=== PATIENT | female | born 1940 | race African-American/Black ===

== ENCOUNTER 2016-10-27 05:20 | Day surgery (SDC) ==
[2016-10-27] MEDS ORDERED: LR 1,000 ML ONE (05:26)
[2016-10-27] MEDS ORDERED: XYLOCAINE 1%/EPI 1:100,000 ONE (06:22)
[2016-10-27] MEDS ORDERED: HEPARIN ONE (06:22)
[2016-10-27] MEDS ORDERED: SENSORCAINE 0.25%/EPI 1:200,000 ONE (06:22)
[2016-10-27] MEDS ORDERED: NS 250 ML ONE (06:23)
[2016-10-27] MEDS: KEFZOL 1 GM/D5W 50 ML ONE ×2 (06:54→07:20)
[2016-10-27] MEDS ORDERED: DIPRIVAN 1% ONE (08:10)
[2016-10-27] MEDS ORDERED: ZOFRAN IV PRN (09:05)
[2016-10-27] MEDS ORDERED: NORCO-5 PO PRN (09:05)
[2016-10-27] MEDS ORDERED: BUPRENEX IV PRN (09:05)
--- NOTE | 2016-10-27 09:28 | Diag Imaging Result Document ---
PROCEDURE NAME: CHEST-PORTABLE - 10/27/2016 AP PORTABLE CHEST: TIME: 0810 hours. FINDINGS: There is a right-sided internal jugular Port-A-Cath with its tip in the upper portion of the superior vena cava. Otherwise, there has been no appreciable change since 07/24/2016, considering differences in inspiration. IMPRESSION: 1. No evidence of pneumothorax or pleural fluid collection. 2. Right Port-A-Cath, as described.
[2016-10-27 09:50] VITALS: BP 195/78
[2016-10-27] MEDS ORDERED: XYLOCAINE-MPF 2% ONE (10:09)
--- NOTE | 2016-10-27 12:24 | OPERATIVE NOTE ---
PROCEDURE DATE: 10/27/2016 PREOPERATIVE DIAGNOSES: Multiple myeloma. POSTOPERATIVE DIAGNOSIS: Multiple myeloma. PROCEDURE PERFORMED: Insertion of tunneled central venous catheter with port using ultrasound and fluoroscopic guidance. SURGEON: Rafa Whipple MD SCALEMAN: Sukhdev Galicia. ANESTHESIA: General. ESTIMATED BLOOD LOSS: 5 mL. COMPLICATIONS: None apparent. TECHNIQUE: The patient was brought to the operating room and placed supine on the table. General anesthesia was induced. She was prepped and draped in the usual sterile fashion. Marcaine 0.25% with epinephrine was used to anesthetize our skin incisions. An incision was made below the right clavicle. Dissection was carried down through the fat with cautery. The pocket for the port was created anterior to the pectoral fascia with cautery and blunt finger dissection. The patient was then placed in Trendelenburg. The right internal jugular vein was visualized with the [facility] ultrasound. The skin over the vein was anesthetized with Marcaine and an 11 blade was used to make a small incision in the skin. The vein was then accessed under ultrasound guidance, drawing back dark, nonpulsatile blood. The wire passed easily through the needle and was confirmed to be in the vein with ultrasound and in the right atrium with fluoroscopy. The wire was fixed to the drape. We then tunneled the catheter from the lower incision out through the neck incision. A dilator and sheath were passed over the wire. The wire and dilator were removed. The catheter was passed into the sheath. The sheath was removed. The tip of the catheter was checked with fluoroscopy and found to be in the superior vena cava right at the atrial junction. The catheter was then cut to size and fixed to the port. The port was anchored to the fascia with 2-0 Surgipro at 2 o'clock, 6 o'clock, and 10 o'clock. The port was accessed. It matthew back blood and was flushed with saline easily. The incisions were closed with interrupted subcutaneous 3-0 Polysorb and running 4-0 subcuticular Monocryl, and then Steri-Strips. There were no apparent complications. She was awakened in stable condition and transferred to the recovery room where a chest x-ray was ordered.
== END 2016-10-27 09:35 | disposition home or self-care (01) ==
LOC: OPS 05:20
PROVIDERS: ATTEND Surgery
DX: C90.00 Multiple myeloma not having achieved remission (principal); F17.210 Nicotine dependence, cigarettes, uncomplicated; M19.90 Unspecified osteoarthritis, unspecified site; I10 Essential (primary) hypertension
CPT/HCPCS: 71010; 77001; C1788; J0690; J7050; J7120

== ENCOUNTER 2016-12-12 19:04 | Inpatient (IN) ==
[2016-12-12] MEDS ORDERED: TYLENOL PO ONE (19:27)
[2016-12-12 19:36] LABS: MANUAL DIFF NEEDED? NO
[2016-12-12 19:39] LABS: BASO% 0.2 % (0.0-0.8); HEMATOCRIT 36.5 % (37.0-47.0); HEMOGLOBIN 12.2 g/dL (12.0-16.0); IMM GRAN# 0.02 X1000 (0.0-0.04); IMM GRAN% 0.3 % (0.0-0.5); LYMPH# 0.37 X1000 (1.2-3.4); LYMPH% 5.8 % (20.5-51.1); MCH 34.6 PG (27-31); MCHC 33.4 g/dL (33-37); MCV 103.4 FL (81-99); MONO# 1.21 X1000 (0.11-0.59); MONO% 18.9 % (1.7-9.3); MPV 11.7 FL (7.4-10.4); NEUT% 74.8 % (42.2-75.2); PLT 116 X1000 (130-400); RBC 3.53 XMIL (4.2-5.4)
--- NOTE | 2016-12-12 19:46 | ED EKG INTERP ---
EKG Interpretation - EKG Time of EKG reading by physician:: 19:37 EKG Read and Signed by:: Tim Hodge EKG Interpretation (*Must complete 3 of following elements*): Abnormal ( Possible L atrial enalrgement) Rate: 88 Rhythm: Normal sinus rhythm Attestation - Scribe Verification/Attestation Scribe:: Chico Matamoros Acting as Scribe for:: Tim Hodge Scribrenu documention review:: This chart was documented by a scribe and accurately reflects the service the provider performed and the decisions made by the provider.
[2016-12-12 19:48] LABS: INR 1.01; PROTIME 10.7 Seconds (9.2-11.7); PTT 27.2 Seconds (22.0-36.0)
--- NOTE | 2016-12-12 19:55 | PROVIDER DOCUMENTATION ---
HPI-General Adult - General Chief Complaint: Altered Mental Status Stated Complaint: AMS Time Seen by Provider: 12/12/16 19:21 Source: patient, family (daughter/son-in-law) Allergies/Adverse Reactions: Patient Allergies Allergy/AdvReac Type Severity Reaction Status Date / Time No Known Allergies Allergy Verified 10/26/16 10:06 Home Medications: Home Medication List Medication Instructions Recorded Confirmed Last Taken Type Nebivolol HCl [Bystolic] 10 mg PO DAILY 07/14/13 12/12/16 10/27/16 04:30 History 10 Alprazolam [Xanax] 0.5 mg PO PRN PRN 03/23/16 12/12/16 10/25/16 History 0.25 Folic Acid/Mv,Fe,Other Min/Lut 1 each PO DAILY 10/26/16 12/12/16 Unknown History [Certagen Tablet] Hydrocodone/Acetaminophen [Gallina 1 each PO PRN PRN #20 tablet 10/27/16 12/12/16 Unknown Rx 7.5-325 Tablet] Amlodipine [Norvasc] 5 mg PO DAILY 12/12/16 12/12/16 Unknown History Nebivolol HCl [Bystolic] 10 mg PO DAILY 12/12/16 12/12/16 Unknown History - History of Present Illness -Gen Adult Nature of Presenting Problems: Pt is a 76 yof who presents to ER via EMS with CC of AMS. Pt's daughter reports that pt woke up this am saying that she didn't feel right, had her temperature checked and had a fever of 102. Pt became more lethargic, confused, and altered as the day progressed and pt's daughter was going to take pt to see her doctor when she seized up (muscle stiffness) for 10 seconds prior to EMS arrival on scene. Pt complains of cough, sore throat, rhinorrhea, diarrhea, sob. Location of Pain/Injury: reports: none Pain Radiation: reports: no radiation Quality of Pain: reports: none Severity: reports: moderate Onset/Duration: reports: this morning Timing: reports: still present, improving Associated Symptoms: reports: cough, diarrhea, fatigue, seizure, weakness, trouble walking, other (AMS). denies: chest pain, constipation, diaphoresis, dizziness, fever/chills, headaches, loss of appetite, nausea, syncope, vomiting Review of Systems - Adult - REVIEW OF SYSTEMS - ADULT Constitutional: reports: fever (102), fatique. denies: chills, night sweats Eyes: reports: no symptoms reported Ears, Nose, Mouth & Throat: reports: no symptoms reported Cardiovascular: reports: no symptoms reported Respiratory: reports: cough, excessive sputum production, shortness of breath. denies: chronic cough, dyspnea on exertion, hemoptysis, pleurisy, wheezing Gastrointestinal: reports: diarrhea. denies: abdominal pain, hematemesis, constipation, difficulty swallowing, frequent heartburn, nausea, poor appetite, rectal bleeding, vomiting Genitourinary: reports: no symptoms reported Musculoskeletal: reports: no symptoms reported Integumentary: reports: no symptoms reported Neurological: reports: no symptoms reported Psychiatric: reports: other (AMS/confusion). denies: anxiety, anti-depressant use, alcohol/drug dependence, depression, emotional problems, insomnia, panic attacks, suicidal thoughts Endocrine: reports: no symptoms reported Hematologic/Lymphatic: reports: no symptoms reported Allergic/Immunologic: reports: no symptoms reported All Other Systems: Reviewed and Negative Past History - Adult - PAST MEDICAL HISTORY-ADULT Review of Records: reports: Nursing Assessment Review, Medications Reviewed Cardiovascular: reports: HTN Other Conditions: reports: other cancer (multiple myleoma) - PRIOR SURGERIES/PROCEDURES Surgical/Procedure History: reports: cholecystectomy (stent in leg), hysterectomy, other (stent ) - IMMUNIZATION STATUS Childhood Immunizations: See Nurse Assessment Flu Vaccine: See Nurse Assessment Physical Exam-General - PHYSICAL EXAM-ADULT Initial Vital Signs Reviewed: Yes - CONSTITUTIONAL General Appearance: appears well, alert, mild distress, lethargic, slow to respond. negative: obese, thin, anxious, obtunded, combative - NECK Neck: non-tender, full range of motion, supple. negative: lymphadenopathy, thyromegaly - RESPIRATORY Respiratory: chest non-tender, lungs clear, normal breath sounds. negative: respiratory distress, decreased breath sounds, accessory muscle use, rhonchi, wheezing - CARDIOVASCULAR Cardiovascular: normal peripheral pulses, regular rate, rhythm. negative: bradycardia, tachycardia, irregularly irregular - GASTROINTESTINAL (ABDOMEN) Abdominal Exam: negative: normal bowel sounds, non tender, soft, abnormal bowel sounds, distended, guarding, tenderness, mass - LYMPHATIC Lymphatic: no adenopathy. negative: axilla node tender, cervical node tenderness, inguinal node tender - MUSCULOSKELETAL Back Exam: no CVA tenderness, no vertebral tenderness. negative: CVA tenderness , decreased range of motion, ecchymosis, muscle spasm, vertebral tenderness - NEUROLOGIC Neurologic: grossly normal, no motor/sensory deficits - PSYCHIATRIC Psych/Mental Status: normal thought content, normal thought process, oriented x 3, disheveled Progress - PLAN OF CARE/RESULTS Progress/Plan/Lab Results: POC: Chest X-ray; Head CT; Blood work; Ammonia 2045: Influenza screen came back, positive for type A. Will be given tamiflu. Vital Signs - 24 hr 12/12/16 20:08 Pulse Rate 86 Respiratory 28 H Rate Blood Pressure 170/83 O2 Sat by Pulse 97 Oximetry Orders Category Date Time Status Cardiac Monitoring DIRECTED Care 12/12/16 19:26 Active Finger Stick Blood Sugar (ED) DIRECTED Care 12/12/16 19:26 Active Saline Loc NOW Care 12/12/16 19:26 Active CHEST-2 VIEWS [RAD] Stat Exams 12/12/16 19:27 Taken HEAD W/O CONTRAST [CT] Stat Exams 12/12/16 19:26 Ordered ALCOHOL BLOOD Stat Lab 12/12/16 19:20 Completed AMMONIA [CHEM] Stat Lab 12/12/16 20:35 Received BLOOD CULTURE [BLDCUL] Stat Lab 12/12/16 19:20 Results CBC WITH ELECTRONIC DIFF [HEME] Stat Lab 12/12/16 19:20 Completed CK PROFILE [SP CHEM] Stat Lab 12/12/16 19:20 Completed COMPREHENSIVE METABOLIC PANEL [CHEM] Stat Lab 12/12/16 19:20 Completed INFLUENZA SCREEN A/B Stat Lab 12/12/16 20:01 Completed LACTATE, PLASMA [CHEM] Stat Lab 12/12/16 19:20 Completed LIPASE [CHEM] Stat Lab 12/12/16 19:20 Completed PROTIME WITH INR [COAG] Stat Lab 12/12/16 19:20 Completed PTT [COAG] Stat Lab 12/12/16 19:20 Completed TROPONIN T Stat Lab 12/12/16 19:20 Completed URINALYSIS W/POSS RFLX CULT [URINALYSIS] Stat Lab 12/12/16 20:27 Completed URINE DRUG SCREEN Stat Lab 12/12/16 20:27 Received Acetaminophen [Tylenol] Med 12/12/16 19:27 Discontinued 1,000 mg PO NOW ONE Oseltamivir [Tamiflu] Med 12/12/16 20:46 Once 75 mg PO NOW ONE Pulse Oximetry Stat Oth 12/12/16 19:26 Active EKG [EKG] Stat Ther 12/12/16 19:26 Ordered Laboratory Tests 12/12/16 12/12/16 12/12/16 19:20 19:20 19:20 WBC 6.40 RBC 3.53 L Hgb 12.2 Hct 36.5 L MCV 103.4 H MCH 34.6 H MCHC 33.4 RDW Std Deviation 13.5 Plt Count 116 L MPV 11.7 H Immature Gran % (Auto) 0.3 Neut % (Auto) 74.8 Lymph % (Auto) 5.8 L Chambers % (Auto) 18.9 H Eos % (Auto) 0.0 Baso % (Auto) 0.2 Immature Gran # (Auto) 0.02 Neut # (Auto) 4.79 Lymph # (Auto) 0.37 L Chambers # (Auto) 1.21 H Eos # (Auto) 0.00 Baso # (Auto) 0.01 PT INR PTT (Actin FS) Sodium 138 Potassium 4.1 Chloride 101 Carbon Dioxide 20 L Anion Gap 17 BUN 12 Creatinine 1.3 H Estimated GFR/1.73 m2 48 BUN/Creatinine Ratio 9 Glucose 102 Calculated Osmolality 276 Calcium 8.3 L Total Bilirubin 0.70 AST 541 H ALT 316 H Alkaline Phosphatase 179 H Creatine Kinase 60 Troponin T Total Protein 8.0 Albumin 3.4 L Globulin 4.6 Albumin/Globulin Ratio 0.7 Lipase Plasma Lactate Urine Source Urine Color Urine Turbidity Urine pH Ur Specific [place] Urine Protein Ur Glucose (Stick) Ur Ketones (Stick) Urine Blood Urine Nitrite Urine Bilirubin Urobilinogen Dipstick Urine Leukocytes Urine WBC (Auto) Urine RBC (Auto) U Epithel Cells (Auto) Urine Bacteria (Auto) Plasma/Serum Ethyl Alc 12/12/16 12/12/16 12/12/16 19:20 19:20 19:20 WBC RBC Hgb Hct MCV MCH MCHC RDW Std Deviation Plt Count MPV Immature Gran % (Auto) Neut % (Auto) Lymph % (Auto) Chambers % (Auto) Eos % (Auto) Baso % (Auto) Immature Gran # (Auto) Neut # (Auto) Lymph # (Auto) Chambers # (Auto) Eos # (Auto) Baso # (Auto) PT 10.7 INR 1.01 PTT (Actin FS) 27.2 Sodium Potassium Chloride Carbon Dioxide Anion Gap BUN Creatinine Estimated GFR/1.73 m2 BUN/Creatinine Ratio Glucose Calculated Osmolality Calcium Total Bilirubin AST ALT Alkaline Phosphatase Creatine Kinase Troponin T < 0.010 Total Protein Albumin Globulin Albumin/Globulin Ratio Lipase Plasma Lactate 1.2 Urine Source Urine Color Urine Turbidity Urine pH Ur Specific [place] Urine Protein Ur Glucose (Stick) Ur Ketones (Stick) Urine Blood Urine Nitrite Urine Bilirubin Urobilinogen Dipstick Urine Leukocytes Urine WBC (Auto) Urine RBC (Auto) U Epithel Cells (Auto) Urine Bacteria (Auto) Plasma/Serum Ethyl Alc 12/12/16 12/12/16 19:20 20:27 WBC RBC Hgb Hct MCV MCH MCHC RDW Std Deviation Plt Count MPV Immature Gran % (Auto) Neut % (Auto) Lymph % (Auto) Chambers % (Auto) Eos % (Auto) Baso % (Auto) Immature Gran # (Auto) Neut # (Auto) Lymph # (Auto) Chambers # (Auto) Eos # (Auto) Baso # (Auto) PT INR PTT (Actin FS) Sodium Potassium Chloride Carbon Dioxide Anion Gap BUN Creatinine Estimated GFR/1.73 m2 BUN/Creatinine Ratio Glucose Calculated Osmolality Calcium Total Bilirubin AST ALT Alkaline Phosphatase Creatine Kinase Troponin T Total Protein Albumin Globulin Albumin/Globulin Ratio Lipase 21 Plasma Lactate Urine Source CATH Urine Color YELLOW Urine Turbidity CLEAR Urine pH 6.5 Ur Specific [place] 1.016 Urine Protein 70 A Ur Glucose (Stick) NEGATIVE Ur Ketones (Stick) NEGATIVE Urine Blood NEGATIVE Urine Nitrite NEGATIVE Urine Bilirubin NEGATIVE Urobilinogen Dipstick NORMAL Urine Leukocytes NEGATIVE Urine WBC (Auto) <10 Urine RBC (Auto) <10 U Epithel Cells (Auto) <10 Urine Bacteria (Auto) NEGATIVE Plasma/Serum Ethyl Alc - XRAY 1 XRAY: Bilateral XRAY Study: Chest Impression: See EMR Report XRAY Interpretation: Normal - CT/MRI 1 CT Study: Head Impression: See EMR Report CT Results: No acute pathology - CONSULTS/PCP/HOSPITALIST Notification #1 *Consult/PCP/Hospitalist*: Dr. Ramirez (Hospitalist) Time Discussed: 21:03 Consult Disposition: Admit Departure - Departure Time of Disposition Order: 20:46 DIAGNOSIS: Influenza A Disposition: ADMITTED INPATIENT 09 Certified Medical Emergency: Emergent Condition: Stable Additional Instructions: ED Follow Up Instructions: You have been treated by a care provider in the Emergency Department. These instructions are being provided to you so you can have an understanding of how to care for yourself upon discharge. Upon discharge from the Emergency Department, you are responsible for making arrangements for follow-up care by a physician of your choice. Take all prescribed medications as directed. Return to the Emergency Department immediately for any new or worsening symptoms. You may call the Physician Referral phone number at [phone] to obtain a list of Physicians who are taking new patients. Referrals: None,PCP [Primary Care Provider] - Attestation - Scribe Verification/Attestation Scribe:: Chico Matamoros Acting as Scribe for:: Tim Hodge Scribe documention review:: This chart was documented by a scribe and accurately reflects the service the provider performed and the decisions made by the provider.
[2016-12-12 19:56] LABS: ALBUMIN 3.4 g/dL (3.5-5.0); CALCIUM 8.3 mg/dL (8.8-10.2); POTASSIUM 4.1 mmol/L (3.5-5.1); TOTAL BILIRUBIN 0.7 mg/dL (0.20-1.00)
[2016-12-12 20:35] LABS: URINE CULTURE NEEDED? NO; URINE MICRO REVIEW NEEDED? NO; URINE SOURCE CATH
[2016-12-12 20:40] LABS: BILIRUBIN URINE NEGATIVE (NEGATIVE); BLOOD URINE NEGATIVE (NEGATIVE); COLOR YELLOW; GLUCOSE URINE NEGATIVE (NEGATIVE); LEUKOCYTES URINE NEGATIVE (NEGATIVE); NITRITE URINE NEGATIVE (NEGATIVE); PH URINE 6.5; PROTEIN URINE 70 mg/dL (NEGATIVE); SP GRAVITY URINE 1.016; TURBIDITY URINE CLEAR (CLEAR); UROBILINOGEN URINE NORMAL (NORMAL)
[2016-12-12 20:44] LABS: UR EPITHELIAL CELLS <10 /HPF (<10); URINE BACTERIA NEGATIVE /HPF; URINE RBC <10 /HPF (<10); URINE WBC <10 /HPF (<10)
[2016-12-12] MEDS ORDERED: TAMIFLU PO ONE (20:46)
[2016-12-12 20:53] LABS: UR AMPHETAMINES QUAL NONE DETECTED (NONE DETECT); UR BARBITUATES QUAL NONE DETECTED (NONE DETECT); UR BENZODIAZEPIN QUAL NONE DETECTED (NONE DETECT); UR CANNABINOIDS QUAL NONE DETECTED (NONE DETECT); UR COCAINE QUAL NONE DETECTED (NONE DETECT); UR METHADONE QUAL NONE DETECTED (NONE DETECT); UR OPIATES QUAL NONE DETECTED (NONE DETECT); UR OXYCODONE QUAL NONE DETECTED (NONE DETECT); UR PCP QUAL NONE DETECTED (NONE DETECT)
[2016-12-12] MEDS ORDERED: XANAX PO PRN (22:54)
[2016-12-12] MEDS ORDERED: LOVENOX SUBQ SCH (23:50)
[2016-12-12] MEDS ORDERED: ZOFRAN IV PRN (23:50)
[2016-12-12] MEDS ORDERED: SODIUM CHLORIDE 0.9% INJ SCH (23:50)
[2016-12-13] MEDS: NS 1,000 ML IV SCH ×2 (00:56→16:29)
[2016-12-13] MEDS: PROTONIX IV SCH (00:56)
--- NOTE | 2016-12-13 05:28 | EKG Report ---
Test Performed on : 12/12/2016 7:37:14 PM Test Reason : AMS Blood Pressure : / mmHG Vent. Rate : 088 BPM Atrial Rate : 088 BPM P-R Int : 140 ms QRS Dur : 072 ms QT Int : 390 ms P-R-T Axes : 066 010 087 degrees QTc Int : 471 ms Normal sinus rhythm. Possible Left atrial enlargement Borderline ECG When compared with ECG of 24-JUL-2016 18:10, Vent. rate has increased BY 34 BPM QT has lengthened Unconfirmed Result
[2016-12-13] MEDS ORDERED: TYLENOL ONE (06:40)
[2016-12-13] MEDS: TYLENOL PO PRN ×3 (06:44→22:25)
--- NOTE | 2016-12-13 07:00 | Diag Imaging Result Document ---
PROCEDURE NAME: CHEST-2 VIEWS - 12/12/2016 FRONTAL AND LATERAL CHEST, TWO VIEWS: COMPARISON: Compared to 10/27/2016. FINDINGS: The lungs are well expanded. The heart is not enlarged. The vessels are not distended. No change in the right jugular line. No pneumothorax. No pleural effusions. No infiltrates. IMPRESSION: No pneumonia.
--- NOTE | 2016-12-13 07:01 | HISTORY AND PHYSICAL ---
PRIMARY CARE PROVIDER: Mauricio Vincent MD in [place]. STONEWORKING BELT SANDER: Melvin Gomez MD. CHIEF COMPLAINT: Altered mental status and fever. HISTORY OF PRESENT ILLNESS: This is a 76-year-old, female with a history of multiple myeloma, hypertension, and anemia of chronic disease who presents to the emergency room today after having complaint of cough that started 2 days ago. The patient and her daughter at the bedside are poor historians. Apparently, the patient lives alone. She started having a cough. The daughter went to get her. The daughter states that she seized up. There was no tonic- clonic movement, just muscle stiffness. She did not lose consciousness. She did not have bowel or bladder incontinence. Prior to EMS arrival on the scene was when she had this stiffness. When they arrived, she was normal, complaining of cough, sore throat, diarrhea, runny nose and shortness of breath. On arrival to the emergency room, a CT of her head was obtained, which showed no acute pathology. Chest x-ray was no acute disease. Laboratory data was similar to patient's baseline other than an AST of 541 and ALT of 319 and a positive influenza A swab. She will be admitted for further evaluation and treatment. PAST MEDICAL HISTORY: Multiple myeloma without achieving remission. Polyneuropathy. Anemia of chronic disease. Iron deficiency. PREVIOUS SURGICAL HISTORY: 1. Port-A-Cath placement right-side of chest. 2. Hysterectomy. 3. Cholecystectomy. 4. Peripheral vascular disease with stenting to leg. SOCIAL HISTORY: She lives alone. Continues to smoke daily around a 1/4 pack of cigarettes a day. Uses alcohol rarely. Denies illicit drug use. FAMILY HISTORY: Positive for alcohol abuse in the father. Anemia in the daughter. Arthritis in the mother. Cancer of unknown origin in a brother, depression in the daughter. Hyperlipidemia in the daughter, hypertension in the brother, father, mother and sister. ALLERGIES: No known drug allergies. HOME MEDICATIONS: 1. Bystolic 10 mg p.o. daily. 2. Xanax 0.5 mg p.o. p.r.n. 3. Multivitamin 1 p.o. daily. 4. [place] 7.5 one p.o. p.r.n. 5. Norvasc 5 mg p.o. daily. REVIEW OF SYSTEMS: Fourteen point review of systems conducted with patient. All systems negative except for pertinent positives listed above in the HPI. PHYSICAL EXAMINATION: VITAL SIGNS: Temperature 97.4, pulse 83, respirations 23, blood pressure 125/60 , oxygen saturation 99% on room air. GENERAL: Pleasantly confused, 76-year-old female, who is oriented to person, place, and situation, but does have intermittent confusion. No acute distress lying in the ER stretcher. HEENT: Head is atraumatic, normocephalic. Pupils equal, round, reactive to light. Extraocular eye movement intact. Sclerae is anicteric. Conjunctivae is mildly pale. Oral mucosa is dry. Postnasal drip and rhinorrhea noted during ENT assessment. NECK: Supple. No JVD. No thyromegaly. Trachea is midline. CARDIAC: S1-S2 appreciated. No murmurs, gallops, rubs. Regular rhythm. LUNGS: Decreased airway entry bilaterally. Mildly prolonged expiratory phase. No rhonchi, no rales. Symmetrical rise and fall with respirations. ABDOMEN: Soft, nondistended, nontender. Bowel sounds present in all 4 quadrants. Normoactive. No pulsatile mass. No organomegaly. EXTREMITIES: No clubbing, cyanosis, or edema. Decreased pedal pulses bilaterally. GENITOURINARY: Patient voids. No bladder distention. Otherwise deferred. SKIN: Warm dry and intact. No acute lesions or rash. NEUROLOGICAL: Patient is intermittently confused. However, oriented to person , place and situation. DIAGNOSTIC DATA: CT of the head, no acute intracranial process. Chest x-ray shows no acute disease. LABORATORY DATA: WBC 6.40, hemoglobin 12.2, hematocrit 36.5, platelet count 116. Coags within normal limits. Sodium 138, potassium 4.1, chloride 101, carbon dioxide 20, BUN 12, creatinine 1.3, glucose 102. AST 541, ALT 316, alkaline phosphate 179. Urine unremarkable. Toxicology screen negative. ASSESSMENT AND PLAN: 1. Influenza A. We will start the patient on Tamiflu 75 mg p.o. b.i.d. for the next 5 days. 2. Hypertension. Continue her Norvasc and Bystolic. 3. Anxiety, continue Xanax. 4. Chronic renal insufficiency. Give gentle fluid hydration, normal saline at 70 mL an hour. 5. Altered mental status. This could be secondary to febrile illness. Also could be related to acute hepatic encephalopathy. We will rule this out. 6. Acute hepatitis. Likely secondary to viral influenza. We will send a hepatitis panel. Consult Dr. Isabella Malhotra for further evaluation related to elevated liver function tests. We will check an ammonia level for source of confusion as well. Further recommendations per patient clinical course. Dictated by MELISSA Tapia for Smith Ramirez MD I did an independent exam and assessment of the patient and discussed plan of care with BATH STEWARD CASSANDRA
--- NOTE | 2016-12-13 07:16 | Diag Imaging Result Document ---
PROCEDURE NAME: HEAD W/O CONTRAST - 12/12/2016 STUDY: CT brain without contrast. COMPARISON: 07/24/16. FINDINGS: No parenchymal hemorrhage. No epidural or subdural hematoma. No subarachnoid hemorrhage. No mass identified on this noncontrasted exam. There are chronic microvascular ischemic changes with an appearance similar to that of the prior exam. No hydrocephalus. No sinus opacification. IMPRESSION: 1. No hemorrhage. 2. Chronic microvascular ischemic changes. A preliminary report was given at 8:07 p.m.
[2016-12-13 07:40] LABS: ALBUMIN 2.8 g/dL (3.5-5.0); POTASSIUM 3.8 mmol/L (3.5-5.1); TOTAL BILIRUBIN 0.61 mg/dL (0.20-1.00); TOTAL PROTEIN 7.1 g/dL (6.3-8.3)
[2016-12-13 07:52] LABS: BASO% 0.2 % (0.0-0.8); EOS# 0.01 X1000 (0.0-0.7); EOS% 0.2 % (0.0-10.0); HEMATOCRIT 33.3 % (37.0-47.0); HEMOGLOBIN 11.1 g/dL (12.0-16.0); LYMPH# 0.63 X1000 (1.2-3.4); LYMPH% 13.8 % (20.5-51.1); MANUAL DIFF NEEDED? YES; MCH 34.5 PG (27-31); MCHC 33.3 g/dL (33-37); MCV 103.4 FL (81-99); MONO# 1.24 X1000 (0.11-0.59); MONO% 27.1 % (1.7-9.3); NEUT% 58.7 % (42.2-75.2); PLT 109 X1000 (130-400); RBC 3.22 XMIL (4.2-5.4)
[2016-12-13 08:20] LABS: BANDS 7 % (0-1); LYMPHS 10 % (21-51); MONO 25 % (1-9)
[2016-12-13 08:21] LABS: LARGE PLATELETS OCCASIONAL
[2016-12-13] MEDS: NORVASC PO SCH (08:35)
[2016-12-13] MEDS: TAMIFLU PO SCH ×2 (08:35→22:25)
[2016-12-13] MEDS: BYSTOLIC PO SCH (09:22)
[2016-12-13] MEDS: CENTRUM TABLET PO SCH (09:22)
[2016-12-13] MEDS ORDERED: XANAX PO PRN (12:53)
--- NOTE | 2016-12-13 15:36 | PROGRESS NOTE ---
DATE: 12/13/2016 SUBJECTIVE: The patient states that she feels a lot better at this time. She denies any nausea, vomiting, or diarrhea. OBJECTIVE: Vital Signs: Temperature 99 degrees, blood pressure 140/70, heart rate 70, respirations 16, O2 saturations 97% on room air. General Appearance: This is an elderly female, lying comfortably on the stretcher, in no acute distress. Head: Normocephalic, atraumatic. Heart: S1, S2 normal. Regular rate and rhythm. Lungs: Clear to auscultation bilaterally. No wheezing. No rales. No rhonchi. Abdomen: Positive bowel sounds. Soft, nontender, nondistended. Extremities: No edema. No cyanosis. No calf tenderness. Neurologic: The patient is alert and oriented x3. No focal neurologic deficits noted. LABS: White blood cell count 4.5, hemoglobin 11, hematocrit 33, platelets 109,000. Sodium 132, potassium 3.8, chloride 98, CO2 22, BUN 13, creatinine 1.1. Glucose 100. AST 202, ALT 200, alkaline phosphatase 141. ASSESSMENT AND PLAN: 1. Influenza A. We will continue with supportive care. The patient is currently on Tamiflu. The patient's chest x-ray is negative. 2. Elevated liver function tests. Will order a hepatitis profile, as well as an abdominal ultrasound. GI has been consulted as well. 3. Multiple myeloma. The patient is followed by Dr. Melvin Gomez. He has been consulted for further recommendations. 4. Hypertension. Controlled. Continue on Bystolic and Norvasc. 5. Anxiety disorder. Continue on p.r.n. Xanax. 6. Thrombocytopenia. Will discontinue the Lovenox at this time and monitor the patient's platelet count closely. No active bleeding noted. 7. Will consult physical therapy.
--- NOTE | 2016-12-13 16:52 | Diag Imaging Result Document ---
PROCEDURE NAME: US ABDOMEN-COMPLETE - 12/13/2016 ABDOMINAL ULTRASOUND: FINDINGS: Normal pancreas. No aneurysmal dilatation to the abdominal aorta. Normal inferior vena cava. No focal hepatic abnormality. A 1.6 cm septated cyst arises from the upper pole of the right kidney. No stone or hydronephrosis. The common bile duct measures 8 mm. The gallbladder is not present. Normal left kidney. No hydronephrosis. The spleen is not enlarged. No ascites. IMPRESSION: 1. Cholecystectomy. 2. Small right renal cyst.
[2016-12-14] MEDS: PROTONIX IV SCH (00:39)
[2016-12-14 03:15] VITALS: BP 138/62
[2016-12-14 06:59] LABS: MANUAL DIFF NEEDED? NO
[2016-12-14 07:03] LABS: BASO% 0.2 % (0.0-0.8); EOS# 0.04 X1000 (0.0-0.7); EOS% 0.8 % (0.0-10.0); HEMATOCRIT 32.7 % (37.0-47.0); HEMOGLOBIN 10.8 g/dL (12.0-16.0); IMM GRAN# 0.02 X1000 (0.0-0.04); IMM GRAN% 0.4 % (0.0-0.5); LYMPH# 0.97 X1000 (1.2-3.4); LYMPH% 19.1 % (20.5-51.1); MCH 34.2 PG (27-31); MCV 103.5 FL (81-99); MONO# 0.93 X1000 (0.11-0.59); MONO% 18.3 % (1.7-9.3); MPV 12.9 FL (7.4-10.4); NEUT% 61.2 % (42.2-75.2); PLT 103 X1000 (130-400); RBC 3.16 XMIL (4.2-5.4)
[2016-12-14 07:42] LABS: AGAP 13; ALKALINE PHOSPHATASE 116 U/L (32-104); BUN 13 mg/dL (8-22); CALCIUM 7.8 mg/dL (8.8-10.2); CHLORIDE 107 mmol/L (98-107); COSMO 279; GOT 71 U/L (10-30); GPT 113 U/L (10-36); POTASSIUM 3.9 mmol/L (3.5-5.1); SODIUM 140 mmol/L (136-145); TCO2 20 mmol/L (25-35); TOTAL BILIRUBIN 0.37 mg/dL (0.20-1.00); TOTAL PROTEIN 6.9 g/dL (6.3-8.3)
[2016-12-14] MEDS: CENTRUM TABLET PO SCH (08:09)
[2016-12-14] MEDS: TAMIFLU PO SCH (08:09)
[2016-12-14] MEDS: NS 1,000 ML IV SCH (08:10)
[2016-12-14] MEDS: NORVASC PO SCH (08:10)
[2016-12-14] MEDS: BYSTOLIC PO SCH (08:10)
[2016-12-14] MEDS: TYLENOL PO PRN (08:35)
[2016-12-14 10:35] LABS: HEPATITIS PROFILE ACUTE SEE COMMENTS (())
[2016-12-14] MEDS ORDERED: HEPARIN ONE (14:33)
--- NOTE | 2016-12-14 16:24 | CONSULTATION ---
DATE OF CONSULTATION: 12/13/2016 ADMITTING PHYSICIAN: Smith Ramirez MD REQUESTING PHYSICIAN: Smith Ramirez MD REQUESTING PHYSICIAN: DIRECTOR TEEN POST: Dr. Melvin Gomez PRIMARY CARE PROVIDERS: Dr. Mauricio Vincent CHIEF COMPLAINT: Altered mental status and fever. HISTORY OF PRESENT ILLNESS: Ms. Vásquez is a very pleasant 76-year-old, female with a history of multiple myeloma. She is currently being treated with Kyprolis and Cytoxan and is due for cycle 5 day 8 today. The patient presented to [facility] with complaint of fever and confusion according to the patient's family. The patient's daughter reports additionally that she had a questionable seizure where she had muscle stiffness. She had no jerking. She did not lose continence. Additionally, she did not have bowel or bladder incontinence. Upon presentation to [facility] Emergency Room, the patient underwent CT of the head, which showed no acute pathology. Chest x-ray was obtained as well which showed no acute disease. The patient was tested for influenza and was found to have influenza A. Additionally, the patient does have elevated liver function tests and is found to have acute hepatitis. PAST MEDICAL HISTORY: 1. Multiple myeloma. 2. Polyneuropathy. 3. Anemia of chronic disease. 4. Iron deficiency. PAST SURGICAL HISTORY: 1. Port-A-Cath placement. 2. Hysterectomy. 3. Cholecystectomy. 4. Peripheral vascular disease with stenting to leg. SOCIAL HISTORY: The patient does live alone. She smokes 1/4 pack cigarettes daily. She does not use alcohol or illicit drugs. FAMILY HISTORY: Significant for cancer of unknown type in her brother. MEDICATIONS ON ADMISSION: 1. Bystolic. 2. Xanax. 3. Multivitamins. 4. [place]. 5. Norvasc. ALLERGIES: The patient has no known drug allergies. REVIEW OF SYSTEMS: A 14 point review of systems was obtained and is negative except as mentioned in HPI. PHYSICAL EXAMINATION: General: Ms. Vásquez is a very pleasant 76-year-old, female, lying supine in bed, ill appearing at this time. Vital Signs: Temperature 102.5 degrees, blood pressure 171/72, heart rate 86, respirations 27. O2 saturation is 96% on room air. HEENT: Normocephalic, atraumatic. Mucous membranes are pink and dry. Sclerae is anicteric. Extraocular movements intact. Neck: Supple. Lungs: Clear to auscultation bilaterally. Chest expansion is equal bilaterally. CARDIOVASCULAR: S1, S2 is heard without murmur, rub or gallop. Abdomen: Soft, nondistended, nontender. Bowel sounds positive all quadrants. No rebound or guarding noted. Extremities: Without clubbing, cyanosis, or edema. Dermatologic: No rashes, bruises or lesions. Neurologic: The patient is awake, she is oriented x2. She has no focal deficit at this time. LABORATORY DATA: Hemoglobin 11.1, hematocrit 33.3, white blood cell count 4.57, platelets 109,000. ANC is 2.68, sodium 132, potassium 3.8, chloride 98, CO2 is 22, BUN 13, creatinine 1.1. Glucose is 100. Magnesium 2. Bilirubin 0.61, alkaline phosphatase 141, AST is 202, ALT 200, albumin 2.8, globulin is 4.3. Urinalysis is negative for urinary tract infection. Influenza A is positive. ASSESSMENT AND PLAN: 1. Multiple myeloma in patient currently on Kyprolis and Cytoxan. She is due for cycle 5 day 8 of chemotherapy today. We will hold her chemotherapy until her acute illness passes. 2. Influenza A. The patient has been started on Tamiflu at this time. We agree with intravenous fluid hydration. 3. Acute hepatitis with elevation of AST and ALT to [address] Malhotra has been consulted. 4. Hypertension persists, with a blood pressure of 171/72. We agree with continuing antihypertensives as ordered. 5. Acute renal insufficiency, which is improving with a creatinine of 1.1. We agree with intravenous fluids as ordered. 6. We will follow along with you and make further recommendations pending outcomes. The above reflects the history, examination, assessment and plan of Dr. Gomez. We appreciate this consult. Dictated by MELISSA Tsai for Melvin Gomez MD
== END 2016-12-14 15:15 | disposition home or self-care (01) | DRG 866 ==
LOC: EDBD → SUPCPDRO 19:04 → ED 19:04 → EDIPHOLD 12-13 00:59 → 3N 12-13 13:30
PROVIDERS: ATTEND Internal Medicine
DX: J10.89 Influenza due to other identified influenza virus with other manifestations (principal); C90.00 Multiple myeloma not having achieved remission; D69.6 Thrombocytopenia, unspecified; I12.9 Hypertensive chronic kidney disease with stage 1 through stage 4 chronic kidney disease, or unspecified chronic kidney disease; F17.210 Nicotine dependence, cigarettes, uncomplicated; D50.9 Iron deficiency anemia, unspecified; B17.9 Acute viral hepatitis, unspecified; G62.9 Polyneuropathy, unspecified; D63.8 Anemia in other chronic diseases classified elsewhere; N18.9 Chronic kidney disease, unspecified; F41.9 Anxiety disorder, unspecified; Z79.899 Other long term (current) drug therapy; Z82.49 Family history of ischemic heart disease and other diseases of the circulatory system
CPT/HCPCS: 36415; 70450; 71020; 76700; 80053; 80074; 81001; 82140; 82550; 82948; 83516; 83605; 83690; 83735; 84443; 84484; 85025; 85610; 85730; 86038; 86255; 87040; 87804; 93005; 96372; 96374; C9113; G0480; J1650; J7030; P9612; 80320; 80324; 80345; 80346; 80349; 80353; 80358; 80361; 80365; 83992; S0164

== ENCOUNTER 2016-12-25 08:09 | Day surgery (SDC) ==
[2016-12-25] MEDS ORDERED: DIPRIVAN 1% ONE ×2 (08:33→10:39)
[2016-12-25] MEDS ORDERED: NS 1,000 ML ONE (08:37)
[2016-12-25 08:48] LABS: MANUAL DIFF NEEDED? NO
[2016-12-25 08:50] LABS: BASO% 0.2 % (0.0-0.8); EOS# 0.05 X1000 (0.0-0.7); EOS% 0.8 % (0.0-10.0); HEMATOCRIT 34.5 % (37.0-47.0); HEMOGLOBIN 11.3 g/dL (12.0-16.0); IMM GRAN# 0.03 X1000 (0.0-0.04); IMM GRAN% 0.5 % (0.0-0.5); LYMPH# 0.88 X1000 (1.2-3.4); LYMPH% 14.9 % (20.5-51.1); MCH 33.8 PG (27-31); MCHC 32.8 g/dL (33-37); MCV 103.3 FL (81-99); MONO# 0.72 X1000 (0.11-0.59); MONO% 12.2 % (1.7-9.3); MPV 12.1 FL (7.4-10.4); NEUT% 71.4 % (42.2-75.2); PLT 170 X1000 (130-400); RBC 3.34 XMIL (4.2-5.4)
[2016-12-25] MEDS ORDERED: SENSORCAINE-MPF 0.5%/EPI 1:200,000 ONE (09:19)
[2016-12-25 09:21] LABS: LYMPHS 12 % (21-51); MONO 10 % (1-9)
[2016-12-25 10:49] LABS: FLOW CYTOMETERY SOURCE BONE MARROW; LEUKEMIA LYMPHOMA BY FLOW REFERRED FOR TESTING
[2016-12-25] MEDS ORDERED: XYLOCAINE-MPF 2% ONE (10:54)
[2016-12-25 11:07] VITALS: BP 160/94
== END 2016-12-25 11:10 | disposition home or self-care (01) ==
LOC: ENDO 08:09
PROVIDERS: ATTEND Internal Medicine Hematology & Oncology
DX: C90.00 Multiple myeloma not having achieved remission (principal); D63.0 Anemia in neoplastic disease; G62.9 Polyneuropathy, unspecified; I10 Essential (primary) hypertension; M19.90 Unspecified osteoarthritis, unspecified site; F41.9 Anxiety disorder, unspecified; Z79.899 Other long term (current) drug therapy; Z79.1 Long term (current) use of non-steroidal anti-inflammatories (NSAID); F17.210 Nicotine dependence, cigarettes, uncomplicated; Z95.828 Presence of other vascular implants and grafts
CPT/HCPCS: 85025; 85999; 88305; 88311; 88313; J7030; S0020

== ENCOUNTER 2018-12-10 21:34 | Inpatient (IN) ==
[2018-12-10] MEDS ORDERED: TYLENOL PO ONE (22:00)
[2018-12-10] MEDS ORDERED: NS 1,000 ML IV ONE (22:17)
[2018-12-10] MEDS ORDERED: ROCEPHIN 1 GM in NS 50 ML IV ONE (22:17)
[2018-12-10] MEDS ORDERED: VANCOMYCIN 1 GM/NS 1 GM/250 ML IVPB IV ONE (23:20)
[2018-12-11 00:01] LABS: BASO# 0.01 X1000 (0.0-0.2); BASO% 0.1 % (0.0-0.8); EOS# 0.07 X1000 (0.0-0.7); EOS% 0.5 % (0.0-10.0); HEMATOCRIT 31.1 % (37.0-47.0); HEMOGLOBIN 9.8 g/dL (12.0-16.0); IMM GRAN# 0.06 X1000 (0.0-0.04); IMM GRAN% 0.5 % (0.0-0.5); LYMPH# 0.42 X1000 (1.2-3.4); LYMPH% 3.2 % (20.5-51.1); MCH 32.8 PG (27-31); MCHC 31.5 g/dL (33-37); MONO# 1.01 X1000 (0.11-0.59); MONO% 7.7 % (1.7-9.3); MPV 12.2 FL (7.4-10.4); NEUT# 11.52 X1000 (1.4-6.5); PLT 164 X1000 (130-400); RBC 2.99 XMIL (4.2-5.4); RDW 14.1 % (11.5-14.5); WBC 13.09 X1000 (4.8-10.8)
[2018-12-11 00:14] LABS: CALCIUM 8.4 mg/dL (8.8-10.2); CREATININE 1.4 mg/dL (0.5-0.9); POTASSIUM 4.1 mmol/L (3.5-5.1)
[2018-12-11] MEDS ORDERED: MORPHINE IV PRN (01:26)
--- NOTE | 2018-12-11 01:29 | PROVIDER DOCUMENTATION ---
This chart was entered by Tim Cisneros Scribe, acting as scribe for Sabino Law MD. HPI-General Adult - General Chief Complaint: Fever Stated Complaint: VOMITING/INCOHERENT/FEVER-HAD CHEMO TODAY Time Seen by Provider: 12/10/18 21:53 Source: patient, family Unable to obtain history due to:: altered Allergies/Adverse Reactions: Patient Allergies Allergy/AdvReac Type Severity Reaction Status Date / Time No Known Allergies Allergy Verified 12/11/18 00:51 Home Medications: Home Medication List Medication Instructions Recorded Confirmed Last Taken Type Nebivolol HCl [Bystolic] 10 mg PO DAILY 07/14/13 12/11/18 12/10/18 09:00 History Alprazolam [Xanax] 0.5 mg PO PRN PRN 03/23/16 12/11/18 12/18/16 History Hydrocodone/Acetaminophen [[place] 1 each PO PRN PRN #20 tablet 10/27/16 12/11/18 12/15/16 Rx 7.5-325 Tablet] Diphenoxylate/Atropine [Lomotil] 2.5 mg PO TID PRN 12/11/18 12/11/18 Unknown History Enalapril/Hydrochlorothiazide 1 each PO QAM 12/11/18 12/11/18 12/10/18 09:00 History [Enalapril-Hctz 5-12.5 mg Tab] - History of Present Illness -Gen Adult Nature of Presenting Problems: Pt is a 78 y/o with multiple myloma on maintenance infusion chemo today presents to the ED with fever and confusion. The daughter brings the pt instating she is not at her baseline. patient report vomiting x2 and cough. denies other complaints. Review of Systems - Adult - REVIEW OF SYSTEMS - ADULT ROS:: limited per condition Constitutional: reports: fever. denies: chills Eyes: reports: no symptoms reported Ears, Nose, Mouth & Throat: reports: no symptoms reported Cardiovascular: reports: no symptoms reported Respiratory: reports: cough Gastrointestinal: reports: vomiting Genitourinary: reports: no symptoms reported Musculoskeletal: reports: no symptoms reported Integumentary: reports: no symptoms reported Neurological: denies: dizziness/vertigo, headache/migraines Psychiatric: reports: no symptoms reported Endocrine: reports: no symptoms reported Hematologic/Lymphatic: reports: no symptoms reported Allergic/Immunologic: reports: no symptoms reported All Other Systems: Reviewed and Negative Past History - Adult - PAST MEDICAL HISTORY-ADULT Review of Records: reports: Old Records Reviewed, Nursing Assessment Review, Medications Reviewed Cardiovascular: reports: HTN Other Conditions: reports: other cancer (multiple myleoma) - PRIOR SURGERIES/PROCEDURES Surgical/Procedure History: reports: cholecystectomy (stent in leg), hysterectomy, other (stent ) - IMMUNIZATION STATUS Childhood Immunizations: See Nurse Assessment Flu Vaccine: See Nurse Assessment - SOCIAL HISTORY Smoking: cigarettes, greater than 1 pack/day Substance Use: alcohol Alcohol Use Frequency: occasionally Living Situation: family Physical Exam-General - PHYSICAL EXAM-ADULT Initial Vital Signs Reviewed: Yes - CONSTITUTIONAL General Appearance: alert, no apparent distress, other (A&OX2 Knows herself and where she is at) - EYES Eyes: PERRL/EOMI, pink conjunctivae - HEAD, EARS, NOSE, MOUTH & THROAT HENMT: moist mucous membranes, normal ENT inspection - RESPIRATORY Respiratory: chest non-tender, lungs clear, normal breath sounds, no pleuratic chest pain, no respiratory distress, no accessory muscle use - CARDIOVASCULAR Cardiovascular: normal peripheral pulses, regular rate, rhythm - GASTROINTESTINAL (ABDOMEN) Abdominal Exam: non tender, soft - MUSCULOSKELETAL Back Exam: normal inspection, no CVA tenderness, no vertebral tenderness Extremity: non-tender, normal gait, normal inspection, no pedal edema - SKIN Integumentary: normal color, normal turgor, warm/dry - NEUROLOGIC Neurologic: grossly normal, no motor/sensory deficits - PSYCHIATRIC Psych/Mental Status: normal mood/affect, normal thought content, normal thought process, oriented x 3 Progress - PLAN OF CARE/RESULTS Progress/Plan/Lab Results: Vital Signs - 8 hr 12/10/18 21:43 Temperature 101.1 F H Pulse Rate 88 Respiratory Rate 19 Blood Pressure 167/62 O2 Sat by Pulse Oximetry 100 12/10/18 21:48 Influenza Screen - Final Nasopharyngeal Orders Category Date Time Status cxr [CHEST-2 VIEWS] [RAD] Stat Exams 12/10/18 22:14 Taken BLOOD CULTURE [BLDCUL] Stat Lab 12/10/18 22:18 Uncollected BMP [BASIC METABOLIC PANEL] [CHEM] Stat Lab 12/10/18 22:15 Uncollected CBC WITH ELECTRONIC DIFF [HEME] Stat Lab 12/10/18 22:15 Uncollected Flu Swab [INFLUENZA SCREEN A/B] Stat Lab 12/10/18 21:48 Completed LACTATE, PLASMA [CHEM] Stat Lab 12/10/18 22:17 Uncollected 0.9% Sodium Chloride Inj [Ns] 1,000 ml Med 12/10/18 22:17 Active IV 999 mls/hr Acetaminophen [Tylenol] Med 12/10/18 22:00 Discontinued 650 mg PO NOW ONE CefTRIAXONE [Rocephin] 1 gm Med 12/10/18 22:17 Discontinued 0.9% Sodium Chloride Inj [Ns] 50 ml IV NOW Patient care, assessment and plan discussed with the attending physician Dr. Vergara and he agree with the plan as documented. Result Diagrams: 12/10/18 23:30 12/10/18 23:30 - CONSULTS/PCP/HOSPITALIST Notification #1 *Consult/PCP/Hospitalist*: Hospitalist- Dr Lees Time Discussed: 00:01 Reason/Comments: Admission Consult Disposition: Admit (accepts. Hx, PE and patient care discussed with Dr. Lees.) Departure - Departure Date of Disposition Decision: 12/11/18 Time of Disposition Decision: 00:02 DIAGNOSIS: Confusion Pneumonia Qualifiers: Pneumonia type: due to unspecified organism Sepsis Qualifiers: Sepsis type: sepsis due to unspecified organism Qualified Code(s): A41.9 - Sepsis, unspecified organism Disposition: ADMITTED INPATIENT 09 Certified Medical Emergency: Emergent Condition: Serious Referrals and Follow-Ups: Arabella Khan MD [Primary Care Provider] - - Critical Care Note This patient required my direct & personal management of CC.: No Attestation - Physician/ SHUN Attestation Patient care was provided by Advanced Practice Provider:: No The physician spent face to face time with patient:: Yes Advanced Practice Provider documentation review:: Supervising physician onsite and consulted in the evaluation and care of this patient. The physician did have a face to face encounter with the patient. This chart was documented by the indicated scribe, (Tim Cisneros Scribe) and accurately reflects the services I performed and decisions made by me, Sabino Law MD, as attested by the provider's signature.
[2018-12-11] MEDS ORDERED: SODIUM CHLORIDE 0.9% INJ SCH (01:45)
--- NOTE | 2018-12-11 02:09 | HISTORY AND PHYSICAL ---
PRIMARY CARE PHYSICIAN: Dr. Mauricio Vincent in [place]. PRIMARY OPERATIONS OFFICER/ONCOLOGIST: Dr. Melvin Gomez. CHIEF COMPLAINT: Fever, altered mental status. HISTORY OF PRESENT ILLNESS: This is a chronically ill-looking, 78-year-old female with history of multiple myeloma under active treatment, who was brought to the emergency department because during the last 24 to 48 hours, she was confused and having fever. They report that she had multiple myeloma chemotherapy today. Usually she takes chemotherapy 2 times per week 3 out of 4 weeks per month, and she started developing fever, mild cough. She was feeling nauseated and she was vomiting, actually today. That is the reason why she was brought to the emergency department. Here, upon ER evaluation, she was found to have a leukocytosis with a temperature 101.1 degrees and x-rays shows community-acquired pneumonia, so she is going to be admitted for further evaluation and treatment. PAST MEDICAL HISTORY: 1. Multiple myeloma, under active treatment. 2. Anemia of chronic disease. 3. Hypertension. 4. Iron deficiency anemia. PAST SURGICAL HISTORY: 1. Cholecystectomy. 2. Hysterectomy. 3. Port-A-Cath placement in the right side of the chest. 4. Peripheral vascular disease with stenting to the leg. SOCIAL HISTORY: She lives alone. Reports not drinking alcohol or using illicit drugs. FAMILY HISTORY: Positive for alcohol abuse in father, anemia in daughter, arthritis in her mother. ALLERGIES: No known drug allergies. REVIEW OF SYSTEM: Eleven-system were reviewed and all symptoms are related to H and P. PHYSICAL EXAMINATION: VITALS: Temperature 101.1 degrees, heart rate 88, respiratory rate 19, blood pressure 167/62, O2 saturation 100% on room air. GENERAL: This is a chronically ill-looking, 78-year-old female lying in bed, in no acute distress. HEENT: Head is normocephalic, with mucous membranes dry. Anicteric sclerae and pale conjunctivae. Pupils equal, round, reactive to light and accommodation. NECK: No JVD noted. No carotid bruits. No lymphadenopathy. No thyromegaly. CARDIOVASCULAR: S1, S2 heard. No murmurs, gallops, or rubs. Regular rate and rhythm. RESPIRATORY: Minimal coarse breath sounds in both pulmonary bases. Patient is not using any accessory muscles or having work of breathing. ABDOMEN: Soft. Nontender to palpation. Bowel sounds present. No organomegaly. EXTREMITIES: No clubbing, cyanosis, or edema. Peripheral pulses present in both legs. NEUROLOGIC: Patient is awake, alert, oriented x2. Moves 4 extremities. LABORATORY DATA: White cell count 13.09, hemoglobin 9.8, hematocrit 31.1, platelets 164,000. Creatinine is 1.4. IMAGING: X-ray has not been reported but was interpreted as per ER physician as community- acquired pneumonia. ASSESSMENT AND PLAN: 1. Community-acquired pneumonia. That is reason why this patient is in the hospital. White cell count is mildly elevated. She is not requiring any oxygen supplementation. At this point, what we are going to do is to provide broad-spectrum antibiotics considering that she is immunosuppressed because of the multiple myeloma treatment. She is going to receive Zyvox and cefepime. We will also provide IV fluids. I do not think this patient has sepsis even though she has fever and elevated white cell count. She is not tachycardic and not requiring any oxygen supplementation. At this time, we will continue with the treatment outlined before. 2. Multiple myeloma. Patient is on active treatment for that, but considering her current situation, I do not think we are going to continue with any treatment until this infection resolves. 3. Chronic kidney disease, stage 1. Basically, creatinine is at baseline. We will continue to monitor this patient closely IV fluids will be provided. 4. Hypertension. We will continue with home medications. 5. Anemia of chronic disease. Hemoglobin is stable. We will continue to monitor CBC daily. 6. Further recommendations to follow according to the clinical situation of the patient. cc: Donnie Donohue MD [facility]
[2018-12-11] MEDS ORDERED: ZOFRAN IV PRN (02:36)
[2018-12-11] MEDS: SODIUM CHLORIDE 0.9% INJ SCH (03:24)
[2018-12-11] MEDS: LOVENOX SUBQ SCH (03:24)
[2018-12-11] MEDS: ZYVOX 600 MG/D5W 600 MG/300 ML IVPB IV SCH ×2 (03:24→13:56)
[2018-12-11] MEDS: PROTONIX IV SCH (03:24)
--- NOTE | 2018-12-11 06:24 | Diag Imaging Result Doc PS360 ---
CHEST-2 VIEWS - 12/10/2018 INDICATION: fever, confusion, cough COMPARISON: 12/12/2016 FINDINGS: Stable right chest port in good position. There are new ill-defined interstitial markings in the lung bases bilaterally. Heart size is normal. No pneumothorax or pleural effusion. IMPRESSION: Ill-defined interstitial infiltrates in the lung bases compatible with atypical pneumonia. Correlate clinically. Electronically signed by Mihir Luo 12/11/2018 6:22 AM
[2018-12-11 06:42] LABS: BASO# 0.02 X1000 (0.0-0.2); BASO% 0.1 % (0.0-0.8); EOS# 0.04 X1000 (0.0-0.7); EOS% 0.2 % (0.0-10.0); HEMATOCRIT 27.3 % (37.0-47.0); HEMOGLOBIN 8.5 g/dL (12.0-16.0); IMM GRAN# 0.04 X1000 (0.0-0.04); IMM GRAN% 0.2 % (0.0-0.5); LYMPH# 0.98 X1000 (1.2-3.4); LYMPH% 5.9 % (20.5-51.1); MCH 32.6 PG (27-31); MCHC 31.1 g/dL (33-37); MCV 104.6 FL (81-99); MONO# 1.24 X1000 (0.11-0.59); MONO% 7.5 % (1.7-9.3); MPV 12.4 FL (7.4-10.4); NEUT# 14.21 X1000 (1.4-6.5); NEUT% 86.1 % (42.2-75.2); PLT 154 X1000 (130-400); RBC 2.61 XMIL (4.2-5.4); RDW 14.3 % (11.5-14.5); WBC 16.53 X1000 (4.8-10.8)
[2018-12-11 07:00] LABS: CALCIUM 7.8 mg/dL (8.8-10.2); CREATININE 1.9 mg/dL (0.5-0.9); POTASSIUM 4.1 mmol/L (3.5-5.1)
--- NOTE | 2018-12-11 07:09 | Diag Imaging Result Doc PS360 ---
EXAM: CT THORAX W/O CONTRAST 12/11/2018 HISTORY: pna TECHNIQUE: This exam was performed using automated exposure control, adjustment of mA or kV according to patient size, and/or use of iterative reconstruction technique. COMMENT: There are no previous CT examinations available for comparison. There is some apical pleural thickening and pleural-based calcified granuloma on the right. There is a calcified node in the right hilum. There may be very small pleural fluid collections bilaterally. There are granulomata in the spleen. There is a small hiatal hernia. There is atherosclerotic calcification in the thoracic aorta and coronary arteries. There are calcified nodes in the prevascular and paratracheal regions. There is emphysematous change in both upper lung zones. There is mildly increased interstitial opacity dependently in both lower lobes. No dense consolidation is present. There are numerous small lucent lesions within the thoracic spine and also apparently in the ribs consistent with the patient's history of multiple myeloma. IMPRESSION: Dependent atelectasis versus mild interstitial pulmonary edema. COPD. Granulomatous changes and minimal pleural effusions. Hiatal hernia. Electronically signed by Oliver Nael 12/11/2018 7:06 AM
[2018-12-11 07:11] LABS: LYMPHS 5 % (21-51); MONO 6 % (1-9); SEGS 89 % (42-75)
[2018-12-11] MEDS: DUONEB (A & A) INH PRN ×4 (08:02→22:50)
--- NOTE | 2018-12-11 10:00 | PROGRESS NOTE ---
DATE: 12/11/2018 SUBJECTIVE: As per the patient, she is feeling better. She is answering all my questions properly. Her answers are slow though. She is complaining of generalized weakness, poor appetite as well. She has been having chills and she had a temperature of 101.1 degrees yesterday. Blood cultures so far negative. I asked for urine culture and sputum culture as well. She does have some infiltrates, mostly at the bases, and she has been covered with antibiotics, broad-spectrum. This patient has a history of multiple myeloma. I will consult her supply chain procurement manager/oncologist to evaluate this patient. She has some acute kidney injury on chronic kidney disease. She has been placed on IV fluids. I will continue with that for now, and I will monitor that closely. If the patient gets worse, likely I will need to get Nephrology Department on board. OBJECTIVE: Vital Signs: Temperature 98 degrees, pulse 75, respiratory rate 18, blood pressure 135/56, oxygen saturation 94% on room air. HEENT: Head normocephalic. No trauma. PERRLA. Mouth dry, mucous membranes are dry as well. Neck: Supple. No JVD. No masses. Central trachea. Chest: Decreased breath sounds globally with some crepitus at the basis. Coarse breath sounds at the bases as well. Abdomen: Soft, nontender, nondistended. No hepatosplenomegaly. Extremities: No edema. No clubbing. No cyanosis. Neurological: The patient is alert. She is oriented x3. She is answering my questions, but her answers are slow. She moves all 4 extremities, but she seems to be weak. LABORATORY: WBC 16.5, hemoglobin 8.5, hematocrit 27.3, platelets 154,000. Sodium 142, potassium 4.1, chloride 113, bicarbonate 17, BUN 17, creatinine 1.9, glucose 109, calcium 7.8. ASSESSMENT AND PLAN: 1. Pneumonia. Since this patient has been getting chemotherapy, likely this pneumonia can be categorized as a healthcare-associated pneumonia. I will continue with her cefepime and Zyvox. I have requested a urine culture and sputum culture as well. Blood culture has been negative so far. I will continue with the IV fluids and oxygen supplementation. Breathing treatment as needed. 2. Acute on chronic kidney disease. Continue with IV fluids, creatinine increased compared with yesterday. I will follow this closely. I will recheck that in the morning again. 3. History of multiple myeloma. As per the patient, she is on active treatment for that. I have requested an evaluation by Hematology/Oncology Department. 4. Hypertension, continue home medication. 5. Anemia of chronic disease. Stable. 6. History of COPD, not in exacerbation. 7. Tobacco use and abuse. This patient has been highly advised against tobacco use. I will continue with daily cessation education. cc: Randolph Avery MD
[2018-12-11] MEDS: NS 1,000 ML IV SCH ×2 (11:51→13:21)
[2018-12-11 12:57] LABS: URINE SOURCE CATH
[2018-12-11 13:03] LABS: BILIRUBIN URINE NEGATIVE (NEGATIVE); BLOOD URINE NEGATIVE (NEGATIVE); COLOR YELLOW; GLUCOSE URINE NEGATIVE (NEGATIVE); KETONE URINE NEGATIVE (NEGATIVE); LEUKOCYTES URINE NEGATIVE (NEGATIVE); NITRITE URINE NEGATIVE (NEGATIVE); PH URINE 5.5; PROTEIN URINE 30 mg/dL (NEGATIVE); SP GRAVITY URINE 1.016; TURBIDITY URINE CLEAR (CLEAR); UR EPITHELIAL CELLS <10 /HPF (<10); URINE BACTERIA NEGATIVE /HPF; URINE RBC <10 /HPF (<10); URINE WBC <10 /HPF (<10); UROBILINOGEN URINE NORMAL (NORMAL)
[2018-12-11] MEDS: MAXIPIME 1 GM in NS 50 ML IV SCH (13:21)
[2018-12-11] MEDS: BYSTOLIC PO SCH (14:30)
[2018-12-11] MEDS: TYLENOL PO PRN (14:50)
[2018-12-11] MEDS ORDERED: CALMOSEPTINE OINTMENT TOP PRN (16:56)
[2018-12-12] MEDS: MAXIPIME 1 GM in NS 50 ML IV SCH ×2 (00:10→11:11)
[2018-12-12] MEDS: ZYVOX 600 MG/D5W 600 MG/300 ML IVPB IV SCH ×2 (02:10→14:11)
[2018-12-12] MEDS: PROTONIX IV SCH (02:10)
[2018-12-12] MEDS: SODIUM CHLORIDE 0.9% INJ SCH (02:10)
[2018-12-12] MEDS: NS 1,000 ML IV SCH (02:10)
[2018-12-12] MEDS: LOVENOX SUBQ SCH (02:10)
[2018-12-12] MEDS: DUONEB (A & A) INH PRN ×4 (02:50→23:25)
[2018-12-12] MEDS: XANAX PO PRN (04:05)
[2018-12-12] MEDS ORDERED: LASIX IV ONE (04:41)
[2018-12-12 07:30] LABS: BASO# 0.01 X1000 (0.0-0.2); BASO% 0.1 % (0.0-0.8); HEMATOCRIT 29.2 % (37.0-47.0); HEMOGLOBIN 9.1 g/dL (12.0-16.0); IMM GRAN# 0.04 X1000 (0.0-0.04); IMM GRAN% 0.3 % (0.0-0.5); LYMPH# 0.94 X1000 (1.2-3.4); LYMPH% 7.2 % (20.5-51.1); MCH 32.4 PG (27-31); MCHC 31.2 g/dL (33-37); MCV 103.9 FL (81-99); MONO# 1.37 X1000 (0.11-0.59); MONO% 10.5 % (1.7-9.3); NEUT# 10.66 X1000 (1.4-6.5); NEUT% 81.9 % (42.2-75.2); PLT 130 X1000 (130-400); RBC 2.81 XMIL (4.2-5.4); RDW 14.2 % (11.5-14.5); WBC 13.02 X1000 (4.8-10.8)
[2018-12-12 07:46] LABS: CALCIUM 8.7 mg/dL (8.8-10.2); CREATININE 1.6 mg/dL (0.5-0.9); POTASSIUM 3.8 mmol/L (3.5-5.1)
[2018-12-12] MEDS: BYSTOLIC PO SCH (10:41)
[2018-12-12] MEDS: TYLENOL PO PRN ×2 (12:01→20:24)
[2018-12-12] MEDS ORDERED: APRESOLINE IV PRN (12:41)
[2018-12-12] MEDS ORDERED: NS 1,000 ML IV SCH (13:00)
[2018-12-12] MEDS: APRESOLINE PO SCH ×2 (14:11→21:17)
[2018-12-12] MEDS ORDERED: GAMUNEX-C 10% IV ONE (15:15)
--- NOTE | 2018-12-12 15:47 | PROGRESS NOTE ---
DATE: 12/12/2018 SUBJECTIVE: This patient is still complaining of shortness of breath and poor appetite. She had a temperature today of 100.3. Blood pressure has been elevated. I have placed this patient on hydralazine three times a day and Bystolic. Have stopped for now the enalapril and hydrochlorothiazide because of her acute on chronic kidney disease. I will get a new x-ray tomorrow morning. IgG is low at 16, I will give her IVIG. If this patient is still having some fever tomorrow or low grade fever, likely I will consult Infectious Disease Department to evaluate this patient. OBJECTIVE: Vital Signs: Temperature 100.3, pulse 91, respiratory rate 20, blood pressure 193/75. Oxygen saturation 98% on 3 L of nasal cannula. HEENT: Head normocephalic. No trauma. PERRLA. Neck: Supple. No JVD. Central trachea. Chest: Decreased breath sounds globally with some crepitus at the bases. Coarse breath sounds at the bases, as well. Abdomen: Soft, nontender, nondistended. No hepatosplenomegaly. Extremities: No edema. No clubbing. No cyanosis. Neurologic: The patient is alert and oriented x 3, but her answers are slow. LABORATORY: WBC 13, hemoglobin 9.1, hematocrit 29.2, platelets 130,000. Sodium 140, potassium 3.8, chloride 109, bicarbonate 19, BUN 18, creatinine 1.6, glucose 108, calcium 8.7. ASSESSMENT AND PLAN: 1. Pneumonia. Since this patient has been getting chemotherapy, likely the pneumonia can be categorized as a healthcare-associated pneumonia. I have placed this patient on cefepime and Zyvox. I have requested a sputum culture as well, which is pending. Blood culture has been negative so far. Actually, 1 out of 2 cultures showed coagulase-negative Staphylococcus, which is likely a contamination. We will continue with IV fluids, oxygen supplementation, breathing treatment as needed. 2. Acute on chronic kidney disease. Continue with IV fluids. Creatinine is getting better. We will monitor. 3. History of multiple myeloma. As per the patient, she is she is on active treatment for that. I have requested an evaluation by Hematology/Oncology Department. 4. Hypertension. Continue with same medication. 5. Anemia of chronic disease. Stable. 6. Hypogammaglobulinemia. I will give her some IVIG today. 7. History of COPD, not in exacerbation. 8. Tobacco use. This patient has been highly advised against tobacco use. I will continue with daily cessation education. 9. Hypertension. Has continued with Bystolic and I will add hydralazine to her medications. I have discontinued the enalapril and hydrochlorothiazide due to her kidney dysfunction. cc: Randolph Avery MD
--- NOTE | 2018-12-12 17:53 | HEMO/ONC CONSULTATION ---
DATE: 12/12/2018 ADMITTING PHYSICIAN: Dr. Roscoe Lees REQUESTING PHYSICIAN: Dr. Roscoe Lees. We appreciate this consult. CHIEF COMPLAINT: Multiple myeloma. HISTORY OF PRESENT ILLNESS: Ms. Vásquez is a 78-year-old female, well known to Dr. Gomez with a history of multiple myeloma. She has been on Kyprolis with her last dose being 12/10/2018. The patient's last SPEP revealed an M spike of 300. The patient has been stable; however, she was brought to the emergency department the day of admission with reports of 1 to 2 days of worsening confusion and fever with a mild cough. The day of admission, the patient had nausea and vomiting. Upon presentation to [facility] Emergency Department, the patient was found to have an elevated white blood cell count with a temperature of 101.1 degrees. Chest x-ray revealed pneumonia. The patient was admitted for evaluation and treatment. We are consulted as the patient is well known to us. PAST MEDICAL HISTORY: 1. One multiple myeloma. 2. Anemia of chronic disease. 3. Hypertension. 4. Iron-deficiency anemia. PAST SURGICAL HISTORY: 1. Cholecystectomy. 2. Hysterectomy. 3. Port-A-Cath placement. 4. Stent placement to leg secondary to peripheral vascular disease. SOCIAL HISTORY: The patient does not use tobacco, alcohol, or illicit drugs. FAMILY HISTORY: Negative for hematologic or oncologic problems. MEDICATIONS ON ADMISSION: 1. Alprazolam. 2. Amitriptyline. 3. Amlodipine. 4. Bystolic. 5. Calcium carbonate. 6. EMLA cream. 7. Enalapril/hydrochlorothiazide. 8. Lomotil. 9. Lyrica. 10. Omeprazole. ALLERGIES: The patient has no known drug allergies. REVIEW OF SYSTEMS: A 14 point review of systems was obtained and is negative except as mentioned in HPI. PHYSICAL EXAMINATION: General: Ms Vásquez is a very pleasant 78-year-old female, lying supine in bed, who appears extremely weak at this time. Vital Signs: Temperature 98.9, blood pressure 174/70, heart rate 83, respirations 16, O2 saturation 96% on 2 L nasal cannula O2. HEENT: Normocephalic, atraumatic. Mucous membranes pale and somewhat dry. Sclerae are anicteric. Extraocular movements intact. Neck: Supple. Lungs: With coarse breath sounds in the bases. Cardiovascular: S1, S2 heard. No murmurs, rubs or gallops. Abdomen: Nondistended. Extremities: No clubbing, cyanosis. The patient does have trace bilateral lower extremity edema. Dermatologic: No rashes, bruises, or lesions. Neurologic: The patient is somnolent. She is oriented x2. She has no focal motor deficit. LABORATORY DATA: Hemoglobin 9.1, hematocrit 29.2, white blood cell count is 13.02, platelets 136,000. ANC 10.66. Sodium 140, potassium 3.8, chloride 109, CO2 is 19, BUN 18, creatinine 1.6, glucose is 108, calcium is 8.7. ASSESSMENT AND PLAN: 1. Multiple myeloma currently on Kyprolis. Last dose is 12/10/2018. On last evaluation SPEP revealed an M spike of 300. 2. Community-acquired pneumonia. On Zyvox and cefepime per hospitalist. 3. Chronic kidney disease, stage 1, stable. On IV fluids at this time. Creatinine is 1.9. 4. Anemia, secondary to #1. Hemoglobin is 8.5. Would continue to monitor. The patient's last Aranesp was given on 12/10/2018. If hemoglobin drops below 8.0, would transfuse 1 unit packed red blood cells. 5. Hypertension. Blood pressure 135/56. Would continue current antihypertensives. We will follow along with you and make further recommendations pending outcomes. The above reflects the history, exam, assessment, and plan of Dr. Gomez. Dictated by MELISSA Tsai for Melvin Gomez MD cc: MELISSA Tsai MD
[2018-12-13] MEDS: MAXIPIME 1 GM in NS 50 ML IV SCH ×3 (00:55→23:17)
[2018-12-13] MEDS: XANAX PO PRN ×2 (02:51→20:45)
[2018-12-13] MEDS: APRESOLINE PO SCH ×4 (02:52→20:40)
[2018-12-13] MEDS: ZYVOX 600 MG/D5W 600 MG/300 ML IVPB IV SCH ×3 (02:52→23:53)
[2018-12-13] MEDS: PROTONIX IV SCH ×2 (02:53→23:53)
[2018-12-13] MEDS: LOVENOX SUBQ SCH (02:53)
[2018-12-13] MEDS: SODIUM CHLORIDE 0.9% INJ SCH ×2 (02:53→23:53)
[2018-12-13] MEDS: DUONEB (A & A) INH PRN ×3 (03:45→16:02)
[2018-12-13 06:45] LABS: EOS# 0.01 X1000 (0.0-0.7); EOS% 0.1 % (0.0-10.0); HEMATOCRIT 27.6 % (37.0-47.0); HEMOGLOBIN 8.8 g/dL (12.0-16.0); IMM GRAN# 0.04 X1000 (0.0-0.04); IMM GRAN% 0.4 % (0.0-0.5); LYMPH# 0.93 X1000 (1.2-3.4); LYMPH% 9.3 % (20.5-51.1); MCH 32.5 PG (27-31); MCHC 31.9 g/dL (33-37); MCV 101.8 FL (81-99); MONO# 1.68 X1000 (0.11-0.59); MONO% 16.8 % (1.7-9.3); NEUT# 7.36 X1000 (1.4-6.5); NEUT% 73.4 % (42.2-75.2); PLT 105 X1000 (130-400); RBC 2.71 XMIL (4.2-5.4); WBC 10.02 X1000 (4.8-10.8)
[2018-12-13 07:01] LABS: CALCIUM 8.2 mg/dL (8.8-10.2); CREATININE 1.2 mg/dL (0.5-0.9); POTASSIUM 3.6 mmol/L (3.5-5.1)
--- NOTE | 2018-12-13 07:19 | Diag Imaging Result Doc PS360 ---
EXAM: CHEST-PORTABLE 12/13/2018 HISTORY: dyspnea TECHNIQUE: AP portable at 0601 COMMENT: There is alveolar opacity in the left costophrenic sulcus which was not present on 12/10/2018. There is generalized increased interstitial opacity which has clearly worsened in the right upper lobe. IMPRESSION: Worsened atelectasis versus pneumonia in the lung bases and pulmonary edema. Electronically signed by Oliver Neal 12/13/2018 7:16 AM
[2018-12-13] MEDS: TYLENOL PO PRN ×3 (10:23→23:16)
[2018-12-13] MEDS: LEVAQUIN 500 MG/D5W 500 MG/100 ML IVPB IV SCH (10:23)
[2018-12-13] MEDS: BYSTOLIC PO SCH (10:23)
[2018-12-13] MEDS ORDERED: LASIX IV ONE (10:42)
--- NOTE | 2018-12-13 18:02 | PROGRESS NOTE ---
DATE: 12/13/2018 SUBJECTIVE: As per the patient she is feeling a little bit better but she is still complaining of shortness of breath and poor appetite. Today I do not have any records of fever but the temperature has been around 98 and 99. Yesterday though she had some episodes of low-grade fever. Chest x-ray showed pneumonia in the lung bases and pulmonary edema, I have stopped the IV fluids and I gave her a dose of Lasix, I encouraged the patient to eat and I advanced the diet. Her kidney function looks a bit better. Likely this is her baseline. WBC decreased to 10, she has been coughing up green phlegm. OBJECTIVE: Vital Signs: Temperature 99.2 degrees, pulse 77, respiratory rate 22, blood pressure 165/72, oxygen saturation 98 on 2 L of nasal cannula. HEENT: Head normocephalic. No trauma. PERRLA. Neck: Supple. No JVD. No masses. Central trachea. Chest: Decreased breath sounds globally with crepitus at the bases, coarse breath sounds at the bases as well. Abdomen: Soft, nontender, nondistended. No hepatosplenomegaly. Extremities: No edema. No clubbing. No cyanosis. Neurological: The patient is alert and oriented x3 but her answers are slow but better compared with admission. LABORATORY: WBC 10, hemoglobin 8.8, hematocrit 27.6, platelets 105,000. Sodium 139, potassium 3.6, chloride 110, bicarbonate 16, BUN 17, creatinine 1.2, glucose 99, calcium 8.2. ASSESSMENT AND PLAN: 1. Pneumonia, likely healthcare associated pneumonia since this patient is getting chemotherapy, continue with cefepime and Zyvox and I have placed this patient also on levofloxacin. Blood culture negative so far, it showed coagulase-negative Staphylococcus which is likely a contaminant. 2. Acute on chronic kidney disease. I have stopped the IV fluids. Kidney function back to her baseline, creatinine is better. 3. History of multiple myeloma. As per the patient, she has been on active treatment for that. Hematology/Oncology on board. 4. Hypertension. Continue with the same management for now. 5. Anemia of chronic disease. Stable. 6. Hypogammaglobulinemia, this patient received already intravenous immunoglobulin. 7. History of chronic obstructive pulmonary disease not in exacerbation. 8. Pulmonary edema, this patient will receive a dose of Lasix, I have stopped the intravenous fluids. 9. Tobacco abuse. This patient has been highly advised against tobacco use. I will continue with daily cessation education. cc: Randolph Avery MD
[2018-12-14] MEDS: PROTONIX IV SCH ×2 (00:36→23:43)
[2018-12-14] MEDS: ZYVOX 600 MG/D5W 600 MG/300 ML IVPB IV SCH ×3 (00:37→23:43)
[2018-12-14] MEDS: LOVENOX SUBQ SCH (04:13)
[2018-12-14] MEDS: APRESOLINE PO SCH ×3 (04:13→20:11)
[2018-12-14] MEDS: TYLENOL PO PRN ×3 (04:17→23:08)
--- NOTE | 2018-12-14 06:53 | Diag Imaging Result Doc PS360 ---
EXAM: CHEST-PORTABLE HISTORY: dyspnea TECHNIQUE: Portable chest single view COMPARISON: 12/13/2018 FINDINGS: Improved inspiratory effort. Infiltrates and pulmonary edema are less pronounced. Heart remains mildly enlarged. Decrease in size of the left pleural effusion. No change in the right jugular portacatheter. IMPRESSION: Interval improvement. Electronically signed by Levi Pretty 12/14/2018 6:51 AM
[2018-12-14 07:00] LABS: BASO# 0.01 X1000 (0.0-0.2); BASO% 0.2 % (0.0-0.8); EOS# 0.15 X1000 (0.0-0.7); EOS% 2.4 % (0.0-10.0); HEMATOCRIT 28.2 % (37.0-47.0); IMM GRAN# 0.03 X1000 (0.0-0.04); IMM GRAN% 0.5 % (0.0-0.5); LYMPH# 0.89 X1000 (1.2-3.4); LYMPH% 14.3 % (20.5-51.1); MCH 32.3 PG (27-31); MCHC 31.9 g/dL (33-37); MCV 101.1 FL (81-99); MONO# 0.71 X1000 (0.11-0.59); MONO% 11.4 % (1.7-9.3); MPV 12.9 FL (7.4-10.4); NEUT# 4.44 X1000 (1.4-6.5); NEUT% 71.2 % (42.2-75.2); PLT 98 X1000 (130-400); RBC 2.79 XMIL (4.2-5.4); WBC 6.23 X1000 (4.8-10.8)
[2018-12-14 07:21] LABS: CALCIUM 8.1 mg/dL (8.8-10.2); CREATININE 1.4 mg/dL (0.5-0.9); POTASSIUM 3.4 mmol/L (3.5-5.1)
[2018-12-14] MEDS ORDERED: KLOR-CON PO ONE (08:27)
[2018-12-14] MEDS ORDERED: NORVASC PO SCH (09:00)
[2018-12-14] MEDS: LEVAQUIN 500 MG/D5W 500 MG/100 ML IVPB IV SCH (09:50)
[2018-12-14] MEDS: BYSTOLIC PO SCH (09:50)
[2018-12-14] MEDS: DUONEB (A & A) INH PRN ×2 (12:08→15:39)
--- NOTE | 2018-12-14 12:21 | PROGRESS NOTE ---
DATE: 12/14/2018 SUBJECTIVE: This patient is feeling better; she is still weak, though. Creatinine has been stable. She is breathing better. She is eating a little bit better. The potassium is low and I will replace it. I will add a blood pressure medication for this patient; her blood pressure has been around 160s. OBJECTIVE: Vital Signs: Temperature 97.6 degrees, pulse 80, respiratory rate 16, blood pressure 166/74, oxygen saturation 92 on 2 L of nasal cannula. HEENT: Head normocephalic. No trauma. PERRLA. Neck: Supple. No JVD. No masses. Central trachea. Chest: Decreased breath sounds globally with crepitus at the bases. Coarse breath sounds at the bases as well. Abdomen: Soft, nontender, nondistended. No hepatosplenomegaly. Extremities: No edema. No clubbing. No cyanosis. Neurological examination: The patient is alert and oriented x3. No focal deficits, but generalized weakness. LABORATORY: WBC 6.2, hemoglobin 9, hematocrit 28.2, platelet 98. Sodium 134, potassium 3.4, chloride 105, bicarbonate 18. BUN 15, creatinine 1.4, glucose 91, calcium 8.1. ASSESSMENT AND PLAN: 1. Pneumonia, likely healthcare-associated pneumonia. Since this patient is getting chemotherapy, continue with cefepime and Zyvox and levofloxacin. Blood culture negative so far. 2. Acute on chronic kidney disease. Likely this is her baseline now. We will continue to monitor. 3. History of multiple myeloma. As per the patient, she has been on active treatment for that. Hematology/oncology on board. 4. Hypertension. I will continue with the same management for now, but I will add a new blood pressure medication. 5. Hypogammaglobulinemia. This patient already received IVIG. Will monitor. 6. History of chronic obstructive pulmonary disease, not in exacerbation. 7. Pulmonary edema. This patient received a dose of Lasix yesterday. X-ray looks better. She has no complaint of shortness of breath today. Will monitor. 8. Tobacco abuse. This patient has been highly advised against tobacco use. I will continue with daily cessation education. 9. Hypokalemia. I will replace the potassium. cc: Randolph Avery MD
[2018-12-14] MEDS: MAXIPIME 1 GM in NS 50 ML IV SCH ×2 (12:25→23:02)
[2018-12-14] MEDS: XANAX PO PRN (16:34)
[2018-12-14] MEDS: SODIUM CHLORIDE 0.9% INJ SCH (23:43)
[2018-12-15] MEDS: PROTONIX IV SCH ×2 (00:59→23:34)
[2018-12-15] MEDS: ZYVOX 600 MG/D5W 600 MG/300 ML IVPB IV SCH (00:59)
[2018-12-15] MEDS: XANAX PO PRN ×2 (02:00→20:32)
[2018-12-15] MEDS: APRESOLINE PO SCH ×3 (04:42→20:30)
[2018-12-15] MEDS: LOVENOX SUBQ SCH (04:42)
[2018-12-15 08:10] LABS: CREATININE 1.3 mg/dL (0.5-0.9); POTASSIUM 3.8 mmol/L (3.5-5.1)
[2018-12-15] MEDS: BYSTOLIC PO SCH (08:55)
[2018-12-15] MEDS: NORVASC PO SCH (08:57)
--- NOTE | 2018-12-15 09:31 | Diag Imaging Result Doc PS360 ---
EXAM: CHEST-PORTABLE - 12/15/2018 HISTORY: dyspnea TECHNIQUE: Portable chest COMPARISON: 12/14/2015 FINDINGS: Central venous catheter remains in place. There is stable mild thyromegaly. There is questionable increased consolidation at the lateral right lower lung versus artifact of soft tissue overlap. There has been mild decrease in infiltrate/edema at the left base. There is no large pleural effusion or pneumothorax identified. IMPRESSION: Questionable increased consolidation at lateral right lower lung versus artifact of tissue at left. Mild decrease in infiltrate/edema at left base. Electronically signed by Tomi Perez 12/15/2018 9:29 AM
--- NOTE | 2018-12-15 10:23 | INFECTIOUS DISEASE CONSULT REP ---
DATE: 12/15/2018 CONCLUSION: 1. The patient is admitted to the hospital. 2. She has a pneumonia. On my review of the last 2 x-rays, the pneumonia appears to me to be only on the right side. The infiltrate appears to be getting better. 3. Patient said today that she is having diarrhea which may be due to Clostridium difficile since she is getting IV antibiotics. 4. The patient has 1 of 2 blood cultures growing coagulase-negative Staphylococcus. This is a contaminant. RECOMMENDATION: The patient currently is receiving Zyvox, cefepime, and Levaquin, and as mentioned above, the x-ray is getting better; however, the platelet count is decreasing, and most likely this is secondary to Zyvox so I am going to discontinue Zyvox. Vancomycin would be a possibility to start in order to provide coverage for possible methicillin- resistant Staphylococcus aureus; however, the patient is elderly and her creatinine is slightly elevated, and therefore I do not want to use vancomycin. What I am going to do is to put the patient on ceftaroline which will provide coverage for methicillin-resistant Staphylococcus aureus and for gram-negative pathogens also. Because of that, I will be able to stop not only Zyvox but cefepime, and also I am going to discontinue Levaquin. The patient is noted to be getting immunoglobulin therapy because of a low immunoglobulin level. I will plan to check the patient's immunoglobulin levels in the hospital just to make sure that the IgG level is in the normal range. I am going to get a Clostridium difficile toxin and antigen on the stool. Because the coagulase-negative Staphylococcus isolated in 1 blood culture is a contaminant, it does not require antibiotic treatment. DISCUSSION: The patient tells me approximately 5 days ago she began coughing. She also had sputum which was yellow in color. She has had a couple of episodes of vomiting. In the past 2 days, she had some pain in the left abdomen. She has also had diarrhea. Patient also says that in the past 2 days she has been having generalized joint pain and myalgias. DIAGNOSTIC STUDIES: The patient's laboratory studies and radiographic studies so far show CBC with a white count of 6230, hemoglobin 9, platelet count 98,000. Creatinine is 1.3, GFR is 48. One out of 2 blood cultures is growing coagulase-negative Staphylococcus. This is a contaminant and does not require treatment. PAST MEDICAL HISTORY/REVIEW OF SYSTEMS: Eyes and ears: The patient states she can hear and see okay. Neck: No stiffness. Respiratory: See Present Illness. Gastrointestinal: See Present Illness. Genitourinary: No dysuria or flank pain. Bones, joints, muscle: See Present Illness. Endocrine: Patient does not have diabetes or thyroid disease. Integumentary: Patient does not have any rashes. Obstetrical/Gynecological: She is a 5, para 4, AB1. She delivered 1 of her children by . She has had a hysterectomy. PREVIOUS HOSPITALIZATIONS AND: Operations she has had labor and deliveries, a C -section, and a hysterectomy. She has also had placement in her left leg and she has had a kyphoplasty of her spine. She once was admitted the hospital with influenza. MEDICAL DISEASES: Positive for hypertension, multiple myeloma, and COPD. INFECTIOUS DISEASE HISTORY: Positive for UTI. FAMILY HISTORY: Positive for hypertension and cancer. SOCIAL HISTORY: [place] She is a and she lives alone. She does not have any pets. She smoked cigarettes in the past, but none recently. She rarely drinks alcoholic beverages. She said it is less than 1 beer a month. She does not abuse drugs. ALLERGIES: Her chart lists no known drug allergies. HOME MEDICATIONS: Include Xanax, Lomotil, enalapril/hydrochlorothiazide, hydrocodone, and Bystolic. PHYSICAL EXAMINATION: Vital Signs: Temperature is 98.4 degrees, pulse 78, respirations 16, blood pressure 178/64. Weight: The patient weighs 138 pounds. General: This is a somewhat ill- appearing elderly female. She is in no acute distress. Head, eyes, ears, nose , and throat: She can hear my spoken words and see near objects. She does not have any white patches on her oral mucosa. Neck: No stiffness. Lungs: Clear to auscultation. Cardiovascular: Heart rate is regular. Abdomen: Soft and nontender. Neurologic: Patient is alert. She can move her extremities. There is no tremor. Her sensation is intact to touch. Her memory as regarding her medical history was good. Integument: No rash noted. Thank you for the consult. cc: Chuck Foster MD MTDD
[2018-12-15] MEDS: DUONEB (A & A) INH PRN ×2 (10:44→16:55)
[2018-12-15] MEDS: TEFLARO 600 MG in NS 250 ML IV SCH ×2 (10:54→23:34)
--- NOTE | 2018-12-15 14:26 | PROGRESS NOTE ---
DATE: 12/15/2018 SUBJECTIVE: Patient is feeling better. She is still feeling weak. Infectious Disease Department has evaluated this patient. They have stopped the previous antibiotics and put this patient on ceftaroline. Like I said, this patient is feeling better. OBJECTIVE: Vital Signs: Temperature 98.5, pulse 85, respiratory rate 20, blood pressure 144/58, oxygen saturation 100% on room air. HEENT: Head normocephalic. No trauma. PERRLA. Neck: Supple. No JVD. No masses. Central trachea. Chest: Decreased breath sounds globally with crepitus at the bases. Coarse breath sounds at the bases, as well. Abdomen: Soft, nontender, nondistended. No hepatosplenomegaly. Extremities: No edema. No clubbing. No cyanosis. Neurologic: The patient is alert and oriented x 3. No focal deficits, but generalized weakness. LABORATORY: Sodium 137, potassium 3.8, chloride 109, bicarbonate 19, BUN 13, creatinine 1.3, glucose 81, calcium 8. ASSESSMENT AND PLAN: 1. Pneumonia, likely healthcare-associated pneumonia. Since this patient is getting chemotherapy, continue with ceftaroline as recommended by Infectious Disease Department. 2. Acute on chronic kidney disease. Likely this is her baseline. Continue to monitor. 3. History of multiple myeloma. As per the patient, she has been on active treatment for that. Hematology/Oncology on board. 4. Hypertension. Continue with same management. I have increased the dose of the amlodipine since the blood pressure has been a little bit elevated. 5. Hypogammaglobulinemia. We will recheck the gammaglobulin. 6. History of COPD, not in exacerbation. 7. Pulmonary edema. Continue with same management. 8. Tobacco abuse. This patient has been highly advised against tobacco use. I will continue with daily cessation education. 9. Hypokalemia, resolved. cc: Randolph Aveyr MD
[2018-12-15] MEDS: TYLENOL PO PRN (20:32)
[2018-12-15] MEDS: SODIUM CHLORIDE 0.9% INJ SCH (23:34)
[2018-12-16] MEDS: PROTONIX IV SCH (00:34)
[2018-12-16] MEDS: TYLENOL PO PRN ×2 (04:32→19:30)
[2018-12-16] MEDS: LOVENOX SUBQ SCH (04:32)
[2018-12-16] MEDS: APRESOLINE PO SCH ×3 (04:32→22:05)
[2018-12-16 07:02] LABS: CALCIUM 8.3 mg/dL (8.8-10.2); CREATININE 1.3 mg/dL (0.5-0.9); POTASSIUM 4.4 mmol/L (3.5-5.1)
[2018-12-16 07:25] LABS: BASO# 0.01 X1000 (0.0-0.2); BASO% 0.2 % (0.0-0.8); EOS% 4.7 % (0.0-10.0); HEMATOCRIT 27.7 % (37.0-47.0); HEMOGLOBIN 8.8 g/dL (12.0-16.0); LYMPH# 0.68 X1000 (1.2-3.4); LYMPH% 15.9 % (20.5-51.1); MCH 32.8 PG (27-31); MCHC 31.8 g/dL (33-37); MCV 103.4 FL (81-99); MONO# 0.75 X1000 (0.11-0.59); MONO% 17.6 % (1.7-9.3); MPV 12.8 FL (7.4-10.4); NEUT# 2.63 X1000 (1.4-6.5); NEUT% 61.6 % (42.2-75.2); PLT 89 X1000 (130-400); RBC 2.68 XMIL (4.2-5.4); RDW 14.4 % (11.5-14.5); WBC 4.27 X1000 (4.8-10.8)
[2018-12-16] MEDS: NORVASC PO SCH (10:02)
[2018-12-16] MEDS: BYSTOLIC PO SCH (10:02)
[2018-12-16] MEDS: DUONEB (A & A) INH PRN ×2 (11:03→15:19)
[2018-12-16] MEDS: TEFLARO 600 MG in NS 250 ML IV SCH (14:54)
--- NOTE | 2018-12-16 15:40 | PROGRESS NOTE ---
DATE: 12/16/2018 SUBJECTIVE: This patient is feeling better. She is still weak. Infectious Disease Department on board. Pending immunoglobulin levels. Continue with antibiotics, I have requested an evaluation by respiratory therapy to see if this patient needs home O2. OBJECTIVE: Vital Signs: Temperature 98.4 degrees, pulse 65, respiratory rate 18, blood pressure 142/44, oxygen saturation 100% on 2 L of nasal cannula. HEENT: Head normocephalic. No trauma. PERRLA. Neck: Supple. No JVD. No masses. Central trachea. Chest: Decreased breath sounds globally with crepitus at the basis, some coarse breath sounds at the bases as well. Abdomen: Soft, nontender, nondistended. No hepatosplenomegaly. Extremities: No edema, no clubbing, no cyanosis. Neurological: The patient is alert and oriented x3. No focal deficits but generalized weakness. LABORATORY: WBC 4.2, hemoglobin 8.8, hematocrit 27.7, platelets 89,000, sodium 141, potassium 4.4, chloride 114, bicarbonate 18, BUN 12, creatinine 1.3, glucose 85, calcium 8.3. ASSESSMENT AND PLAN: 1. Pneumonia likely healthcare associated pneumonia. This patient is getting chemotherapy, continue with ceftaroline as recommended by Infectious Disease Department. 2. Acute on chronic kidney disease, likely this is her baseline, continue to monitor. 3. History of multiple myeloma. As per the patient, she has been on active treatment for that, hematology/oncology on board. 4. Hypertension. Continue with same management. I have increased the dose of amlodipine a little bit, blood pressure has been a little bit more stable. 5. Hypogammaglobulinemia, she already received a dose of intravenous immunoglobulin, pending new results. 6. History of chronic obstructive pulmonary disease not in exacerbation. 7. Pulmonary edema, continue with same management. 8. Tobacco abuse. This patient has been highly advised against tobacco use. I will continue with daily cessation education. 9. Hypokalemia resolved. 10. Generalized weakness and physical deconditioning, continue with physical therapy, as per the patient she does not want to go to a rehab center. She wants to go home. cc: Randolph Avery MD
[2018-12-17] MEDS: TEFLARO 600 MG in NS 250 ML IV SCH ×2 (00:25→11:56)
--- NOTE | 2018-12-17 03:24 | INFECTIOUS DISEASE PROGRESS NO ---
DATE: 12/16/2018 PRESENT ILLNESS: The patient is being treated for a right lung pneumonia. Clinically, she seems to be getting better. MEDICATIONS: The patient is receiving ceftaroline as a single antibiotic. PHYSICAL EXAMINATION: Vital Signs: Temperature is 98.2 degrees, pulse 60, respirations 20, blood pressure 140/60. General: This is a somewhat ill-appearing, elderly female. She is in no acute distress. Head, Eyes, Ears, Nose, and Throat: She can hear my spoken words and see near objects. She does not have any white coating on her tongue. Neck is not stiff. Lungs: Clear to auscultation. Cardiovascular: Heart rate is regular. Abdomen: Soft and nontender. Neurologic: The patient is awake. She can move her extremities. There is no tremor. LAB AND X-RAY: There is no new radiographic study for today. The CBC shows a white count of 4270, hemoglobin is 4.27, platelet count 89,000. Creatinine is 1.3. GFR is 48. Stool for Clostridium difficile toxin and antigen is negative. ASSESSMENT AND PLAN: Patient has pneumonia. My plan is to continue ceftaroline. COMORBIDITIES: She is elderly. 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 The patient also has COPD. cc: Chuck Foster MD
[2018-12-17] MEDS: PROTONIX IV SCH (03:32)
[2018-12-17] MEDS: SODIUM CHLORIDE 0.9% INJ SCH (03:32)
[2018-12-17] MEDS: LOVENOX SUBQ SCH (05:23)
[2018-12-17] MEDS: APRESOLINE PO SCH ×3 (05:23→20:24)
[2018-12-17] MEDS: TYLENOL PO PRN (05:23)
[2018-12-17 07:32] LABS: CALCIUM 7.6 mg/dL (8.8-10.2); CREATININE 1.2 mg/dL (0.5-0.9); POTASSIUM 4.4 mmol/L (3.5-5.1)
[2018-12-17 07:54] LABS: BASO# 0.01 X1000 (0.0-0.2); BASO% 0.2 % (0.0-0.8); EOS% 3.2 % (0.0-10.0); HEMATOCRIT 27.8 % (37.0-47.0); HEMOGLOBIN 8.9 g/dL (12.0-16.0); LYMPH# 0.65 X1000 (1.2-3.4); LYMPH% 10.5 % (20.5-51.1); MCH 32.7 PG (27-31); MCV 102.2 FL (81-99); MONO# 1.34 X1000 (0.11-0.59); MONO% 21.6 % (1.7-9.3); MPV 12.9 FL (7.4-10.4); NEUT% 64.5 % (42.2-75.2); PLT 94 X1000 (130-400); RBC 2.72 XMIL (4.2-5.4); RDW 14.2 % (11.5-14.5)
[2018-12-17 08:22] LABS: BANDS 4 % (0-1); EOS 5 % (1-10); LYMPHS 6 % (21-51); MONO 18 % (1-9); NRBC 1 % (0-0); SEGS 67 % (42-75)
[2018-12-17] MEDS: BYSTOLIC PO SCH (08:31)
[2018-12-17] MEDS: NORVASC PO SCH (08:31)
--- NOTE | 2018-12-17 12:39 | PROGRESS NOTE ---
DATE: 12/17/2018 SUBJECTIVE: Ms. Vásquez is a patient of Dr. Mauricio Vincent in [place] and followed by Dr. Melvin Gomez, her forming machine upkeep mechanic helper/oncologist. The patient came in with fever and altered mental status on 12/11/2018, a chronically ill-looking 78-year-old female with history of multiple myeloma under active treatment, brought to the emergency room because for the last 24 48 hours was confused with fever. She had had multiple myeloma chemotherapy that day, usually takes chemotherapy 2 times a week, 3 out of 4 weeks in the month. She started developing a fever and cough. She was feeling nauseated and vomiting. PAST MEDICAL HISTORY: 1. Multiple myeloma. 2. Anemia of chronic disease. 3. Hypertension. 4. Iron deficiency anemia. SURGICAL HISTORY: 1. Status post cholecystectomy. 2. Status post hysterectomy. 3. She has a port Port-A-Cath placed to the right side of the chest. 4. Peripheral vascular disease. OBJECTIVE: General: So, admitted with community-acquired pneumonia and underlying multiple myeloma. She reports she is doing better. Her daughter reports she seems to be doing better. Vital signs: Remains afebrile with temperature 98.9 degrees, pulse 70, respirations 23, blood pressure 151/66. Eyes: Pupils are equal and round. Lungs: Clear in all lung bravo. Cardiovascular: Regular rhythm and rate without murmur or S3. Abdomen: Soft. Skin: Warm and dry. LABORATORY DATA: Lab reviewed from yesterday: White count 6200, hematocrit was 27, hemoglobin 8.9, platelet count 94,000. Sodium 138, potassium 4.4, chloride 111, BUN 11, creatinine 1.2. ASSESSMENT AND PLAN: 1. Patient being treated with right lung pneumonia. Clinically seems to be improving and receiving ceftaroline, single antibiotic, and seems to be effective. 2. Acute on chronic kidney disease which is improving. 3. Multiple myeloma. She has been on active treatment for that. Hematology/Oncology on board. 4. Hypertension. We have increased her amlodipine, and blood pressure seems to be doing better. 5. Hypogammaglobinemia with underlying multiple myeloma. Received a dose of intravenous immunoglobulin and pending results. 6. History of chronic obstructive pulmonary disease (COPD). 7. Pulmonary edema. Continue same management. This is improving. 8. Tobacco use. Of course, we encourage her for tobacco cessation. 9. Hypokalemia, resolved. 10. General weakness and deconditioning. Continue physical therapy. 11. Review of her orders: Getting Apresoline 25 mg q.8 h., Xanax 0.5 mg q.6 h., Norvasc 10 mg a day, ceftaroline 600 mg q.12 h., Protonix 40 mg IV q.24 h. cc: Kapil Guzman MD
[2018-12-17] MEDS ORDERED: GAMUNEX-C 10% IV ONE (17:00)
--- NOTE | 2018-12-17 18:39 | INFECTIOUS DISEASE PROGRESS NO ---
DATE: 12/17/2018 PRESENT ILLNESS: Ms Vásquez is being treated for right-sided pneumonia. 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 MEDICATIONS: She is on day 2 of ceftaroline 600 mg IV every 12 hours. PHYSICAL EXAMINATION: Vital Signs: Temperature is 99.4 degrees, pulse rate 70 , respiratory rate 21, blood pressure 154/63, O2 saturation is 98% on room air. General: This is a chronically ill-appearing elderly female. She is lying in bed, currently in no acute distress. HEENT: Atraumatic, normocephalic. Oral mucous membranes are pink and dry. Conjunctivae are pale. Neck: Supple. Trachea is midline. Cardiovascular: Heart rate is regular. Pedal and radial pulses are palpable bilaterally. Respiratory: Lung sounds are diminished bilaterally. Abdomen: Soft, round, mildly tender on palpation, bowel sounds are active. Neurologic: She is awake, alert and oriented. Able to move around independently in the bed. LABORATORY AND X-RAY: Today her white count is 6.2, hemoglobin 8.9, platelet count 94,000, creatinine is 1.2, GFR 53, IgA is 317, IgG 437, IgM less than 5. No imaging reports today. ASSESSMENT AND PLAN: Ms. Vásquez has pneumonia as well as an IgG deficiency. For now we will continue ceftaroline as ordered and we will also order one dose of IVIG 20 gm x1. Ms Vásquez is a patient of Dr. Gomez for her multiple myeloma. Upon discharge, he will follow her need for any continual IVIG replacement. These plans have been discussed with and recommended by Dr. Foster. COMORBIDITIES: Include multiple myeloma, anemia of chronic disease, COPD and immunoglobulin deficiency. Dictated by MELISSA Aguilar for Chuck Foster MD This chart was documented by, MELISSA Aguilar and accurately reflects the services performed, treatment plan and medical decisions as attested by the providers signature Chuck Foster MD. cc: Chuck Foster MD [facility]
[2018-12-18] MEDS: PROTONIX IV SCH (01:03)
[2018-12-18] MEDS: SODIUM CHLORIDE 0.9% INJ SCH (01:03)
[2018-12-18] MEDS: TEFLARO 600 MG in NS 250 ML IV SCH ×3 (01:03→22:18)
[2018-12-18] MEDS: TYLENOL PO PRN (01:57)
[2018-12-18] MEDS: LOVENOX SUBQ SCH (05:53)
[2018-12-18] MEDS: APRESOLINE PO SCH ×3 (05:53→22:18)
[2018-12-18] MEDS: BYSTOLIC PO SCH (08:15)
[2018-12-18] MEDS: NORVASC PO SCH (08:15)
--- NOTE | 2018-12-18 10:00 | Diag Imaging Result Doc PS360 ---
EXAM: CHEST-PORTABLE 12/18/2018 HISTORY: pneumonia TECHNIQUE: AP portable at 0948 COMMENT: There is some hazy opacity in lung bases consistent with pulmonary edema. This was also present on 12/15/2018. There has been no appreciable change since 01/11/2019. IMPRESSION: Pulmonary edema plus minus pneumonia. Electronically signed by Oliver Neal 12/18/2018 9:58 AM
--- NOTE | 2018-12-18 10:02 | PROGRESS NOTE ---
DATE: 12/18/2018 OBJECTIVE: Vitals: Temperature is 98.6 degrees. Remains afebrile. Pulse 68, respirations 16, blood pressure 156/54. General: She is awake, alert, pleasant. Lungs: Clear anterolateral and posterior. Cardiovascular: Regular rhythm and rate without murmur or S3. Abdomen: Soft. Skin: Warm and dry. Extremities: No pedal edema. ASSESSMENT AND PLAN: 1. Treating for right lung pneumonia. Clinically improved, doing much better. She is receiving ceftaroline. 2. Acute on chronic kidney disease, which is improving. Her creatinine is down to 1.2 and stable. 3. Hypogammaglobulinemia. Underlying myeloma. Has received some intravenous immunoglobulin. We are talking about maybe going home tomorrow. 4. History of chronic obstructive pulmonary disease. 5. Pulmonary edema, which is improved. 6. Tobacco use. Encourage tobacco cessation. 7. Hypokalemia, which has been supplemented. 8. General weakness, deconditioning. Continue physical therapy. Hoping she can go home tomorrow with home health. cc: Kapil Guzman MD
--- NOTE | 2018-12-18 14:21 | INFECTIOUS DISEASE PROGRESS NO ---
DATE: 12/18/2018 PRESENT ILLNESS: Ms. Vásquez is being treated for a right-sided pneumonia and also has a selective IgG immunoglobulin deficiency. MEDICATIONS: Today is day 3 of ceftaroline 600 mg IV every 12 hours. PHYSICAL EXAMINATION: Vital Signs: Temperature is 98.6 degrees, pulse rate 68 , respiratory rate 16, blood pressure 154/54, O2 saturation is 96% on room air. General: This is a chronically ill- appearing, elderly female. She is lying in the bed, currently in no acute distress. HEENT: Atraumatic, normocephalic. Oral mucous membranes are pink and dry. Conjunctivae are pale. Neck: Supple. Trachea is midline. Respiratory: Lung sounds are clear in the upper lobes, diminished in the bases. Cardiovascular: Heart rate and rhythm are regular. Normal sinus rhythm on the monitor. Pedal and radial pulses are palpable bilaterally, +1. Abdomen: Soft , round, and mildly tender on palpation. Bowel sounds are active. Neurologic: She is drowsy and lethargic but arousable and oriented. Able to move around independently in the bed. LABORATORY AND X-RAY: No lab work today but she did have a chest x-ray which shows pulmonary edema plus or minus pneumonia. ASSESSMENT AND PLAN: Ms. Vásquez is being treated for pneumonia, using ceftaroline which we will continue as long she is in the hospital. There has been some mention of her possibly going home tomorrow, so we have printed up prescriptions for her to take at home which include doxycycline 100 mg by mouth every 12 hours and Ceftin 500 mg by mouth every 12 hours, each of these for 2 weeks. After she is done with these medications we will see her in the office, and have already set up an appointment for her to come in the following Sunday after her medications are complete. She also has an IgG immunoglobulin deficiency which should be followed up by Dr. Gomez since he is following her multiple myeloma. She did get one treatment of IVIG last night. These plans have been discussed with and recommended by Dr. Foster. COMORBIDITIES: For Ms. Vásquez include multiple myeloma, anemia of chronic disease, cigarette smoking with COPD, and immunoglobulin deficiency. Dictated by MELISSA Aguilar for Chuck Foster MD This chart was documented by, MELISSA Aguilar and accurately reflects the services performed, treatment plan and medical decisions as attested by the providers signature Chuck Foster MD. cc: Chuck Foster MD [facility]
[2018-12-19] MEDS: LOVENOX SUBQ SCH (06:04)
[2018-12-19] MEDS: PROTONIX IV SCH (06:04)
[2018-12-19] MEDS: APRESOLINE PO SCH ×2 (06:04→13:08)
[2018-12-19] MEDS: SODIUM CHLORIDE 0.9% INJ SCH (06:04)
[2018-12-19 07:41] LABS: AGAP 12; BUN 9 mg/dL (8-22); CALCIUM 8.8 mg/dL (8.8-10.2); CHLORIDE 107 mmol/L (98-107); COSMO 273; CREATININE 0.9 mg/dL (0.5-0.9); ESTIMATED GFR > 60; GLUCOSE 77 mg/dL (70-104); POTASSIUM 3.6 mmol/L (3.5-5.1); SODIUM 138 mmol/L (136-145); TCO2 19 mmol/L (25-35)
[2018-12-19] MEDS: BYSTOLIC PO SCH (08:53)
[2018-12-19] MEDS: NORVASC PO SCH (08:53)
[2018-12-19] MEDS: TEFLARO 600 MG in NS 250 ML IV SCH (13:07)
--- NOTE | 2018-12-19 13:31 | DISCHARGE SUMMARY ---
ADMISSION DATE: 12/11/2018 DISCHARGE DATE: 12/19/2018 She is followed by Dr. Khan and Dr. Mauricio Vincent in [place]. She came in with fever and altered mental status. HISTORY: A 78-year-old female with history of multiple myeloma under active treatment, who was brought to the emergency room because during the previous two days she had confusion and fever reported. She had multiple myeloma with chemotherapy the day of admission. She takes chemotherapy 2 times a week 3/4 weeks a month. She started developing fever and mild cough. She was feeling nauseated and vomiting the reason why she is brought into the emergency room. In the ER, they found to have leukocytosis. Temperature 101.1 degrees. X-ray showed suspected community-acquired pneumonia. And so was admitted for IV antibiotics and bronchial dilators. PAST MEDICAL HISTORY: 1. Multiple myeloma under active treatment. 2. Anemia of chronic disease. 3. Hypertension. 4. Iron deficiency anemia. PAST SURGICAL HISTORY: 1. Cholecystectomy. 2. Hysterectomy. 3. Port-A-Cath placement right side of chest. 4. Peripheral vascular disease and stenting in the leg. HOSPITAL COURSE: Patient was admitted for community-acquired pneumonia, and provided broad- spectrum antibiotics. Consider that she was immunosuppressed. Because of multiple myeloma, she received Zyvox and cefepime. Her chemotherapy regimen was halted until her pneumonia resolved. Heme was consulted to manage her immunosuppression and multiple myeloma. Blood cultures were negative throughout the course of treatment. Patient also had some hypogammaglobulinemia with her multiple myeloma. She was given IV immunoglobulin. Levaquin was added to her medication. Infectious Disease was consulted. The patient's platelet count was decreased, and Dr. Foster stopped the Zyvox, cefepime and Levaquin, and put the patient on ceftaroline. The patient's symptoms improved. She had another dose of IVIG. She wanted to go to rehab so this was arranged, but she really did not want to go to rehab, so she will go home with her daughter. We will discharge her on the following medications. She has Xanax 0.5 mg q.6 hours p.r.n. She is on amlodipine 10 mg daily. Apresoline 10 mg IV q.6 hours will be stopped. She will take Apresoline 25 mg q.8 hours. We will stop her IV Protonix as well. She is on day 3 of ceftaroline and she will get it every [address] with [address]. Foster whether she is going to be able to go or when they are planning on sending her to go home. We will probably need to arrange for her to get her ceftaroline at home. Discussed with Dr. Foster. cc: Kapil Guzman MD [facility]
[2018-12-19 14:24] VITALS: BP 145/60
== END 2018-12-19 16:35 | disposition home or self-care (01) | DRG 194 ==
LOC: ED 21:34 → 4N 12-11 01:33 → SUATTDRO 12-11 01:33
PROVIDERS: ATTEND Emergency Medicine
CPT/HCPCS: 71010; 71020; 71045; 71046; 71250; 80048; 81001; 82784; 82948; 83605; 83615; 83735; 85025; 87040; 87070; 87088; 87205; 87275; 87276; 87324; 87449; 87804; 94640; 94761; 94762; 96361; 96365; 96366; 96368; 97110; 97162; 97166; 97530; 99285; A9270; C9113; J0692; J0696; J0712; J1561; J1650; J1940; J1956; J2020; J2405; J3370; J7030; J7050; S0164; XXXXX

== ENCOUNTER 2019-04-11 10:15 | Day surgery (SDC) ==
[2019-04-11] MEDS ORDERED: FENTANYL ONE (10:51)
[2019-04-11] MEDS ORDERED: DIPRIVAN 1% ONE (10:52)
[2019-04-11] MEDS ORDERED: LR 1,000 ML ONE (11:02)
[2019-04-11] MEDS ORDERED: KEFZOL 1 GM/D5W 1 GM/50 ML IVPB ONE (11:02)
[2019-04-11] MEDS ORDERED: XYLOCAINE-MPF 2% ONE (11:04)
[2019-04-11] MEDS ORDERED: NS 250 ML ONE ×2 (11:08→13:36)
[2019-04-11] MEDS ORDERED: SENSORCAINE-MPF 0.5%/EPI 1:200,000 ONE (11:08)
[2019-04-11] MEDS ORDERED: SENSORCAINE 0.5%-EPI 1:200,000 ONE (13:36)
--- NOTE | 2019-04-11 14:46 | Diag Imaging Result Doc PS360 ---
EXAM: CHEST-PORTABLE HISTORY: multiple attempts port insertion TECHNIQUE: Chest single view COMPARISON: 03/28/2019 FINDINGS: The lungs are well expanded. The heart is not enlarged. The vessels are not distended. There are no infiltrates. No effusion identified. Interval removal of the left jugular portacatheter. There is left apical pleural thickening. A granuloma is in the right apex. IMPRESSION: No pneumothorax. Electronically signed by Levi Pretty 04/11/2019 2:44 PM
[2019-04-11] MEDS ORDERED: NORCO-5 ONE (15:00)
[2019-04-11] MEDS ORDERED: MORPHINE ONE ×2 (15:00→15:06)
[2019-04-11] MEDS ORDERED: ZOFRAN PO PRN (16:45)
[2019-04-11] MEDS ORDERED: ZOFRAN IV PRN (16:45)
[2019-04-11] MEDS ORDERED: D5 1/2 NS + KCL 20 MEQ 1,000 ML IV SCH (17:00)
--- NOTE | 2019-04-11 22:04 | OPERATIVE NOTE ---
PROCEDURE DATE: 04/11/2019 PREOPERATIVE DIAGNOSIS: Multiple myeloma, history of recent port exchange from a right IJ to left IJ with a nonfunctioning left IJ. PROCEDURE: Attempted placement right IJ and right subclavian port with unsuccessful threading of the wire after ability to access the vein. There appears to be a stenotic area at the junction of the internal jugular vein and the superior vena cava. Attempts then were made to revise the left port that were unsuccessful. Subsequent to this, a right femoral vein port was placed with the reservoir in the right groin. DESCRIPTION OF PROCEDURE: The patient was brought to the operating room. After satisfactory induction of IV and endotracheal anesthesia, athrombic TEDs were placed. Her upper chest was prepped and draped in the appropriate manner. Old scar was infiltrated with Marcaine and Xylocaine with epinephrine. A transverse incision was made down to the clavipectoral fascia. Through the base of this incision, the subclavian vein was cannulated. A guidewire would not thread beyond the junction of the internal jugular in the superior vena cava. Multiple attempts were performed with this without success. Attempts were then made with a counter incision in the internal jugular area between the bellies of the sternomastoid muscle. Again, the vein was accessed, but the wire would not thread beyond the junction of the jugular and the superior vena cava. The patient had an existing left IJ port that was nonfunctional. It was accessed and did not flush or irrigate or aspirate. A guidewire was placed into the port, and the port was backed out until venous return was obtained. It did not rethread to the appropriate position. For this reason, it was subsequently removed. Once again, attempts at subclavian access were unsuccessful and IJ access was unsuccessful as well as far as threading the wire past this somewhat stenotic junction on the right side between the superior vena cava and the internal jugular. At this point, I went and discussed with the family the situation, and they wished just to persist. Subsequent to this, her groins were prepped, and a right femoral vein access was obtained. It was threaded up to the junction of the inferior vena cava. A pocket for the reservoir was made in the groin. The reservoir was anchored with 3-0 silk. The subcutaneous was closed with 3-0 Vicryl and the skin itself with 4-0 subcuticular. Sterile dressing was applied. She was subsequently awakened and extubated in the operating room and transferred to recovery. ESTIMATED BLOOD LOSS: Around 30 mL. cc: Juan Luis Jaramillo MD
[2019-04-11] MEDS: PERIDEX MT SCH (22:24)
[2019-04-11] MEDS: NORCO-5 PO PRN (23:25)
--- NOTE | 2019-04-12 07:13 | Diag Imaging Result Doc PS360 ---
EXAM: CHEST-PORTABLE HISTORY: right port placement, left port removal TECHNIQUE: Chest single view COMPARISON: 04/11/2019 FINDINGS: The lungs are well expanded. The heart is not enlarged. The vessels are not distended. There are no infiltrates. No effusion identified. No pneumothoraces. Right apical granuloma. IMPRESSION: Stable chest Electronically signed by Levi Pretty 04/12/2019 7:10 AM
[2019-04-12 07:47] VITALS: BP 143/53
[2019-04-12] MEDS ORDERED: ALDACTONE PO SCH (09:00)
[2019-04-12] MEDS ORDERED: VASOTEC PO SCH (09:00)
[2019-04-12] MEDS ORDERED: HYDROCHLOROTHIAZIDE PO SCH (09:00)
[2019-04-12] MEDS ORDERED: BYSTOLIC PO SCH (09:00)
[2019-04-12] MEDS: PERIDEX MT SCH (09:57)
[2019-04-12] MEDS: NORCO-5 PO PRN (09:59)
== END 2019-04-12 10:55 | disposition home or self-care (01) ==
LOC: OR 10:15 → 4N 10:15 → OR 04-12 10:55
PROVIDERS: ATTEND Surgery
CPT/HCPCS: 71010; 71045; 77001; 88300; A9270; C1788; J0690; J2270; J3010; J3480; J7050; J7120

== ENCOUNTER 2019-04-18 09:18 | Inpatient (IN) ==
--- NOTE | 2019-04-18 14:41 | EKG Report ---
Test Performed on : 04/18/2019 2:31:36 PM Test Reason : surgery Blood Pressure : / mmHG Vent. Rate : 057 BPM Atrial Rate : 057 BPM P-R Int : 214 ms QRS Dur : 074 ms QT Int : 466 ms P-R-T Axes : 069 045 050 degrees QTc Int : 453 ms Sinus bradycardia. with 1st degree AV block. Otherwise normal ECG When compared with ECG of 12-DEC-2016 19:37, PA interval has increased Vent. rate has decreased BY 31 BPM T wave inversion no longer evident in Lateral leads Confirmed by Megan DESHPANDE, Kapil Burns ([id number]) on 04/21/2019 9:29:48 AM
[2019-04-18 15:36] LABS: URINE SOURCE CLEAN CATCH
[2019-04-18 15:41] LABS: BILIRUBIN URINE NEGATIVE (NEGATIVE); BLOOD URINE NEGATIVE (NEGATIVE); COLOR YELLOW; GLUCOSE URINE NEGATIVE (NEGATIVE); KETONE URINE NEGATIVE (NEGATIVE); LEUKOCYTES URINE NEGATIVE (NEGATIVE); NITRITE URINE NEGATIVE (NEGATIVE); PH URINE 6.5; PROTEIN URINE TRACE mg/dL (NEGATIVE); SP GRAVITY URINE 1.007; TURBIDITY URINE CLEAR (CLEAR); UROBILINOGEN URINE NORMAL (NORMAL)
[2019-04-18 15:42] LABS: UR EPITHELIAL CELLS <10 /HPF (<10); URINE BACTERIA NEGATIVE /HPF; URINE RBC <10 /HPF (<10); URINE WBC <10 /HPF (<10)
[2019-04-18 17:10] LABS: HEMATOCRIT 25.3 % (37.0-47.0); HEMOGLOBIN 8.5 g/dL (12.0-16.0); MCH 33.5 PG (27-31); MCHC 33.6 g/dL (33-37); MCV 99.6 FL (81-99); MPV 11.1 FL (7.4-10.4); RBC 2.54 XMIL (4.2-5.4); WBC 4.39 X1000 (4.8-10.8)
[2019-04-18 17:20] LABS: AGAP 12; BUN 11 mg/dL (8-22); CALCIUM 9.1 mg/dL (8.8-10.2); CHLORIDE 91 mmol/L (98-107); COSMO 248; ESTIMATED GFR > 60; GLUCOSE 81 mg/dL (70-104); POTASSIUM 3.8 mmol/L (3.5-5.1); SODIUM 124 mmol/L (136-145); TCO2 21 mmol/L (25-35)
[2019-04-19] MEDS ORDERED: DIPRIVAN 1% ONE (07:42)
[2019-04-19] MEDS ORDERED: FENTANYL ONE (07:42)
[2019-04-19] MEDS ORDERED: ROBINUL ONE (07:42)
[2019-04-19] MEDS ORDERED: XYLOCAINE-MPF 2% ONE (07:42)
[2019-04-19] MEDS ORDERED: ZOFRAN ONE (07:42)
[2019-04-19] MEDS ORDERED: DECADRON ONE (07:50)
[2019-04-19] MEDS ORDERED: KEFZOL 1 GM/D5W 1 GM/50 ML IVPB ONE (08:07)
[2019-04-19] MEDS ORDERED: MARCAINE 0.25% PF/EPI 1:200,000 ONE (08:20)
[2019-04-19] MEDS ORDERED: D5 1/2 NS 1,000 ML IV SCH (10:00)
[2019-04-19] MEDS: NORCO-5 PO PRN (10:11)
[2019-04-19 10:42] LABS: INR 0.96; PROTIME 13.6 Seconds (11.0-16.0)
[2019-04-19] MEDS ORDERED: NS 500 ML ONE (12:44)
[2019-04-19] MEDS: HYDROCHLOROTHIAZIDE PO SCH (12:47)
[2019-04-19] MEDS: VASOTEC PO SCH (12:48)
--- NOTE | 2019-04-19 13:49 | OPERATIVE NOTE ---
PROCEDURE DATE: 04/19/2019 PREOPERATIVE DIAGNOSIS: Malpositioned right femoral port. POSTOPERATIVE DIAGNOSIS: Malpositioned right femoral port. PROCEDURE: Open incision access port with flush, port is patent. DESCRIPTION OF PROCEDURE: The patient was brought to the operating room. After satisfactory induction of IV and LMA anesthesia, her right groin was prepped and draped in the appropriate manner. The recent incision was reopened with decompression of some serous material, anaerobic and aerobic cultures were obtained. The port was seen to be laying sideways. It was flattened out, accessed and flushed, it flushed easily and aspirated. Sandoval needle was subsequently brought up and it was flushed, pushed through a piece of normal-appearing skin into the reservoir and this flushed easily. The subcutaneous was subsequently closed with interrupted 3-0 Vicryl and the skin itself with 4-0 Vicryl subcuticular. Sterile dressing was applied. The patient was subsequently awakened in the operating room and transferred to recovery. ESTIMATED BLOOD LOSS: Less than 5 mL. cc: Juan Luis Jaramillo MD
[2019-04-19] MEDS: KEFZOL 1 GM/D5W 1 GM/50 ML IVPB IV SCH ×2 (17:36→20:17)
[2019-04-19] MEDS: COUMADIN PO SCH (20:18)
[2019-04-20] MEDS: NORCO-5 PO PRN ×4 (00:39→18:04)
[2019-04-20] MEDS: KEFZOL 1 GM/D5W 1 GM/50 ML IVPB IV SCH ×2 (04:45→11:56)
[2019-04-20] MEDS: VASOTEC PO SCH (08:40)
[2019-04-20] MEDS: HYDROCHLOROTHIAZIDE PO SCH (08:41)
[2019-04-20] MEDS ORDERED: TYLENOL PO PRN (11:40)
[2019-04-20 12:47] LABS: EOS# 0.01 X1000 (0.0-0.7); EOS% 0.2 % (0.0-10.0); HEMATOCRIT 32.4 % (37.0-47.0); HEMOGLOBIN 10.8 g/dL (12.0-16.0); LYMPH# 0.16 X1000 (1.2-3.4); LYMPH% 2.5 % (20.5-51.1); MCHC 33.3 g/dL (33-37); MCV 96.1 FL (81-99); MONO# 0.09 X1000 (0.11-0.59); MONO% 1.4 % (1.7-9.3); MPV 10.7 FL (7.4-10.4); NEUT# 6.17 X1000 (1.4-6.5); NEUT% 95.9 % (42.2-75.2); RBC 3.37 XMIL (4.2-5.4); RDW 16.9 % (11.5-14.5); WBC 6.43 X1000 (4.8-10.8)
--- NOTE | 2019-04-20 13:01 | Diag Imaging Result Doc PS360 ---
CT HEAD W/O CONTRAST - 04/20/2019 INDICATION: stroke COMPARISON: 04/12/2019 FINDINGS: Stable mild cerebral atrophy. Stable advanced cerebral white matter chronic microvascular disease. No intracranial mass or hemorrhage. The skull is intact. The sinuses are clear. IMPRESSION: No acute disease or change from prior. This exam was performed using automated exposure control, adjustment of mA or kV according to patient size, and/or use of iterative reconstruction technique Electronically signed by Mihir Luo 04/20/2019 12:59 PM
[2019-04-20 13:02] LABS: ALB/GLOB RATIO 1.5; ALBUMIN 3.2 g/dL (3.5-5.0); CALCIUM 8.3 mg/dL (8.8-10.2); CREATININE 1.1 mg/dL (0.5-0.9); POTASSIUM 3.7 mmol/L (3.5-5.1); TOTAL BILIRUBIN 0.74 mg/dL (0.20-1.00); TOTAL PROTEIN 5.4 g/dL (6.3-8.3)
[2019-04-20 13:07] LABS: BANDS 1 % (0-1); EOS 1 % (1-10); LYMPHS 3 % (21-51); MONO 2 % (1-9); SEGS 93 % (42-75)
[2019-04-20 13:08] LABS: ANISOCYTOSIS 1+; HYPOCHROM 1+
[2019-04-20] MEDS ORDERED: ZOSYN 3.375 GM in NS 50 ML IV ONE (13:08)
[2019-04-20 13:09] LABS: HOWELL-JOLLY BODIES OCCASIONAL; TARGET CELLS 1+
[2019-04-20 13:10] LABS: PLT 178 X1000 (130-400)
[2019-04-20] MEDS ORDERED: NS 1,000 ML IV SCH (13:15)
[2019-04-20] MEDS ORDERED: MAXIPIME 2 GM in NS 100 ML IV ONE (13:19)
--- NOTE | 2019-04-20 14:07 | Diag Imaging Result Doc PS360 ---
CHEST-PORTABLE - 04/20/2019 INDICATION: code stroke COMPARISON: 04/12/2019 FINDINGS: There is stable interstitial fibrosis in the lung bases. No new infiltrates. Heart size is normal. No pneumothorax or large pleural effusion. IMPRESSION: Interstitial pulmonary fibrosis. Electronically signed by Mihir Luo 04/20/2019 2:04 PM
[2019-04-20 14:28] LABS: INR 0.98; PROTIME 13.8 Seconds (11.0-16.0)
[2019-04-20 14:29] LABS: PTT 25.7 Seconds (22.3-41.8)
--- NOTE | 2019-04-20 14:31 | CONSULTATION ---
DATE OF CONSULTATION: 04/20/2019 PRIMARY CARE PHYSICIAN: Dr. Mauricio Vincent in [place]. ONCOLOGIST: Dr. Melvin Gomez. SURGEON: Dr. Jaramillo. REASON FOR CONSULT: Altered mental status, questionable stroke. HISTORY OF PRESENTING COMPLAINT: Ms. Vásquez is a 78-year-old female who is known to have multiple myeloma, hypertension, iron deficiency, and follows up with Dr. Gomez. I understand she is on Kyprolis every week for 3 weeks and then will rest for a week cycle. She has been having some difficulties with her lines. A tunneled catheter was put in her right groin about a week ago and it appears to have had some issues, so patient was brought in yesterday for line malpositioning to be corrected. This was successfully done yesterday by Dr. Jaramillo and patient seems to have been doing well postoperatively. This morning Ms. Vásquez had her breakfast. Her daughter and son who were at the bedside did say that they saw Ms. Vásquez in the morning and she was having some chills and she wanted to be under the covers, but she had a good breakfast. A couple hours later a code brain was activated because Ms. Vásquez was aphasic. When I came for the brain code, initially Ms. Vásquez would not talk to me, but she would respond to almost everything that you would ask her to do. She seems confused. A CT scan was ordered immediately and it did not show any acute bleed. However, after re- evaluating Ms Vásquez, she was mobile. She was responding. At this time the son and the daughter have come to her bedside. From the surgical report, it appears that there was some seroma expressed from her groin area when the port was being repositioned and that fluid is growing gram-negative seven. We have also been told that Ms. Vásquez had a temperature of 102 degrees just a couple hours ago. It appears that Ms. Vásquez is becoming septic. PAST MEDICAL HISTORY: 1. Multiple myeloma, under active treatment with Dr. Gomez. 2. Anemia of chronic disease. 3. Hypertension. 4. Iron deficiency. PAST SURGICAL HISTORY: 1. Cholecystectomy. 2. Hysterectomy. 3. Multiple port placements, the recent 1 being correction of a malpositioned port in the right groin yesterday. SOCIAL HISTORY: Ms. Vásquez lives with her daughter most part of the month. She will, however, go to her home for 2 or 3 days and then come back to her daughter's house. I understand she does all of her ADLs by herself. She denies any drinking or any illicit drug use. She, however, has about 30 pack year history of smoking. ALLERGIES: None. REVIEW OF SYSTEMS: Fourteen point review of system conducted with Ms. Vásquez. Most times she is kind of quiet so it is probably not reliable, but for the most part, she did not complain of anything else. PHYSICAL EXAMINATION: Vital signs: Blood pressure is 167/57, pulse of 78, respirations 24, temperature is 102.7 degrees. The patient was saturating 97%. General: Ms. Scales is a 78- year-old female. She is in bed. She did not seem to be in any distress. HEENT: Mucosa is pink and moist. Anicteric. Acyanotic. Head is normocephalic and atraumatic. Neck: Supple. Trachea is midline. There is no thyromegaly. There is some stitch on the right IJ area due to previous IV access. There are some bilateral recent surgical scars on the upper chest consistent of where ports used to be. Chest: Good air entry bilaterally. A few crackles in both lung. I think it is more on the right than the left. No rhonchi. Cardiovascular: Regular rate and rhythm. There are no murmurs, no rubs, and no gallops. GI: Abdomen is soft, nontender. Bowel sounds present. There is no hepatosplenomegaly. Inguinal region: The right inguinal region has a port in place. Right below the port there is an area of induration which is tender. When you express, some serous material comes. The gauze that was over the port in that area was minimally solid. It did not look purulent. Extremities: No pedal edema. Distal pulses are present. MACHINE II CUTTER: Ms. Vásquez for the most part is quite and she does not say a whole lot. However, she was able to tell me the name of her daughter. She was able to tell me her name and she told me she knew where she was. She would move all extremities upon command and I did not appreciate any side weaker than the other. Cranial nerves 2-12 have been grossly examined and they seem to be intact. LABORATORY DATA: WBC is 6.43, hemoglobin is 10.8, platelet count of 178,000. The patient has 93% neutrophils. Chemistry has also been reviewed. Sodium is 129, creatinine is 1.1. Rest of chemistry is unremarkable. So far, the culture from the groin is showing gram-negative seven. IMAGING STUDIES: A CT scan of the head shows no acute disease. An EKG shows normal sinus rhythm, normal axis, no ST-segment or T-wave abnormalities. ASSESSMENT: Ms. Vásquez who has a history of multiple myeloma, on active treatment, has been having issues with her access, had a malpositioned port in her groin taken care of yesterday, and she is now having fever and chills, giving a picture of sepsis. The groin culture is growing a gram-negative seven. 1. Altered mental status secondary to global encephalopathy associated with fever, chills, and a gram-negative seven growing in patient's groin. This would all be suggestive of an infectious encephalopathy. 2. Sepsis. We think the source is probably from the infected groin hematoma and it is very possible that this has gained access to the patient's blood stream. The fact that she is immunocompromised will probably make this a little worse, so we are going to cover her more broadly with cefepime and discontinue the cefazolin. 3. Gram-negative seven infected hematoma of the groin. There is still some induration. It does not feel fluctuant in the groin area. The patient is getting antibiotics. Infectious Disease has also been consulted. 4. Mild acute kidney injury. 5. Hyponatremia, most likely associated with volume depletion. We will start the patient on gentle IV fluids. PLAN: So in general, Ms. Scales is going to be transferred to the ICU overnight. Will keep a very close eye on her vitals. She has potential to get even worse because she is immunocompromised. We will start her on broad-spectrum IV antimicrobial therapy (cefepime) because of the gram-negative seven in the groin culture. Urine cultures and blood cultures have all been done and sepsis protocol has been activated. We will continue to monitor the patient's neurological status. At this point, we do not think it is an acute stroke. We will also do a chest x-ray and a CTA of the lungs. We will continue to follow the patient with you and thank you for the opportunity to see the patient. cc: Josef Flores MD
[2019-04-20 15:14] LABS: ALB/GLOB RATIO 1.2; CALCIUM 8.2 mg/dL (8.8-10.2); CREATININE 1.1 mg/dL (0.5-0.9); POTASSIUM 3.2 mmol/L (3.5-5.1); TOTAL BILIRUBIN 0.7 mg/dL (0.20-1.00); TOTAL PROTEIN 5.6 g/dL (6.3-8.3)
--- NOTE | 2019-04-20 15:48 | Diag Imaging Result Doc PS360 ---
CT ANGIOGRM PULMONARY ARTERIES - 04/20/2019 INDICATION: rule out PE TECHNIQUE: Axial CT images were obtained after administering intravenous contrast. Coronal MIP images were generated. COMPARISON: None FINDINGS: There is moderate patient motion artifact. No pulmonary embolism. There is cardiomegaly. There is a benign-appearing cyst in the spleen. Otherwise upper abdominal organs all appear normal. There is moderate COPD. There is some trace dependent atelectasis or edema. There are moderate degenerative changes of the spine. No acute or suspicious bony lesion. IMPRESSION: Negative for pulmonary embolism. Cardiomegaly. Trace interstitial edema or atelectasis in the lung bases. Trace bilateral pleural effusions. COPD. This exam was performed using automated exposure control, adjustment of mA or kV according to patient size, and/or use of iterative reconstruction technique Electronically signed by Mihir Luo 04/20/2019 3:46 PM
[2019-04-20] MEDS: NS + KCL 20 MEQ 1,000 ML IV SCH (16:07)
--- NOTE | 2019-04-20 18:55 | INFECTIOUS DISEASE CONSULT REP ---
DATE: 04/20/2019 CONCLUSION: The patient has an infected right groin Port-A-Cath site. The infection is a gram- negative seven which has not yet been identified. RECOMMENDATIONS: I agree with decision to treat the patient with cefepime pending culture results. The patient was unable provide a history. The information I obtained was from the computer. The patient was admitted to the hospital with an altered mental status. She was found to have gram-negative rods growing from a recently placed Port-A-Cath site. The patient's CBC shows a white count of 6430, hemoglobin 10.8, platelet count 178,000. Creatinine is 1.1. GFR is 58. Urinalysis showed no white cells or bacteria. Liver function studies were normal. Right groin culture is growing gram-negative seven. Blood and urine cultures are pending. Chest x-ray shows pulmonary fibrosis. CT angiogram shows no pulmonary embolus. CT scan of the head shows chronic microvascular changes. PAST MEDICAL HISTORY: Positive for multiple myeloma, anemia of chronic disease, hypertension and iron deficiency. PAST SURGICAL HISTORY: Positive for cholecystectomy, hysterectomy and multiple Port-A-Cath placements and removals. ALLERGIES: She has no drug allergies. HOME MEDICATIONS: At home her home medications are Xanax, enalapril/hydrochlorothiazide, hydrocodone, Bystolic, Zofran, spironolactone and Coumadin. REVIEW OF SYSTEMS: Unable to be obtained. SOCIAL HISTORY: The patient does not drink alcoholic beverages and does not use illicit drugs. She does have a 30 pack-year history of smoking. PHYSICAL EXAMINATION: Vital Signs: Temperature earlier today was 102.4 now it is down to 99, the pulse is 73, respirations 22, blood pressure 170/77. Patient is 5 feet 5 inches tall, weighs 170 pounds. General: This is an ill-appearing elderly female. She is in no acute distress. Head/eyes/ears/nose/throat: She was able to hear my spoken words. I could not formally test her vision although she did track with her eyes. Neck: No meningismus. Lungs: Clear to auscultation. Cardiovascular: Regular heart rate. Abdomen: Soft and nontender. In the right groin there was a catheter in place and a dressing over the catheter site. Thorax: Both left and right incisions were present where previous [id number] had been placed. The incisions were not swollen or purulent. Neurologic: The patient is awake. She did move her extremities to request. There was no tremor. Integument: No rash noted. Thank you for the consult. cc: MD Josef Lafleur MD
[2019-04-20] MEDS: MAXIPIME 2 GM in NS 100 ML IV SCH (21:04)
[2019-04-20] MEDS: COUMADIN PO SCH (21:04)
[2019-04-21] MEDS: NORCO-5 PO PRN ×2 (01:07→10:44)
[2019-04-21] MEDS ORDERED: MAXIPIME 2 GM in NS 100 ML IV SCH (01:30)
[2019-04-21] MEDS: NS + KCL 20 MEQ 1,000 ML IV SCH ×2 (05:00→16:44)
[2019-04-21] MEDS: MAXIPIME 2 GM in NS 100 ML IV SCH ×3 (05:00→20:37)
[2019-04-21 06:36] LABS: BASO# 0.02 X1000 (0.0-0.2); BASO% 0.1 % (0.0-0.8); EOS# 0.06 X1000 (0.0-0.7); EOS% 0.4 % (0.0-10.0); HEMATOCRIT 30.8 % (37.0-47.0); HEMOGLOBIN 10.3 g/dL (12.0-16.0); IMM GRAN# 0.06 X1000 (0.0-0.04); IMM GRAN% 0.4 % (0.0-0.5); LYMPH# 0.39 X1000 (1.2-3.4); LYMPH% 2.3 % (20.5-51.1); MCH 31.7 PG (27-31); MCHC 33.4 g/dL (33-37); MCV 94.8 FL (81-99); MONO# 1.33 X1000 (0.11-0.59); MONO% 7.8 % (1.7-9.3); MPV 11.1 FL (7.4-10.4); NEUT# 15.22 X1000 (1.4-6.5); PLT 177 X1000 (130-400); RBC 3.25 XMIL (4.2-5.4); WBC 17.08 X1000 (4.8-10.8)
[2019-04-21 07:22] LABS: AGAP 10; BUN 14 mg/dL (8-22); CALCIUM 8.1 mg/dL (8.8-10.2); CHLORIDE 99 mmol/L (98-107); COSMO 262; CREATININE 0.9 mg/dL (0.5-0.9); ESTIMATED GFR > 60; GLUCOSE 81 mg/dL (70-104); POTASSIUM 4.5 mmol/L (3.5-5.1); SODIUM 131 mmol/L (136-145); TCO2 22 mmol/L (25-35)
[2019-04-21 08:36] LABS: INR 1.08; PROTIME 14.8 Seconds (11.0-16.0)
[2019-04-21] MEDS ORDERED: NS 250 ML ONE (08:53)
--- NOTE | 2019-04-21 09:14 | INFECTIOUS DISEASE PROGRESS NO ---
DATE: 04/21/2019 PRESENT ILLNESS: The patient has an Enterobacter infected right groin Port-A-Cath site. She has had a temperature yesterday of 102.4 and today, her white blood cell count is up to 17,080. MEDICATIONS: The patient is on cefepime 2 g IV every 8 hours. PHYSICAL EXAMINATION: Vital Signs: Temperature now is 98.9. As mentioned above, yesterday, the patient's temperature did get to 102.4. Pulse is 64, respirations 20, blood pressure 170/77. General: This is an ill-appearing, elderly female. She is in no acute distress. Head, Eyes, Ears, Nose, and Throat: She can hear my spoken words and see near objects. She does not have any white patches in her mouth. Neck: No meningismus. Lungs: Clear to auscultation. Cardiovascular: Heart rate is regular. Abdomen: Soft and nontender. In the right groin, there is a dressing overlying the patient's Port-A-Cath that was inserted by Dr. Jaramillo in the right groin area. Neurologic: The patient is awake. She can move her extremities. There is no tremor. LAB AND X-RAY: CBC shows a white count of 17,080, hemoglobin 10.3, platelet count is 177,000. Creatinine is 0.9. GFR is greater than 60. A culture taken from the groin is growing Enterobacter. ASSESSMENT AND PLAN: The patient has an infected right groin Port-A-Cath with Enterobacter. I am going to continue with cefepime and I agree with Dr. Jaramillo' decision to remove the Port-A-Cath. COMORBIDITIES: She is elderly. She has multiple myeloma and anemia of chronic disease, along with iron deficiency. cc: MD Josef Lafleur MD
--- NOTE | 2019-04-21 09:52 | EKG Report ---
Test Performed on : 04/20/2019 12:12:21 PM Test Reason : 4N. No order in [place] Blood Pressure : / mmHG Vent. Rate : 078 BPM Atrial Rate : 078 BPM P-R Int : 164 ms QRS Dur : 070 ms QT Int : 384 ms P-R-T Axes : 058 032 050 degrees QTc Int : 437 ms Normal sinus rhythm. Low voltage QRS Borderline ECG When compared with ECG of 18-APR-2019 14:31, (Unconfirmed) FL interval has decreased Confirmed by Charlie Laws MD ([id number]) on 04/28/2019 9:47:14 PM
[2019-04-21] MEDS: ZOFRAN IV PRN (10:00)
--- NOTE | 2019-04-21 10:18 | Diag Imaging Result Doc PS360 ---
EXAM: CHEST-PORTABLE HISTORY: PICC line placement/ confirmation TECHNIQUE: Portable chest single view COMPARISON: 04/20/2019 FINDINGS: The lungs are well expanded. Interval placement of a left-sided PICC line. The tip is near the junction with the right subclavian vein. It should probably be advanced approximately 4 cm. The heart is not enlarged. The vessels are not distended. There are no infiltrates. No effusion identified. IMPRESSION: Interval placement of left-sided PICC line. It should probably be advanced approximately 4 cm. Electronically signed by Levi Pretty 04/21/2019 10:16 AM
[2019-04-21] MEDS ORDERED: VASOTEC PO ONE (10:34)
[2019-04-21] MEDS: HYDROCHLOROTHIAZIDE PO SCH (10:44)
[2019-04-21] MEDS: BYSTOLIC PO SCH (10:47)
--- NOTE | 2019-04-21 12:21 | PROGRESS NOTE ---
DATE: 04/21/2019 SUBJECTIVE: This morning, Ms. Vásquez refers to be feeling a whole lot better. She is more awake. She is alert. She is conversational. OBJECTIVE: Vital Signs: Blood pressure is 188/96, pulse of 50, respirations are 12, temperature is 98.7 degrees, patient is saturating 100% on room air. General Examination: Ms. Vásquez is a 78-year-old, female. She was in bed in the ICU. There was no family member there. HEENT: Mucosa was pink and moist. Anicteric. Acyanotic. Neck: Supple. Chest: Good air entry bilaterally. There were no crepitations. No rhonchi. Cardiovascular: Regular rate and rhythm. No murmurs, no rubs, no gallops. GI: Abdomen was soft, nontender. Bowel sounds present. There is still a catheter in the right inguinal region which has been covered with a sterile dressing. It did not look soiled. Extremities: No pedal edema. Distal pulses are present. AERONAUTICAL ENGINEER: The patient is awake, alert, conversational, and follows command. She was actually taking her pills when I saw her. Lab Work: Her WBC is up to 17.08, hemoglobin is 10.3, platelet count is 177,000. Chemistry is also reviewed. Creatinine has normalized to 0.9. Sodium is up to 131. So far, the groin culture is showing Enterobacter cloacae complex. Blood cultures are still pending and the urine culture is negative. ASSESSMENT: 1. Transient altered mental status with no focalization, presumably medication- induced versus infectious encephalopathy. The patient's mentation has significantly improved. 2. Sepsis secondary to right infected tunneled Cath with culture showing Enterobacter cloacae complex. The patient is currently on intravenous cefepime. There is a plan for the removal of the tunneled catheter. 3. Acute kidney injury, improved with fluid resuscitation. 4. Hyponatremia, also getting better. 5. History of multiple myeloma. Patient follows up with Dr. Roach. PLAN: In general, Ms. Vásquez seems to be doing a whole lot better. Mentation has improved. I think she is now back to her baseline. We are going to be extremely careful with sedatives and narcotic use in her. There is a plan for the catheter removal since white cell count has doubled up. cc: Josef Flores MD [facility]
[2019-04-21] MEDS ORDERED: XYLOCAINE 1%/EPI 1:100,000 ONE (16:07)
[2019-04-21] MEDS ORDERED: SENSORCAINE-MPF 0.5%/EPI 1:200,000 ONE (16:07)
[2019-04-21] MEDS ORDERED: HYDROGEN PEROXIDE SOLUTION ONE (16:07)
[2019-04-21] MEDS ORDERED: XYLOCAINE-MPF 2% ONE (16:19)
[2019-04-21] MEDS ORDERED: DIPRIVAN 1% ONE (16:19)
[2019-04-21] MEDS: APRESOLINE IV PRN (17:12)
--- NOTE | 2019-04-21 17:58 | OPERATIVE NOTE ---
PROCEDURE DATE: 04/21/2019 PREOPERATIVE DIAGNOSIS: Infected right femoral port. POSTOPERATIVE DIAGNOSIS: Infected right femoral port. PROCEDURE: Port removal. DESCRIPTION OF PROCEDURE: Patient was brought to the operating room. After satisfactory induction of IV and MAC anesthesia, her right groin was prepped and draped in the appropriate manner. The recent incision in her right groin was infiltrated with a combination of Marcaine and Xylocaine with epinephrine and reopened. There was some necrotic fat and purulent material. This previously proved to be Enterobacter. The port was delivered and removed with no back bleeding. The wound was irrigated with peroxide and debrided. The skin was closed with widely spaced stainless steel clips. Sterile dressing was applied. She was awakened in the operating room and transferred to recovery. ESTIMATED BLOOD LOSS: 2-3 mL. cc: MD Josef Soria MD
[2019-04-21] MEDS: COUMADIN PO SCH (20:41)
[2019-04-22] MEDS: APRESOLINE IV PRN (00:09)
[2019-04-22] MEDS: NS + KCL 20 MEQ 1,000 ML IV SCH (04:02)
[2019-04-22] MEDS: MAXIPIME 2 GM in NS 100 ML IV SCH ×4 (05:01→23:08)
[2019-04-22 05:25] LABS: BASO# 0.02 X1000 (0.0-0.2); BASO% 0.1 % (0.0-0.8); EOS# 0.16 X1000 (0.0-0.7); EOS% 1.2 % (0.0-10.0); HEMATOCRIT 30.9 % (37.0-47.0); HEMOGLOBIN 10.2 g/dL (12.0-16.0); IMM GRAN# 0.04 X1000 (0.0-0.04); IMM GRAN% 0.3 % (0.0-0.5); LYMPH# 1.09 X1000 (1.2-3.4); LYMPH% 8.1 % (20.5-51.1); MCH 31.2 PG (27-31); MCV 94.5 FL (81-99); MONO# 0.92 X1000 (0.11-0.59); MONO% 6.8 % (1.7-9.3); MPV 10.9 FL (7.4-10.4); NEUT# 11.21 X1000 (1.4-6.5); NEUT% 83.5 % (42.2-75.2); PLT 164 X1000 (130-400); RBC 3.27 XMIL (4.2-5.4); RDW 16.4 % (11.5-14.5); WBC 13.44 X1000 (4.8-10.8)
[2019-04-22 05:48] LABS: AGAP 12; BUN 13 mg/dL (8-22); CALCIUM 8.3 mg/dL (8.8-10.2); CHLORIDE 102 mmol/L (98-107); COSMO 268; CREATININE 0.9 mg/dL (0.5-0.9); ESTIMATED GFR > 60; GLUCOSE 85 mg/dL (70-104); POTASSIUM 4.2 mmol/L (3.5-5.1); SODIUM 134 mmol/L (136-145); TCO2 20 mmol/L (25-35)
[2019-04-22] MEDS: HYDROCHLOROTHIAZIDE PO SCH (07:59)
[2019-04-22] MEDS: BYSTOLIC PO SCH (07:59)
[2019-04-22] MEDS: NORCO-5 PO PRN ×2 (07:59→19:16)
[2019-04-22] MEDS ORDERED: VASOTEC PO SCH (09:00)
--- NOTE | 2019-04-22 12:08 | INFECTIOUS DISEASE PROGRESS NO ---
DATE: 04/22/2019 PRESENT ILLNESS: The patient has an Enterobacter-infected right groin Port-A-Cath site. The catheter has been removed. MEDICATIONS: The patient is receiving cefepime 2 g IV every 8 hours. PHYSICAL EXAMINATION: Vital Signs: Temperature is 99.6 degrees, pulse 60, respirations 20, blood pressure 170/70. General: This is a somewhat ill-appearing, elderly female. She is in no acute distress, however. Head/eyes/ears/nose/throat: She can hear my spoken words and see near objects. She does not have any white coating of her tongue. Neck: She does not have any neck pain when she moves her neck or her head. Lungs: Clear to auscultation. Cardiovascular: Heart rate is regular. Abdomen: Soft and nontender. In the right groin, there is a dressing overlying the patient's Port-A-Cath wound. The Port-A-Cath was removed yesterday. Extremities: The patient has a PICC in her left arm. The site is not swollen or draining. Neurologic: The patient is awake. She can move her extremities. There is no tremor. LABORATORY AND X-RAY: There is no new radiographic study. CBC shows the white count has come down to 13,440, hemoglobin 10.2, platelet count is 164,000. Creatinine is 0.9, GFR is greater than 60. ASSESSMENT AND PLAN: Patient has an Enterobacter-infected right groin Port-A-Cath site. The Port- A-Cath has been removed. I plan to continue with cefepime. COMORBIDITIES: The patient is elderly. She has multiple myeloma and anemia of chronic disease along with iron deficiency. cc: MD Josef Lafleur MD
--- NOTE | 2019-04-22 14:08 | PROGRESS NOTE ---
DATE: 04/22/2019 SUBJECTIVE: This morning, Ms. Vásquez refers to be feeling a lot better. She has been transferred to the surgical floor from the ICU. OBJECTIVE: Vital signs: Blood pressure is 173/68, pulse of 61, respirations, temperature 98.7 degrees. Patient is saturating 100% on room air. General: Ms. Vásquez is a 78-year-old female. She was in bed. No distress. Mucosa is pink and moist. Anicteric. Acyanotic. Neck: Supple. Chest: Good air entry bilateral. No crepitations. No rhonchi. Cardiovascular: Regular rate and rhythm. No murmurs, no rubs, no gallops. Gastrointestinal: Abdomen is soft, nontender. Inguinal region, the right inguinal tunnel cath has been removed and the surgical site is affronted with surgical clips. Central Nervous System: Patient is awake, alert, oriented. No focal neurological deficit. LABORATORY DATA: WBC down to 13.44, hemoglobin is 10.3, platelet count of 154,000. Chemistry is also reviewed. Sodium is up to 134. So far, blood cultures have come back negative. Urine culture negative. The culture from the groin is Enterobacter cloacae complex. ASSESSMENT: 1. Transient episode of altered mental status with no focalization, presumably due to either medication or infectious encephalopathy, resolved. Mentation is back to baseline. 2. Sepsis secondary to right infected inguinal tunnel catheter culture showing Enterobacter cloacae complex. The patient is on IV ceftriaxone. Catheter has been removed. The patient is now hemodynamically stable. I feel we can switch medications to p.o. Levaquin whenever the patient is ready for discharge. 3. Acute kidney injury, resolved with fluid resuscitation. 4. Hyponatremia resolved. 5. History of multiple myeloma. Patient follows up with Dr. Roach. In general, I think Ms. Vásquez is doing well. The infected right tunnel inguinal catheter has been removed. She is on ideal antimicrobial coverage which can be switched to something oral at the time of discharge. From a medical standpoint, we think Ms. Vásquez is stable for discharge any time surgery deems necessary. cc: Josef Flores MD [facility]
[2019-04-22] MEDS ORDERED: LASIX IV ONE (15:48)
[2019-04-22] MEDS: ZOFRAN IV PRN (17:35)
[2019-04-22] MEDS: COUMADIN PO SCH ×2 (19:48→23:09)
[2019-04-22] MEDS: VASOTEC PO SCH ×2 (19:48→23:08)
[2019-04-23] MEDS: MAXIPIME 2 GM in NS 100 ML IV SCH ×2 (04:41→22:23)
[2019-04-23] MEDS: BYSTOLIC PO SCH (08:56)
[2019-04-23] MEDS: HYDROCHLOROTHIAZIDE PO SCH (08:56)
[2019-04-23] MEDS: VASOTEC PO SCH ×3 (08:56→23:42)
--- NOTE | 2019-04-23 09:43 | PROGRESS NOTE ---
DATE: 04/23/2019 SUBJECTIVE: This morning, Mr. Vásquez refers to be doing well. I understand last night, she got confused, agitated, and eventually ended up pulling out her PICC line. OBJECTIVE: Current Vital Signs: Blood pressure is 182/77, pulse of 64, respirations are 16, temperature is 98.4 degrees. General Examination: Ms. Vásquez is a 78-year-old, female. She is in bed. No distress. HEENT: Mucosa is pink and moist. Anicteric. Acyanotic. Neck: Supple. Chest: Good air entry bilaterally. No crepitations. No rhonchi. Cardiovascular: Regular rate and rhythm. No murmurs, no rubs, no gallops. GI: Abdomen is soft, nontender. Bowel sounds present. Inguinal Region: At the right side, the tunneled catheter has been removed. The surgical site is clean. It is affronted with clips. Mild swelling noted. SURPLUS PROPERTY DISPOSAL AGENT: The patient is awake, alert. Followed basic commands. Laboratory Data: None for this morning. Blood cultures have come back completely negative. ASSESSMENT: 1. Transient episode of altered mental status. No focalization. Presumed to be medication- induced versus infectious encephalopathy. This has resolved. However, the patient also gets delirium and we suspect that she has an underlying dementia. We will try to avoid any benzodiazepines or any psychotropic medication with potential to make her mentation worse. 2. Sepsis secondary to right infected inguinal tunneled catheter with culture positive for Enterobacter cloacae complex. The patient is on intravenous cefepime. Blood cultures have been negative. I think we can switch this to something oral. Infectious disease is on board so we will wait for them to evaluate. 3. Acute kidney injury secondary to dehydration, resolved. 4. History of multiple myeloma. Patient follows up with Dr. Roach. 5. Uncontrolled hypertension. We have added amlodipine to her medication and also gone up on the enalapril to 10 twice a day. PLAN: In general, I think Ms. Vásquez is doing fairly okay. We are going to remove the Hauser catheter this morning. The patient has removed the PICC line. She is still on cefepime. However, her culture is sensitive to Levaquin and other oral preparations so we will wait for ID to make a determination about her antimicrobial therapy. Then, hopefully, she can be discharged. From a medical standpoint, we think she is stable for discharge. cc: Josef Flores MD
--- NOTE | 2019-04-23 11:52 | INFECTIOUS DISEASE PROGRESS NO ---
DATE: 04/23/2019 PRESENT ILLNESS: The patient has an Enterobacter-infected right groin Port-A-Cath site infection. The catheter has been removed. The patient's daughter feels that the patient has possible altered mental status. MEDICATIONS: Currently, the patient is getting cefepime in a dose of 2 g IV every 8 hours. PHYSICAL EXAMINATION: Vital Signs: Temperature is 98.4 degrees, pulse 64, respirations 16, blood pressure 182/77. General: This is an ill-appearing elderly female. She is in no acute distress today. Head/eyes/ears/nose/throat: She can hear my spoken words and see near objects. She does not have any white patches in her mouth. Neck: No meningismus. Lungs: Clear to auscultation. Cardiovascular: Regular heart rate. Abdomen: Soft and nontender in the right groin. The patient has a wound where she had her Port-A-Cath removed. The incision site has clips in them; the site itself is not swollen or draining. It does not seem to be tender either. Extremities: The patient did have a PICC in her left arm. However, she became confused last night and apparently pulled it out. Neurologic: The patient is awake today. She did seem to be somewhat confused. LAB AND X-RAY: There is no new radiology study for today. CBC shows a white count of 13,440, hemoglobin 10.2, platelet count 164,000, creatinine is 0.9. GFR is greater than 60. ASSESSMENT AND PLAN: I am going to continue with cefepime to treat the patient's Enterobacter- infected right groin Port-A-Cath, except I am going to decrease the dose of cefepime to 2 gram intravenous every 12 hours. I think this may improve her confusion. COMORBIDITIES: The patient is elderly. She has multiple myeloma and the anemia of chronic disease, along with iron deficiency. cc: MD Josef Lafleur MD
[2019-04-23] MEDS: APRESOLINE IV PRN (16:41)
[2019-04-23] MEDS: NORVASC PO SCH (16:42)
[2019-04-23] MEDS: NORCO-5 PO PRN (18:40)
[2019-04-23] MEDS: COUMADIN PO SCH ×2 (19:56→23:42)
[2019-04-24] MEDS: MAXIPIME 2 GM in NS 100 ML IV SCH (10:04)
[2019-04-24] MEDS: NORVASC PO SCH (10:09)
[2019-04-24] MEDS: BYSTOLIC PO SCH (10:09)
[2019-04-24] MEDS: HYDROCHLOROTHIAZIDE PO SCH (10:09)
[2019-04-24] MEDS: VASOTEC PO SCH (10:10)
--- NOTE | 2019-04-24 10:47 | PROGRESS NOTE ---
DATE: 04/24/2019 SUBJECTIVE: This morning Miss Vásquez refers to be doing well. No new complaints. The daughter was at the bedside at the time of the encounter. PHYSICAL EXAMINATION: general: Miss Vásquez is a 78-year-old female. She is in bed. No distress. heent: Mucous is pink and moist. Anicteric. Acyanotic. Vital Signs: Blood pressure is 175/74, pulse 58, respirations 20, temperature is 98.5 degrees. chest: Good air entry bilateral. There was no crepitations. No rhonchi. Cardiovascular: Regular rate and rhythm. No murmurs, no rubs, no gallops. Gastrointestinal: Abdomen is soft. Inguinal region has the suture that looks clean. CENTRAL NERVOUS SYSTEM: The patient is awake. Follows basic commands. Does have some underlying dementia. LABORATORY WORK: No new laboratory work for today. ASSESSMENT: 1. Transient episode of altered mental status. No focalization. CT imaging was unremarkable. 2. Delirium with baseline dementia. 3. Sepsis secondary to right infected inguinal tunnel catheter with culture positive for Enterobacter cloacae complex. Blood cultures have been negative. The patient was on cefepime. I think she will be transitioned to oral Levaquin for discharge. 4. Acute kidney injury secondary to dehydration, resolved. 5. Uncontrolled hypertension, improving. 6. History of multiple myeloma. The patient follows up with Dr. Gomez. In general, Miss Vásquez is fairly stable. She got actually admitted because of issues with her right tunnel catheter. Unfortunately, that seems to have been infected, so she was admitted. It was initially thought that she had a malpositioning, so she was initially admitted for proper positioning. When that was done, a day later she became acutely confused on the floor. She looked septic. She was transferred to the ICU. Her culture came back positive from the catheter site to be enterococcal cloacae. The patient has been on ideal antimicrobial coverage. Mentation is back to baseline. She will occasionally have some delirious from some delirium manifestation, especially in the middle of the night, which we think is associated with hospitalization. This morning she is fairly stable. The daughter was at the bedside. We think she is okay for discharge any time Surgery deems so. cc: Josef Flores MD [facility]
[2019-04-24 11:39] VITALS: BP 160/81
--- NOTE | 2019-04-24 12:06 | INFECTIOUS DISEASE PROGRESS NO ---
DATE: 04/24/2019 PRESENT ILLNESS: The patient had an Enterobacter infected right groin Port-A-Cath site infection. The catheter has been removed and the patient's groin infection has cleared. The patient did have an altered mental status which I think was due to the high dose of cefepime that she was receiving. MEDICATIONS: The patient is on cefepime 2 g IV every 12 hours. PHYSICAL EXAMINATION: Vital Signs: Temperature is 98.5 degrees, pulse 58, respirations 20, blood pressure 175/74. General: This is a somewhat ill-appearing, elderly female. She is in no acute distress. Head, eyes, ears, nose, and throat: She can hear my spoken words and see near objects. She does not have any white coating of her tongue. Neck: No meningismus. Lungs: Clear to auscultation. Cardiovascular: Regular heart rate. Abdomen: Soft and nontender. The patient's groin wound where she had the Port-A-Cath has cleared. There is no purulent drainage or tenderness. The patient's incision sites have all healed. Neurologic: The patient is alert and is talking in a coherent fashion. There is no tremor. LAB AND X-RAY: There is no new laboratory data back today and there also is no new radiographic study back today. ASSESSMENT AND PLAN: The patient had an Enterobacter infected right groin Port-A-Cath site. This has cleared and the patient's altered mental status has improved since the dose of cefepime has been decreased to 2 g IV every 12 hours. I think the patient now is back to a normal state and she does not have an active infection. I do not think she requires anymore antibiotic therapy. I am signing off the patient's case but I am available to see her on a p.r.n. basis. COMORBIDITIES: The patient is elderly and she has multiple myeloma along with the anemia of chronic disease and an iron deficiency. cc: MD Josef Lafleur MD
--- NOTE | 2019-04-29 05:56 | DISCHARGE SUMMARY ---
ADMISSION DATE: 04/21/2019 DISCHARGE DATE: 04/24/2019 DIAGNOSIS: Infected right femoral port. PROCEDURE: Removal. HISTORY: The patient is a 78-year-old black female with long history of multiple myeloma who had been treated with the maintenance chemotherapy by Dr. Gomez. Recently, she had had a right IJ port that had ceased to function after 2 years. This was removed, and a left IJ port was placed. This never functioned properly, and the patient was referred to [facility] for further evaluation. 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 No wire would pass through this area. For this reason, 2 weeks ago she had a right femoral vein port placed. This was never accessed properly. It was able to access in the OR with it flushed, but then subsequently developed an infection that eventually grew Enterobacter. Dr. Foster was consulted and with the patient being febrile and an elevated white count the catheter was subsequently removed. The patient's hospitalization after this was uneventful, and her white count defervesced back to normal. The wound healed satisfactorily, and the patient was allowed home on 04/24. She will see Dr. Gomez this week with consideration of termination of the chemotherapy or referral to the invasive radiologist at [facility] for possible balloon dilation of the stenotic area and a right IJ subclavian vein complex. The patient has a progressive dementia. The daughter says that this is related more to the hospitalization and she is much more functional at home so they will discuss this with Dr. Gomez and entertain further treatment options. cc: MD Josef Soria MD
== END 2019-04-24 11:51 | disposition home health service (06) | DRG 315 ==
LOC: RAD 09:18 → 4N 09:18 → ICU 04-20 15:01 → 4N 04-22 09:43
PROVIDERS: ADMIT Internal Medicine; ATTEND Surgery
CPT/HCPCS: 36430; 36569; 70450; 71010; 71045; 71275; 80048; 80053; 81001; 82550; 82948; 83605; 84443; 84484; 85025; 85027; 85610; 85730; 86850; 86870; 86900; 86901; 86920; 86922; 87040; 87070; 87075; 87077; 87088; 87186; 87205; 88300; 93005; 93010; 94761; A9270; J0360; J0690; J0692; J1100; J1940; J2405; J3010; J3480; J7030; J7040; J7050; P9016; Q9967; S0020; XXXXX

== ENCOUNTER 2019-07-31 08:18 | Inpatient (IN) ==
--- NOTE | 2019-07-31 08:47 | EKG Report ---
Test Performed on : 07/31/2019 08:36:36 AM Test Reason : FULL ARREST Blood Pressure : / mmHG Vent. Rate : 100 BPM Atrial Rate : 100 BPM P-R Int : 000 ms QRS Dur : 146 ms QT Int : 396 ms P-R-T Axes : 000 122 -49 degrees QTc Int : 510 ms Undetermined rhythm Nonspecific intraventricular block Possible Right ventricular hypertrophy Cannot rule out Septal infarct , age undetermined Lateral infarct , age undetermined T wave abnormality, consider inferior ischemia Abnormal ECG No previous ECGs available Unconfirmed Result
[2019-07-31] MEDS ORDERED: NITROGLYCERIN ONE (08:59)
[2019-07-31] MEDS ORDERED: LASIX ONE (09:00)
--- NOTE | 2019-07-31 09:03 | PROVIDER DOCUMENTATION ---
HPI-Cardiopulmonary Arrest - General Chief Complaint: Full Arrest Stated Complaint: FULL ARREST Time Seen by Provider: 07/31/19 08:58 Source: EMS Unable to obtain history due to:: urgency Allergies/Adverse Reactions: Allergies Allergy/AdvReac Type Severity Reaction Status Date / Time cefepime [From Maxipime] AdvReac Unknown Verified 07/31/19 11:13 Home Medications: Home Medication List Medication Instructions Recorded Confirmed Last Taken Type Nebivolol HCl [Bystolic] 10 mg PO DAILY 07/14/13 04/18/19 04/18/19 History Hydrocodone/Acetaminophen [[place] 1 each PO PRN PRN #20 tablet 10/27/16 04/18/19 04/17/19 Rx 7.5-325 Tablet] Enalapril/Hydrochlorothiazide 1 each PO QAM 12/11/18 04/18/19 04/18/19 History [Enalapril-Hctz 5-12.5 mg Tab] Spironolactone 25 mg PO DAILY 03/26/19 04/18/19 04/11/19 History Ondansetron [Zofran] 4 mg PO Q4H PRN PRN #10 tab 04/12/19 04/18/19 04/16/19 Rx Warfarin Sodium [Coumadin] 1 mg PO DAILY #100 tab 04/12/19 04/18/19 04/11/19 Rx Alprazolam [Xanax] 0.25 mg PO BID PRN 04/18/19 04/18/19 04/18/19 History Levofloxacin [Levaquin] 500 mg PO DAILY #10 tab 04/24/19 Unknown Rx Multivit with Iron,Minerals 1 ea PO DAILY #100 tab 04/24/19 Unknown Rx [Spectravite Senior] - History of Present Illness-C/P Arrest Initial Comments: brought in by EMS. Pt called family this am due to SOB. After they arrived, they called 911 since she was unresponsive. On their arrival, took one breath, became apneic, lost pulse. She was intubated, lucus placed, one epi given via IO. On arrival hear, she was in PEA, tx continued. After 1 epi here, regained perfusing rhythm. Reason for Code Blue?: full arrest Witnessed arrest?: Yes Noted by:: other (and EMS) Bystander CPR?: Yes (EMS) CPR initiated before doctor arrival?: Yes Down-time before ACLS?: see above Initial Findings: no respirations, no pulse Treatment initiated prior to doctor arrival?: Initiated oxygen, Initiated intubated, Initiated CPR/thumper, Initiated epinephrine #mg (1) Similar Symptoms Previously?: No Review of Systems - Adult - REVIEW OF SYSTEMS - ADULT Constitutional: reports: no symptoms reported Eyes: reports: no symptoms reported Ears, Nose, Mouth & Throat: reports: no symptoms reported Cardiovascular: reports: see HPI Respiratory: reports: see HPI Gastrointestinal: reports: no symptoms reported Genitourinary: reports: no symptoms reported Musculoskeletal: reports: no symptoms reported Integumentary: reports: no symptoms reported Neurological: reports: no symptoms reported Past History - Adult - PAST MEDICAL HISTORY-ADULT Review of Records: reports: Medications Reviewed Physical Exam-General - PHYSICAL EXAM-ADULT Initial Vital Signs Reviewed: Yes - CONSTITUTIONAL General Appearance: severe distress - EYES Eyes: other (pupils fixed mid point, no EOMI) - HEAD, EARS, NOSE, MOUTH & THROAT HENMT: moist mucous membranes - NECK Neck: supple - RESPIRATORY Respiratory: other (clear with bag ventilations) - CARDIOVASCULAR Cardiovascular: other (no cardiac activity) - GASTROINTESTINAL (ABDOMEN) Abdominal Exam: soft - MUSCULOSKELETAL Extremity: normal inspection, no pedal edema - SKIN Integumentary: other (cool, dry) - NEUROLOGIC Neurologic: other (no response) - PSYCHIATRIC Psych/Mental Status: other (no response) Progress - PLAN OF CARE/RESULTS Progress/Plan/Lab Results: Vital Signs - 8 hr 07/31/19 11:23 07/31/19 11:24 07/31/19 11:30 Pulse Rate 116 H 110 H 78 Blood Pressure 225/117 O2 Sat by Pulse Oximetry 96 96 95 07/31/19 11:34 07/31/19 11:45 07/31/19 11:47 Pulse Rate 78 81 82 Blood Pressure 104/70 114/79 O2 Sat by Pulse Oximetry 90 L 07/31/19 11:57 07/31/19 12:00 07/31/19 12:02 Pulse Rate 79 79 81 Blood Pressure 116/77 122/82 O2 Sat by Pulse Oximetry 92 L 92 L 94 L 07/31/19 12:15 07/31/19 12:30 Pulse Rate 83 82 Blood Pressure O2 Sat by Pulse Oximetry 93 L 91 L Laboratory Results - last 24 hr 07/31/19 07/31/19 07/31/19 08:55 08:55 08:55 WBC 11.10 H RBC 3.42 L Hgb 11.7 L Hct 38.3 MCV 112.0 H MCH 34.2 H MCHC 30.5 L RDW Std Deviation 14.6 H Plt Count 164 MPV 11.4 H Immature Gran % (Auto) 2.3 H Neut % (Auto) 56.3 Lymph % (Auto) 30.9 [place] % (Auto) 8.5 Eos % (Auto) 1.5 Baso % (Auto) 0.5 Immature Gran # (Auto) 0.26 H Neut # (Auto) 6.24 Lymph # (Auto) 3.43 H [place] # (Auto) 0.94 H Eos # (Auto) 0.17 Baso # (Auto) 0.06 Segmented Neutrophils 34 L Band Neutrophils 27 H Lymphocytes 17 L Monocytes 18 H Nucleated RBCs 1 H Atypical Lymphocytes 4.0 Large Platelets 1+ Polychromasia 1+ Poikilocytosis 1+ Anisocytosis 1+ Radha Cells 1+ Specimen Type Sample Site pH pCO2 pO2 HCO3 Base Excess Oxyhemoglobin ABG O2 Sat (Calculated) ABG O2 Saturation ABG Carboxyhemoglobin ABG Methemoglobin Kapil Test A-a O2 Difference Total Hemoglobin Lactate Blood Gas Modality Spontaneous Rate FiO2 % Tidal Volume PEEP Sodium 142 Potassium 5.2 H Chloride 103 Carbon Dioxide 16 L Anion Gap 23 BUN 29 H Creatinine 2.0 H Estimated GFR/1.73 m2 22 BUN/Creatinine Ratio 15 Glucose 119 H Calculated Osmolality 290 Calcium 8.6 L Total Bilirubin 0.54 AST 296 H ALT 287 H Alkaline Phosphatase 155 H Creatine Kinase 101 Troponin T 0.057 Total Protein 6.3 Albumin 3.5 Globulin 2.8 Albumin/Globulin Ratio 1.3 Urine Source Urine Color Urine Turbidity Urine pH Ur Specific [place] Urine Protein Ur Glucose (Stick) Ur Ketones (Stick) Urine Blood Urine Nitrite Urine Bilirubin Urobilinogen Dipstick Urine Leukocytes Urine WBC (Auto) Urine RBC (Auto) U Epithel Cells (Auto) Urine Bacteria (Auto) Ur Random Creatinine Ur Random Sodium Ur Random Urea Nitrogn 07/31/19 07/31/19 07/31/19 09:04 09:04 10:19 WBC RBC Hgb Hct MCV MCH MCHC RDW Std Deviation Plt Count MPV Immature Gran % (Auto) Neut % (Auto) Lymph % (Auto) [place] % (Auto) Eos % (Auto) Baso % (Auto) Immature Gran # (Auto) Neut # (Auto) Lymph # (Auto) [place] # (Auto) Eos # (Auto) Baso # (Auto) Segmented Neutrophils Band Neutrophils Lymphocytes Monocytes Nucleated RBCs Atypical Lymphocytes Large Platelets Polychromasia Poikilocytosis Anisocytosis Radha Cells Specimen Type ARTERIAL Sample Site R RADIAL pH 7.17 L* pCO2 44 pO2 227 H HCO3 15.5 L Base Excess -12.1 L Oxyhemoglobin 95.6 ABG O2 Sat (Calculated) 16.3 ABG O2 Saturation 99.8 ABG Carboxyhemoglobin 2.50 ABG Methemoglobin 1.6 H Kapil Test YES A-a O2 Difference 431.0 Total Hemoglobin 11.7 Lactate 5.90 H* Blood Gas Modality VENTILATOR Spontaneous Rate 12 FiO2 % 100.0 Tidal Volume 450 PEEP 5.0 Sodium Potassium Chloride Carbon Dioxide Anion Gap BUN Creatinine Estimated GFR/1.73 m2 BUN/Creatinine Ratio Glucose Calculated Osmolality Calcium Total Bilirubin AST ALT Alkaline Phosphatase Creatine Kinase Troponin T Total Protein Albumin Globulin Albumin/Globulin Ratio Urine Source CATH Urine Color YELLOW Urine Turbidity CLEAR Urine pH 6.0 Ur Specific [place] 1.015 Urine Protein 100 A Ur Glucose (Stick) NEGATIVE Ur Ketones (Stick) NEGATIVE Urine Blood SMALL A Urine Nitrite NEGATIVE Urine Bilirubin NEGATIVE Urobilinogen Dipstick NORMAL Urine Leukocytes NEGATIVE Urine WBC (Auto) <10 Urine RBC (Auto) <10 U Epithel Cells (Auto) <10 Urine Bacteria (Auto) NEGATIVE Ur Random Creatinine 94.4 H Ur Random Sodium 43 Ur Random Urea Nitrogn 467 Orders Category Date Time Status Admit - [facility] Routine AdmDCTranf 07/31/19 12:30 Active Intake and Output-Strict ORDERED Care 07/31/19 13:52 Active Nursing- MD Consult Request ROUTINE Care 07/31/19 12:12 Active Nursing- MD Consult Request ROUTINE Care 07/31/19 12:15 Active Nursing- MD Consult Request ROUTINE Care 07/31/19 12:17 Active Nursing- MD Consult Request ROUTINE Care 07/31/19 12:18 Active Nursing- MD Consult Request ROUTINE Care 07/31/19 12:18 Active Nursing- Obtain EKG ONCE Care 07/31/19 08:32 Completed Update & Confirm Home Medicati ROUTINE Care 07/31/19 12:30 Active Z-Document. for Tele Applied ORDERED Care 07/31/19 13:52 Completed MD [Physician/Provider Consults] Routine Cons 07/31/19 12:15 Ordered MD [Physician/Provider Consults] Routine Cons 07/31/19 12:16 Ordered MD [Physician/Provider Consults] Routine Cons 07/31/19 12:17 Ordered MD [Physician/Provider Consults] Routine Cons 07/31/19 12:18 Ordered Physician/Provider Consults Routine Cons 07/31/19 12:12 Ordered Social Service Consult Routine Cons 07/31/19 13:52 Active NPO Diet 07/31/19 12:30 Completed CHEST-1 VIEW [RAD] Stat Exams 07/31/19 08:[address] HEAD W/O CONTRAST [CT] Stat Exams 07/31/19 10:09 Completed LUNG SCAN / VQ [NM] Stat Exams 07/31/19 10:15 Ordered ABG [RESP] Routine Lab 07/31/19 10:19 Completed BLOOD CULTURE [BLDCUL] Routine Lab 07/31/19 12:35 Results BMP [BASIC METABOLIC PANEL] [CHEM] Q6H Lab 07/31/19 12:35 Completed CBC WITH DIFF [HEME] Stat Lab 07/31/19 08:55 Completed CK PROFILE [SP CHEM] Stat Lab 07/31/19 08:55 Completed CK TOTAL [CHEM] Q8H Lab 07/31/19 12:35 Completed COMPREHENSIVE METABOLIC PANEL [CHEM] Stat Lab 07/31/19 08:55 Completed TROPONIN T Q4H Lab 07/31/19 12:52 Completed TROPONIN T Stat Lab 07/31/19 08:55 Completed TSH Stat Lab 07/31/19 12:35 Completed 0.9% Sodium Chloride Inj [Ns] 1,000 ml Med 07/31/19 10:59 Discontinued IV 75 mls/hr Albuterol 2.5MG/Ipratrop 0.5MG [Duoneb (A & A)] Med 07/31/19 15:30 Discontinued 3 ml INH RTQ4H Budesonide [Pulmicort] Med 07/31/19 19:30 Discontinued 0.5 mg INH RTBID Dextrose 5%-Water Inj [D5w] 250 ml Med 07/31/19 10:00 Discontinued Nitroprusside [Nipride] 100 mg IV As Directed mls/hr Furosemide [Lasix] Med 07/31/19 09:00 Discontinued 100 mg .ROUTE .STK-MED ONE Furosemide [Lasix] Med 07/31/19 11:15 Discontinued 80 mg IV NOW ONE Furosemide [Lasix] Med 07/31/19 16:00 Discontinued 80 mg IV ONCE ONE Labetalol Med 07/31/19 10:51 Discontinued 20 mg IV NOW ONE Morphine Med 07/31/19 12:04 Discontinued 2 mg IV Q4H PRN PRN Nitroglycerin Med 07/31/19 08:59 Discontinued 1 inch .ROUTE .STK-MED ONE Nitroglycerin 50 mg/D5w Med 07/31/19 12:15 Discontinued 50 mg in 250 ml IV As Directed mls/hr Ondansetron [Zofran] Med 07/31/19 12:30 Discontinued 4 mg IV Q4H PRN PRN Pharmacy Order [Vancomycin IV Per Pharmacy] Med 07/31/19 10:15 Discontinued 1 each MISC DIRECTED Piperacillin/Tazobactam [Zosyn] 2.25 gm Med 07/31/19 10:15 Discontinued 0.9% Sodium Chloride Inj [Ns] 50 ml IV Q6H Propofol [Diprivan 1%] Med 07/31/19 12:45 Discontinued 1,000 mg in 100 ml IV As Directed mls/hr Sodium Bicarbonate 8.4% Med 07/31/19 12:02 Discontinued 150 meq .ROUTE .STK-MED ONE Sodium Bicarbonate 8.4% Med 07/31/19 10:59 Discontinued 150 meq IV PUSH NOW ONE Sodium Bicarbonate 8.4% Med 07/31/19 11:57 Discontinued 150 meq IV PUSH NOW ONE Vancomycin 1,350 mg Med 07/31/19 11:30 Discontinued 0.9% Sodium Chloride Inj [Ns] 250 ml IV ONCE Aerosol Treatments Routine Oth 07/31/19 12:30 Completed Pulse Oximetry Routine Oth 07/31/19 13:52 Completed Telemetry [OM.EQ] Routine Oth 07/31/19 13:52 Active Ventilator Order Stat Oth 07/31/19 09:34 Active EKG [EKG] Stat Ther 07/31/19 08:32 Draft Venous U/S Bilateral Legs Routine Ther 07/31/19 12:30 Completed Transfer/Admit Order [TRANSFER] Routine Transfer 07/31/19 12:19 Completed pt later lost pulse, CPR resumed, given epi, bicarb. CXR showed diffuse pul edema, NTP placed, Lasix given Result Diagrams: 07/31/19 08:55 07/31/19 12:35 - EKG 1 Time of EKG reading by physician:: 08:40 EKG Read and Signed by:: Denis Herzog EKG Interpretation (*Must complete 3 of following elements*): Abnormal Rate: 100 Rhythm: a fib, RVR QRS: NSIVCD, poor R wave progression ST Wave: non-specific ST changes (poss lat ischemia) - CONSULTS/PCP/HOSPITALIST Notification #1 *Consult/PCP/Hospitalist*: tito Daniels Time Discussed: 09:40 Departure - Departure Date of Disposition Decision: 07/31/19 Time of Disposition Decision: 08:30 DIAGNOSIS: Cardiac arrest Disposition: ADMITTED INPATIENT 09 Certified Medical Emergency: Emergent Condition: Critical - Critical Care Note This patient required my direct & personal management of CC.: Yes Attestation - Physician/ SHUN Attestation Patient care was provided by Advanced Practice Provider:: No The physician spent face to face time with patient:: Yes Advanced Practice Provider documentation review:: Supervising physician onsite and consulted in the evaluation and care of this patient. The physician did have a face to face encounter with the patient.
--- NOTE | 2019-07-31 09:04 | Diag Imaging Result Doc PS360 ---
EXAM: CHEST-1 VIEW INDICATION: post arrest TECHNIQUE: One view COMPARISON: None. FINDINGS: The newly placed ET tube is identified projecting over the trachea and above the ralph at about the T4 level. There are diffuse infiltrates bilaterally that appear to be predominantly interstitial suggesting edema. There is no discrete pleural fluid collection or pneumothorax. The cardiac silhouette is borderline to mildly prominent, possibly due to magnification from AP technique. IMPRESSION: 1.Newly placed ET tube identified as described. 2.Diffuse bilateral infiltrates that are predominantly interstitial. Electronically signed by Adryan Cowan 07/31/2019 9:01 AM
[2019-07-31 09:11] LABS: BASO# 0.06 X1000 (0.0-0.2); BASO% 0.5 % (0.0-0.8); EOS# 0.17 X1000 (0.0-0.7); EOS% 1.5 % (0.0-10.0); HEMATOCRIT 38.3 % (37.0-47.0); HEMOGLOBIN 11.7 g/dL (12.0-16.0); IMM GRAN# 0.26 X1000 (0.0-0.04); IMM GRAN% 2.3 % (0.0-0.5); LYMPH# 3.43 X1000 (1.2-3.4); LYMPH% 30.9 % (20.5-51.1); MCH 34.2 PG (27-31); MCHC 30.5 g/dL (33-37); MONO# 0.94 X1000 (0.11-0.59); MONO% 8.5 % (1.7-9.3); MPV 11.4 FL (7.4-10.4); NEUT# 6.24 X1000 (1.4-6.5); NEUT% 56.3 % (42.2-75.2); PLT 164 X1000 (130-400); RBC 3.42 XMIL (4.2-5.4); RDW 14.6 % (11.5-14.5)
[2019-07-31 09:27] LABS: ALB/GLOB RATIO 1.3; ALBUMIN 3.5 g/dL (3.5-5.0); CALCIUM 8.6 mg/dL (8.8-10.2); POTASSIUM 5.2 mmol/L (3.5-5.1); TOTAL BILIRUBIN 0.54 mg/dL (0.20-1.00); TOTAL PROTEIN 6.3 g/dL (6.3-8.3)
[2019-07-31 09:52] LABS: BANDS 27 % (0-1); LYMPHS 17 % (21-51); MONO 18 % (1-9); NRBC 1 % (0-0); SEGS 34 % (42-75)
[2019-07-31 09:54] LABS: ANISOCYTOSIS 1+; BURR CELLS 1+; LARGE PLATELETS 1+; POLYCHROM 1+
[2019-07-31 09:55] LABS: POIKILOCYTOSIS 1+
[2019-07-31] MEDS ORDERED: NIPRIDE 100 MG in D5W 250 ML IV SCH (10:00)
--- NOTE | 2019-07-31 10:02 | ED EKG INTERP ---
This chart was entered by Yara Langston Scribe, acting as scribe for Denis Herzog MD. EKG Interpretation - EKG Time of EKG reading by physician:: 08:36 EKG Read and Signed by:: Denis Herzog EKG Interpretation (*Must complete 3 of following elements*): Abnormal Rate: 100 Rhythm: undetermined rhythm [place]: normal QRS: other (nonspecific intraventricular block/possible right ventricular hypertrophy/canot rule out septal infarct, age undetermined/lateral infarct, age undetermiend) [place] Interval: normal ST Wave: normal Comments: T wave abnormality, consider inferior ischemia - EKG # 2 Time of EKG reading by physician:: 09:52 EKG Read and Signed by:: Denis Herzog EKG Interpretation (*Must complete 3 of following elements*): Abnormal Rate: 101 Rhythm: sinus tachycardia [place]: left (deviation) QRS: other (low voltage qrs) [place] Interval: normal ST Wave: normal Prior EKG Comparison: changes noted Comments: marked ST abnormality, possible inferior subendocardial injury Attestation - Physician/ SHUN Attestation Patient care was provided by Advanced Practice Provider:: No The physician spent face to face time with patient:: Yes Advanced Practice Provider documentation review:: Supervising physician onsite and consulted in the evaluation and care of this patient. The physician did have a face to face encounter with the patient. This chart was documented by the indicated scribe, (Yara Langston Scribe) and accurately reflects the services I performed and decisions made by me, Denis Herzog MD, as attested by the provider's signature.
[2019-07-31] MEDS ORDERED: VANCOMYCIN IV PER PHARMACY MISC SCH (10:15)
[2019-07-31] MEDS ORDERED: ZOSYN 2.25 GM in NS 50 ML IV SCH (10:15)
[2019-07-31 10:26] LABS: ALLEN TEST YES; BE -12.1 mmoll (-3.0-3.0); BLOOD TYPE ARTERIAL; HCO3-(ACT) 15.5 mmoll (20.0-26.0); METHB 1.6 % (0.0-1.5); O2(CT) 16.3 mL/dL (15.0-23.0); O2HB 95.6 % (95.0-99.0); PCO2(98.6) 44 mmHg (35-45); PO2(98.6) 227 mmHg (60-100); SAMPLE BLOOD; SAO2 99.8 % (95.0-100.0); SRATE 12 BPM; THB 11.7 g/dL (11.5-17.4); TVOL 450 mL
[2019-07-31 10:30] LABS: MODALITY VENTILATOR; pH(98.6) 7.17 (7.35-7.45)
[2019-07-31] MEDS ORDERED: LABETALOL IV ONE (10:51)
[2019-07-31] MEDS ORDERED: NS 1,000 ML IV ONE (10:59)
[2019-07-31] MEDS ORDERED: SODIUM BICARBONATE 8.4% IV PUSH ONE ×2 (10:59→11:57)
[2019-07-31] MEDS ORDERED: LASIX IV ONE ×2 (11:15→16:00)
--- NOTE | 2019-07-31 11:26 | Diag Imaging Result Doc PS360 ---
CT HEAD W/O CONTRAST - 07/31/2019 INDICATION: unresponsi COMPARISON: 04/20/2019 FINDINGS: There is stable advanced periventricular white matter hypodensity compatible with chronic microvascular ischemia. The ventricles and sulci are normal in size and contour. No intracranial mass or hemorrhage. The skull is intact. The sinuses, mastoids, and middle ears are clear. IMPRESSION: Advanced chronic microvascular ischemia. No acute process. No change from prior. This exam was performed using automated exposure control, adjustment of mA or kV according to patient size, and/or use of iterative reconstruction technique Electronically signed by Mihir Luo 07/31/2019 11:24 AM
[2019-07-31] MEDS ORDERED: VANCOMYCIN 1,350 MG in NS 250 ML IV ONE (11:30)
[2019-07-31] MEDS ORDERED: SODIUM BICARBONATE 8.4% ONE ×2 (12:02→13:00)
[2019-07-31] MEDS ORDERED: MORPHINE IV PRN (12:04)
[2019-07-31] MEDS ORDERED: NITROGLYCERIN 50 MG/D5W 50 MG/250 ML IV.SOLN IV SCH (12:15)
[2019-07-31] MEDS ORDERED: ZOFRAN IV PRN (12:30)
[2019-07-31] MEDS ORDERED: DIPRIVAN 1% 1,000 MG/100 ML BOTTLE IV SCH (12:45)
--- NOTE | 2019-07-31 12:54 | HISTORY AND PHYSICAL ---
ADDENDUM: I agree with most of the history, physical, assessment, and plan. In brief, Ms. Vásquez is a 78-year-old lady with past medical history of multiple myeloma, anemia of chronic disease, essential hypertension, iron-deficiency anemia, peripheral artery disease status post stent, multiple failed intravenous ports and accesses, who was brought in after cardiorespiratory arrest. Apparently, the patient was found to be in a lot of short shortness of breath in the morning time when she woke up, so her daughter called Emergency Medical Services. By the time EMS arrived, she had stopped breathing, and EMS had to start cardiopulmonary resuscitation. The EMS also had to put in an intraosseous line, and then she was brought to the emergency room. The exact down time for return of spontaneous circulation is not known. However, in the emergency room, she again had cardiac arrest, and she needed further cardiopulmonary resuscitation. She was intubated in the emergency room, and the hospitalist team was consulted for further management. At the time of my evaluation, the patient is not responding. She does have occasional twitching or biting of the endotracheal tube. PHYSICAL EXAMINATION: VITAL SIGNS: She is afebrile to touch, temperature of 99.1 degrees, pulse 108, she is on ventilator, blood pressure is 200/100, and she is saturating 93% on 100% FiO2. HEENT: Pupils are bilaterally constricted, not reacting. No pool of saliva in mouth. She has diffuse crackles, bilateral lung bravo. No wheeze. CARDIOVASCULAR: S1, S2 normal. Appears regular on monitor. No murmur, rub, or gallop. ABDOMEN: Soft, nontender. Active bowel sounds. She just had a bowel movement. EXTREMITIES: No lower extremity edema. LABORATORY DATA: Remarkable for mild leukocytosis, macrocytosis, normal platelet count, lactic acidosis, elevated anion gap, hyperkalemia, transaminitis, acute kidney injury, mild elevation of troponin. MICROBIOLOGY: No data. IMAGING: Head CT was unremarkable. She did have advanced chronic microvascular ischemia without any acute process. Chest x-ray has bilateral pulmonary edema. ASSESSMENT: 1. Primarily respiratory arrest, and then probably cardiac arrest x2. 2. Acute hypoxic respiratory failure. 3. Hypertensive emergency. 4. Acute kidney injury with elevated anion gap metabolic acidosis and lactic acidosis. 5. Transaminitis, which could be in the setting of shock liver. 6. History of multiple myeloma. PLAN: It is possible that the patient had hypertensive emergency which led to flash pulmonary edema, primary respiratory failure, and then cardiac arrest. Head CT was unremarkable. I will start the patient on nitroglycerin drip with a goal systolic blood pressure of 160 to 180 mmHg in the first 24 hours. I will also give her intravenous Lasix to see if she has any urine output. She was noted to have some twitching movements while intubated, and had a bowel movement as well. She does not have any documented history of seizure. We will consult Neurology as well. DISPOSITION: The patient's condition is critical. Plan of care was discussed with the patient's sister and daughter. All of their questions were answered. TIME SPENT: More than 30 minutes of critical care time was spent in taking care of this patient. cc: Marc Pleitez MD
[2019-07-31] MEDS ORDERED: EPINEPHRINE SYRINGE ONE ×2 (13:00→14:00)
[2019-07-31 13:52] VITALS: BP 124/73
[2019-07-31 13:57] LABS: CREATININE 2.4 mg/dL (0.5-0.9); POTASSIUM 4.3 mmol/L (3.5-5.1)
[2019-07-31 13:57] LABS: URINE SOURCE CATH
[2019-07-31] MEDS ORDERED: ATROPINE SYRINGE ONE (14:00)
--- NOTE | 2019-07-31 14:00 | EKG Report ---
Test Performed on : 07/31/2019 09:52:26 AM Test Reason : ED. No order iN MT Blood Pressure : / mmHG Vent. Rate : 101 BPM Atrial Rate : 101 BPM P-R Int : 168 ms QRS Dur : 070 ms QT Int : 362 ms P-R-T Axes : 079 -45 202 degrees QTc Int : 469 ms Sinus tachycardia. Possible Left atrial enlargement Left axis deviation Low voltage QRS Marked ST abnormality, possible inferior subendocardial injury Abnormal ECG When compared with ECG of 20-APR-2019 12:12, ST now depressed in Inferior leads ST now depressed in Anterior leads T wave inversion now evident in Lateral leads Unconfirmed Result
[2019-07-31 14:10] LABS: BILIRUBIN URINE NEGATIVE (NEGATIVE); BLOOD URINE SMALL (NEGATIVE); COLOR YELLOW; GLUCOSE URINE NEGATIVE (NEGATIVE); KETONE URINE NEGATIVE (NEGATIVE); LEUKOCYTES URINE NEGATIVE (NEGATIVE); NITRITE URINE NEGATIVE (NEGATIVE); PROTEIN URINE 100 mg/dL (NEGATIVE); SP GRAVITY URINE 1.015; TURBIDITY URINE CLEAR (CLEAR); UROBILINOGEN URINE NORMAL (NORMAL)
[2019-07-31 14:11] LABS: UR EPITHELIAL CELLS <10 /HPF (<10); URINE BACTERIA NEGATIVE /HPF; URINE RBC <10 /HPF (<10); URINE WBC <10 /HPF (<10)
[2019-07-31 14:14] LABS: UR CREAT RANDOM 94.4 mg/dL (11-20)
[2019-07-31 14:26] LABS: ALLEN TEST YES; BE -16.3 mmoll (-3.0-3.0); HCO3-(ACT) 11.1 mmoll (20.0-26.0); METHB 0.9 % (0.0-1.5); O2(CT) 3.5 mL/dL (15.0-23.0); PCO2(98.6) 46 mmHg (35-45); SAMPLE BLOOD; SAO2 29.4 % (95.0-100.0); THB 8.5 g/dL (11.5-17.4)
[2019-07-31 14:28] LABS: BLOOD TYPE VENOUS; pH(98.6) 7.06 (7.35-7.45)
[2019-07-31 14:29] LABS: MODALITY AMBU BAG; O2HB 28.9 % (95.0-99.0); PO2(98.6) 23 mmHg (60-100)
[2019-07-31] MEDS ORDERED: LEVOPHED 8 MG in D5 1/2 NS 250 ML IV SCH (14:30)
[2019-07-31] MEDS ORDERED: D50W SYRINGE IV PRN (14:32)
[2019-07-31] MEDS ORDERED: D50W SYRINGE IV ONE (14:32)
--- NOTE | 2019-07-31 14:32 | HISTORY AND PHYSICAL ---
PRIMARY CARE PROVIDER: No one. PRIMARY AREA FIELD WORKER: Dr. Gomez. PRIMARY AGRONOMY TECHNICIAN: Dr. Ravi. CHIEF COMPLAINT: Was found unresponsive on the scene, but was reported by family as short of breath. HISTORY OF PRESENT ILLNESS: Ms. Tiffany Vásquez is a 78-year-old female with a medical history of multiple myeloma, currently under active treatment with Dr. Gomez, also a history of lupus in the past, but not treated for it now, peripheral vascular disease, iron- deficiency anemia, and earlier this year, right groin Enterobacter due to an infected right groin port, which has since been removed. According to the family and the friend who is at the bedside, she was in her normal state of health yesterday, but really since March, she has had generalized weakness since her last admission, but she has been getting home health and some physical therapy, and apparently she has been doing much better, improving, just some shortness of breath with activity, but no fluid, weight gain in her legs, but apparently around 2:00 this morning, she woke her daughter up with significant shortness of breath. Apparently, she passed out by 7:45 this morning, and the only complaint during that time, despite the shortness of breath, was just generalized pain and discomfort. After she passed out, prior to arrival of EMS, they arrived and immediately started CPR and ACLS protocol. There was return of spontaneous circulation. She was intubated in the field. She was brought in. Never received anything for sedation, and then once again had, around 0843, her second bout of PEA, cardiac arrest. Again, this was treated per ACLS protocol, and had return of spontaneous circulation. Currently, she is pretty hypertensive. She is still not waking up. She had one witnessed spell by myself of almost seizure-like activity that did not last but a few seconds. Her pupils are about a 2 and sluggish. She did not follow any commands. She does have a gag, and she chews on the endotracheal tube. Some possible diagnoses are acute systolic congestive heart failure where she had flash pulmonary edema that caused her to have acute respiratory failure and then cardiac arrest. She does have some kidney dysfunction. Currently, she will be remaining intubated, and transferred to the ICU, and appropriate consults ordered. PAST MEDICAL HISTORY: 1. Multiple myeloma, under active treatment with Dr. Gomez. 2. Recent right groin port infection with Enterobacter. 3. Anemia of chronic disease and iron-deficiency anemia. 4. Hypertension. 5. History of lupus in the past, but does not get treated for it, according to her daughter. 6. Peripheral vascular disease with a history of a left leg vascular stent. PAST SURGICAL HISTORY: 1. Cholecystectomy. 2. Hysterectomy. 3. Port-A-Cath placement in the right chest. 4. History of port placement in the right groin that apparently got infected with Enterobacter, and was removed. 5. Vascular stent on the left leg. 6. Kyphoplasty. SOCIAL HISTORY: Normally, she lives alone, but for the last 3-1/2 months, she has been living with her family, essentially since March when she got out of the hospital this last visit. Currently smokes. She has been less than a 1-pack per day smoker for 50+ years, rarely drinks alcohol, and no illicit drug use. She uses a walker to get around the home. FAMILY HISTORY: Father: Alcohol abuse. Daughter: Anemia. Mother: Arthritis. Brother: Colon cancer. Sister: An CT in her 80s. ALLERGIES: They state that it is cefepime, and that it causes altered mentation. HOME MEDICATIONS: Home medications have not been reconciled, but what is listed is Bystolic, enalapril, hydrochlorothiazide, spironolactone, Xanax, Coumadin, Levaquin, Crane, multivitamin with iron, and Zofran. REVIEW OF SYSTEMS: Unable to obtain. PHYSICAL EXAMINATION: VITAL SIGNS: Temperature 99.1 degrees, heart rate 86, respiratory rate 29, blood pressure 131/89, O2 saturation not really a good waveform, it has ranged anywhere from [address] up to 100, depending on if she is being bagged. The sat probe is on her forehead. HEENT: Atraumatic, normocephalic. Pupils are equal and sluggish, about 2 mm. Unable to do extraocular movements. Mucous membranes are very moist. NECK: Trachea midline. CARDIOVASCULAR: S1, S2. Regular rate and rhythm. No rubs, gallops, murmurs. No lower extremity edema. There are +2 dorsalis and radial pulses. Negative JVD or carotid bruits. PULMONARY: Coarse throughout anteriorly. Has an oral endotracheal tube in. No air leak, and is on mechanical ventilation. It seems like maybe there is some accessory muscle use just from patient agitation. GASTROINTESTINAL: Soft. Hypoactive bowel sounds. GENITOURINARY: Hauser catheter. EXTREMITIES: Currently will not move extremities to command. There is some spontaneous movement in the legs during a cough. Pain stimuli causes slight withdrawal. NEUROLOGIC: Positive gag. There is a positive corneal. SKIN: Warm, dry, intact. LABORATORY DATA: White blood cells 11,000, hemoglobin 11, hematocrit 38, platelet count 164,000. ABGs show pH 7.17, pCO2 of 44, PO2 of 227, bicarb 15, base excess -12, saturation 95%. Lactate 5.9. Mechanical ventilation, probably SIMV, rate 12, 100%, tidal volume 450, with a PEEP of 5, pressure support not available under labs. Sodium 142, potassium 5.2, BUN 29, creatinine 2.0, glucose 119, calcium 8.6. Bilirubin 0.54, AST 296, ALT 287, alkaline phosphatase 155. CK 101, troponin 0.057. Albumin 3.5. IMAGING: Chest x-ray: Diffuse bilateral infiltrates. EKG: Wide QRS rhythm. It looks like a little bit of ST depression, some peaked T-waves. Rate is 100, QTc is 510, and it looks like sinus rhythm with a PAC every other beat. Head CTA: Advanced chronic microvascular ischemic changes, no acute. ASSESSMENT AND PLAN: 1. Acute hypoxemic respiratory failure with respiratory and cardiac arrest, pulseless electrical activity arrest. Had advanced cardiac life support protocol x2, was intubated, had return of spontaneous circulation x2. It is questionable whether it was an acute congestive heart failure that caused the flash pulmonary edema and respiratory arrest. Also possible pulmonary emboli that could have caused acute respiratory arrest. Currently, a V/Q scan is ordered as she does have kidney dysfunction at this time. She is currently unresponsive, but will open her eyes, non-focusing, will chew on the tube, will not follow commands, so it could possibly be some anoxic-type injury. She will have a consult for Neurology, Cardiology, Pulmonology. 2. Acute hypoxemic respiratory failure. Continue with mechanical ventilation, nebulizers added, and Pulmonary is consulted. The patient is not alert, but is agitated and coughing against the ventilator continuously, so propofol will be added. 3. Acute kidney injury on what is likely chronic kidney disease stage 3A with hyperkalemia. Will do urine labs, renal ultrasound, and consult Nephrology. I believe she did get some intravenous fluids in the beginning, but due to the question of possible acute pulmonary edema, she also received 80 of intravenous Lasix. 4. Transaminitis. Will have to monitor that daily. She may need an ultrasound of the abdomen, but she is going to have a renal ultrasound. 5. Leukocytosis. Broad-spectrum antibiotics added. She has lactic acidosis with it, so it could be sepsis or could be a result of cardiac arrest. Recently earlier this year, had right groin Enterobacter, so will be monitoring for the blood cultures. 6. History of multiple myeloma, under active treatment, and family reports that she also has a history of lupus. Dr. Gomez sees her. Will consult him. 7. Iron-deficiency anemia with chronic anemia, currently stable. Apparently, she has been on Coumadin at home. Will monitor that as well. 8. Questionable seizure-like activity witnessed at the bedside. Again, Neurology is being consulted. She will be in the intensive care unit to monitor for that, and head CT was negative. Dictated by MELISSA Berg for Marc Pleitez MD cc: MELISSA Berg MD I agree with most components of history, physical, assessment and plan. A separate addendum has been dictated. CASSANDRA
--- NOTE | 2019-07-31 14:33 | EKG Report ---
Test Performed on : 07/31/2019 2:25:26 PM Test Reason : CARDIAC ARREST Blood Pressure : / mmHG Vent. Rate : 109 BPM Atrial Rate : 109 BPM P-R Int : 292 ms QRS Dur : 084 ms QT Int : 258 ms P-R-T Axes : 046 -83 144 degrees QTc Int : 347 ms Sinus tachycardia. with 1st degree AV block. Left axis deviation ST & T wave abnormality, consider anterior ischemia Abnormal ECG When compared with ECG of 31-JUL-2019 09:52, (Unconfirmed) OK interval has increased ST no longer depressed in Inferior leads T wave inversion now evident in Inferior leads T wave inversion now evident in Anterior leads QT has shortened Confirmed by Delia DESHPANDE, Roberto Bernardo ([id number]) on 07/31/2019 7:44:02 PM
--- NOTE | 2019-07-31 14:33 | EKG Report ---
Test Performed on : 07/31/2019 2:29:29 PM Test Reason : CARDIAC ARREST Blood Pressure : / mmHG Vent. Rate : 102 BPM Atrial Rate : 102 BPM P-R Int : 186 ms QRS Dur : 074 ms QT Int : 374 ms P-R-T Axes : 072 -72 102 degrees QTc Int : 487 ms Sinus tachycardia. Left axis deviation Low voltage QRS ST & T wave abnormality, consider anterolateral ischemia Abnormal ECG When compared with ECG of 31-JUL-2019 14:25, (Unconfirmed) SC interval has decreased T wave inversion no longer evident in Inferior leads QT has lengthened Confirmed by Delia DESHPANDE, Roberto Bernardo ([id number]) on 07/31/2019 7:44:05 PM
--- NOTE | 2019-07-31 14:34 | HISTORY AND PHYSICAL ---
ADDENDUM REPORT ASSESSMENT AND PLAN: Hypertensive urgency emergency, running 200 systolically over greater than 100. Will be started on nitroglycerin drip. Dictated by MELISSA Berg for Marc Pleitez MD cc: MELISSA Berg MD
[2019-07-31] MEDS ORDERED: D50W SYRINGE ONE (14:39)
--- NOTE | 2019-07-31 14:54 | Diag Imaging Result Doc PS360 ---
CHEST-PORTABLE - 07/31/2019 INDICATION: Follow up CHest Xray COMPARISON: 8:49 AM FINDINGS: Stable endotracheal tube in good position. There is been slight decrease in the dense bilateral predominantly interstitial infiltrates. Stable borderline cardiomegaly. IMPRESSION: Decrease in the dense bilateral infiltrates. Electronically signed by Mihir Luo 07/31/2019 2:52 PM
--- NOTE | 2019-07-31 15:26 | PROGRESS NOTE ---
DATE: 07/31/2019 ADDENDUM TO PREVIOUS HISTORY AND PHYSICAL: I reevaluated Ms. Vásquez in the ICU. As I was reevaluating her oxygen saturations were dropping and we had to start doing bag ventilation. Her pulse started dropping from 80s to 40s and 30s. I gave a dose of atropine after which her pulse did increase to 60s. However, again it started dropping to 30s and it was undetectable. We were also not able to get the blood pressure, so chest compressions were resumed according to ACLS protocol. During the protocol she received almost 2 to 3 ampules of epinephrine. Intravenous fluids where started through intra osseous line and high-quality chest compressions were started after which there was return of spontaneous circulation. I also started the patient on norepinephrine drip and I will stop the nitroglycerin drip for now. I went to the waiting area and updated the patient's sister and daughter about the patient. I explained to them that her condition is really critical and her prognosis is poor considering she has had cardiac arrest already 3 times. They understood her prognosis and decided to make the patient do not resuscitate level 1, so if she codes again, we would not give chest compressions and instead let her pass peacefully. Additional 45 minutes were spent in taking care of this patient. cc: Marc Pleitez MD MTDD
[2019-07-31] MEDS ORDERED: DUONEB (A & A) INH SCH (15:30)
[2019-07-31] MEDS ORDERED: PULMICORT INH SCH (19:30)
--- NOTE | 2019-08-01 05:12 | DISCHARGE SUMMARY ---
ADMISSION DATE: 07/31/2019 DISCHARGE DATE: 07/31/2019 CAUSE OF : Acute hypoxic Respiratory failure, due to acute pulmonary edema due to hypertensive emergency. TIME OF : 03:26 in the afternoon. HOSPITAL COURSE SUMMARY: Ms. Vásquez was a 78-year-old lady with history of multiple myeloma who woke up today morning with shortness of breath, which prompted her daughter to call the EMS. By the time EMS arrived, she had stopped breathing, and she had to be started with chest compressions. She was brought to the emergency room. She was intubated, and intraosseous access was obtained. However, here in the emergency room, she lost her pulse again, and she was again resuscitated. The total down time was at least more than 30 minutes. After that, she was admitted to ICU. It was thought that she could have gone into flash pulmonary edema from hypertensive emergency that may have caused respiratory failure primary, and later on cardiac arrest. In the ICU, she again lost her pulse and required another resuscitation attempt with 2 amps of epinephrine and about 5 minutes of resuscitation following which she had return of spontaneous circulation. The family was kept updated about her course and critical illness. They had decided to make do not resuscitate level 1. At around 3:26 in the afternoon, the patient again lost her pulse and went into asystole. I evaluated the patient at bedside. Her pupils had bilateral fix not reacting. She has no carotid or radial pulses. She does not have cardiac activity when the ventilator was turned off. She did not have any spontaneous breathing as well. She was pronounced. Family was at bedside. cc: Marc Pleitez MD MTDD
--- NOTE | 2019-08-01 18:51 | Extremity Venous Study ---
PROCEDURE NAME: Venous U/S Bilateral Legs - 07/31/2019 REFERRING PROVIDER: MELISSA Berg READING PHYSICIAN: Rafa Whipple MD CINDER BLOCK MASON: Carlos. INDICATION: The patient is unresponsive, rule out deep venous thrombosis. Comparison study is 04/23/2018. FINDINGS: The deep and superficial veins of both lower extremities were imaged throughout their course. They are compressible, patent and without thrombus. INTERPRETATION: No deep venous thrombosis or superficial venous thrombosis of either lower extremity. cc: MD Francoise Jeff CRNP
== END 2019-07-31 15:36 | disposition expired | DRG 304 ==
LOC: SUPCPDRO → ED 08:18 → ICU 12:35
PROVIDERS: ATTEND Internal Medicine